=== PATIENT | male | born 1975 | race Caucasian/White ===

== ENCOUNTER 2017-03-18 06:07 | Observation (INO) | payer MEDICARE, SELFPAY ==
[2017-03-18 06:08] VITALS: BP 155/80; PULSE 94; RESP 18; TEMP 36.6; O2SAT 96; BMI 51.3
--- NOTE | 2017-03-18 06:18 | CT_ITS ---
CT abdomen pelvis wo con CLINICAL INDICATION: Generalized abdominal pain worse since last night ITS.REASON: ABD PAIN ORDERING PHYSICIAN: Sidney Judge MD PATIENT AGE: 41 years COMPARISON: None TECHNIQUE: Axial images obtained with sagittal and coronal reformats. PROCEDURE: Oral Contrast: None IV Contrast: None . FINDINGS: Lung base images are unremarkable aside from multiple healing rib fractures posteriorly. The liver, spleen, adrenal glands, pancreas, gallbladder, and kidneys have an unremarkable unenhanced CT appearance. No obvious intestinal obstruction or free air. There is thickening of the anterior abdominal wall at the level of the umbilicus. There is focal thickening of the small bowel at this region. There may be a small knuckle of a hernia at this area containing a loop of the small bowel.. Repeat exam with IV and oral contrast recommended for further evaluation. There is colonic diverticulosis. No evidence of diverticulitis. IMPRESSION: Single loop of thickened small bowel closely associated with the anterior abdominal wall with postoperative changes of the intra-abdominal wall. Small possible knuckle of the hernia at this area. Recommend repeat exam with IV and oral contrast.
[2017-03-18 06:31] LABS: Microscopic, Urine URINE MICROSCOPIC (MICROSCOPIC)
[2017-03-18 06:54] LABS: Basophils % 0.3 % (0.1-2.0); Eosinophils # 0.2 K/mm3 (0.0-0.4); Eosinophils % 1.3 % (0.1-12.0); Hematocrit 44.6 % (42.0-52.0); Hemoglobin 14.2 g/dL (14.1-18.0); Lymphocytes # 1.7 K/mm3 (0.7-4.5); Lymphocytes % 12.2 K/mm3 (10-50); Mean Corpuscular HGB Conc 31.8 g/dL (31.8-35.4); Mean Corpuscular Hemoglobin 27.9 pg (27.0-31.2); Mean Corpuscular Volume 87.7 fl (80-94); Mean Platelet Volume 7.8 fl (7.4-10.4); Monocytes # 0.6 K/mm3 (0.1-1.0); Neutrophils # 11.5 K/mm3 (1.8-7.8); Neutrophils % 82.2 % (37.0-80.0); Platelet Count 212 K/mm3 (142-424); Red Blood Count 5.09 M/mm3 (4.60-6.20); Red Cell Distribution Width 14.4 % (11.5-17.5); White Blood Count 13.9 K/mm3 (4.8-10.8)
[2017-03-18 06:56] LABS: Appearance,Urine CLEAR (Clear); Bilirubin,Urine Negative (Negative); Blood, Urine TRACE-I (Negative); Color,Urine YELLOW (Yellow); Glucose,Urine (UA) Negative (Negative); Ketones,Urine Negative (Negative); Leukocyte Esterase,Urine Negative (Negative); Nitrate,Urine Negative (Negative); Protein,Urine TRACE (Negative); Specific Gravity, Urine >= 1.030 (1.005-1.030); Urobilinogen,Urine 0.2 EU/dl (0.2)
[2017-03-18 07:00] LABS: Amorphous Sediment,Urine Trace /lpf; Mucus,Urine 3+ /lpf
[2017-03-18 07:07] LABS: Alanine Aminotransferase 23 U/L (12-78); Albumin Level 3.1 gm/dL (3.4-5.0); Albumin/Globulin Ratio 0.7 (1.1-1.8); Alkaline Phosphatase 84 U/L (46-116); Amylase 27 U/L (25-125); Anion Gap 9.6 mEq/L (5-15); Aspartate Amino Transferase 11 U/L (15-37); Bilirubin,Total 0.3 mg/dL (0.2-1.0); Blood Urea Nitrogen 14 mg/dL (7-18); Carbon Dioxide 33 mmol/L (21.0-32.0); Chloride 104 mmol/L (98-107); Creatinine Clearance Estimated 113 mL/min (0-300); Creatinine,Serum 0.98 mg/dL (0.70-1.30); Estimated Glomerular Filt Rate 83 ml/min (>60); GFR (African American) 101 ML/MIN (>60); Globulin 4.2 gm/dl (1.3-3.2); Glucose 122 mg/dL (74-106); Lipase 59 u/L (73-393); Potassium 4.6 mmoL/L (3.5-5.1); Sodium 142 mmol/L (136-145); Total Protein,Serum 7.3 gm/dL (6.4-8.2)
--- NOTE | 2017-03-18 07:29 | HMH.EDNVD ---
ED Disposition Condition on Discharge: Good - Critical Care Critical Care Time: No <AlfieSidney Jaime - Last Filed: 03/18/17 08:06> Condition on Discharge: Fair - Critical Care Critical Care Time: No <CassiemilyJosé Miguel - Last Filed: 03/18/17 13:12> Clinical Impression: Small bowel obstruction, Enteritis, Abdominal pain Disposition: Still a Patient Instructions: DI for Acute Abdomen Referrals: Edyta Begum PA [Primary Care Provider] - Attestation: On 03/18/17, the high probability of a clinically significant, sudden or life threatening deterioration of the following system(s) required my full and direct attention, intervention and personal management. The time I documented below is in addition to time spent performing reported procedures but includes the following listed in this critical care notation. Medical Decision Making - Medical Records Medical records reviewed: Yes: I reviewed the patient's medical records. - Lab Data Lab results reviewed: Yes: I reviewed the patient's lab results. Result diagrams: 03/18/17 06:45 03/18/17 06:45 - CT Data CT Scan: Abdomen, Pelvis Time Received: 08:[address] Reviewed: Yes: I have viewed the radiologist's interpretation Preliminary Findings: Abnormal - Physician Consults Physician Consulted: daniel Reason -: Pt condition - Jese Inquiry Pt receiving controlled substance: No <AlfieSidney Jaime - Last Filed: 03/18/17 08:06> - Lab Data Result diagrams: 03/18/17 06:45 03/18/17 06:45 - Jese Inquiry Pt receiving controlled substance: No Jese was queried for this patient: No <TamannaJosé Miguel - Last Filed: 03/18/17 13:12> Vital Signs: 03/18/17 06:08 Temperature 97.9 F Temperature Source Oral Pulse Rate [Right Brachial] 94 H Respiratory Rate 18 Blood Pressure [Right Arm] 155/80 Blood Pressure Mean [Right Arm] 105 02 Sat by Pulse Oximetry 96 Oxygen Delivery Method Room Air - Lab Data Lab Results 03/18/17 06:25: Urine Color Yellow, Urine Appearance Clear, Urine pH 6.0, Ur Specific [place] >= 1.030, Urine Protein Trace, Urine Glucose (UA) Negative, Urine Ketones Negative, Urine Blood Trace-i, Urine Nitrate Negative, Urine Bilirubin Negative, Urine Urobilinogen 0.2, Ur Leukocyte Esterase Negative, Urine RBC 3-5, Amorphous Sediment Trace, Urine Mucus 3+ 03/18/17 06:45: WBC 13.9 H, RBC 5.09, Hgb 14.2, Hct 44.6, MCV 87.7, MCH 27.9, MCHC 31.8, RDW 14.4, Plt Count 212, MPV 7.8, Neut % (Auto) 82.2 H, Lymph % (Auto) 12.2, [place] % (Auto) 4.0, Eos % (Auto) 1.3, Baso % (Auto) 0.3, Neut # (Auto) 11.5 H, Lymph # (Auto) 1.7, [place] # (Auto) 0.6, Eos # (Auto) 0.2, Baso # (Auto) 0.0 03/18/17 06:45: Sodium 142, Potassium 4.6, Chloride 104, Carbon Dioxide 33 H, Anion Gap 9.6, BUN 14, Creatinine 0.98, Estimated Creat Clear 113, Estimated GFR 83, Est GFR ( Amer) 101, Glucose 122 H, Calcium 9.0, Total Bilirubin 0.3, AST 11 L, ALT 23, Alkaline Phosphatase 84, Total Protein 7.3, Albumin 3.1 L, Globulin 4.2 H, Albumin/Globulin Ratio 0.7 L, Amylase 27, Lipase 59 L 03/18/17 08:12: Lactic Acid 1.0 Orders (Tests/Meds): ED MEDICATIONS Discontinued Medications Generic Name Dose Route Start Last Admin Trade Name Freq PRN Reason Stop Dose Admin Butorphanol Tartrate 1 mg 03/18/17 08:03 03/18/17 08:17 Stadol 1mg/1ml Vial IV 03/18/17 08:04 1 mg ONCE ONE Administration Ertapenem 1 gm/ Sodium 50 mls @ 100 mls/hr 03/18/17 08:49 03/18/17 11:15 Chloride IV 03/18/17 08:50 100 mls/hr ONCE ONE Administration Protocol Ketorolac Tromethamine 30 mg 03/18/17 06:24 03/18/17 06:25 Toradol 30mg/Ml Vial IV 03/18/17 06:25 30 mg ONCE ONE Administration Promethazine HCl 12.5 mg 03/18/17 08:03 03/18/17 08:17 Phenergan 25mg/Ml 1ml Vial IV 03/18/17 08:04 12.5 mg ONCE ONE Administration Sodium Chloride 25 ml 03/18/17 08:03 03/18/17 08:17 Sod Chlor 0.9% 25ml Bag IV 03/18/17 08:04 25 ml ONCE ONE Administration O
--- NOTE | 2017-03-18 07:32 | ED_ITS ---
ED Disposition Condition on Discharge: Good - Critical Care Critical Care Time: No <AlfieSidney Jaime - Last Filed: 03/18/17 08:06> Condition on Discharge: Fair - Critical Care Critical Care Time: No <CassiemilyJosé Miguel - Last Filed: 03/18/17 13:12> Clinical Impression: Small bowel obstruction, Enteritis, Abdominal pain Disposition: Still a Patient Instructions: DI for Acute Abdomen Referrals: Edyta Begum PA [Primary Care Provider] - Attestation: On 03/18/17, the high probability of a clinically significant, sudden or life threatening deterioration of the following system(s) required my full and direct attention, intervention and personal management. The time I documented below is in addition to time spent performing reported procedures but includes the following listed in this critical care notation. Medical Decision Making - Medical Records Medical records reviewed: Yes: I reviewed the patient's medical records. - Lab Data Lab results reviewed: Yes: I reviewed the patient's lab results. Result diagrams: 03/18/17 06:45 03/18/17 06:45 - CT Data CT Scan: Abdomen, Pelvis Time Received: 08:[address] Reviewed: Yes: I have viewed the radiologist's interpretation Preliminary Findings: Abnormal - Physician Consults Physician Consulted: daniel Reason -: Pt condition - Jese Inquiry Pt receiving controlled substance: No <AlfieSidney Jaime - Last Filed: 03/18/17 08:06> - Lab Data Result diagrams: 03/18/17 06:45 03/18/17 06:45 - Jese Inquiry Pt receiving controlled substance: No Jese was queried for this patient: No <TamannaJosé Miguel - Last Filed: 03/18/17 13:12> Vital Signs: 03/18/17 06:08 Temperature 97.9 F Temperature Source Oral Pulse Rate [Right Brachial] 94 H Respiratory Rate 18 Blood Pressure [Right Arm] 155/80 Blood Pressure Mean [Right Arm] 105 02 Sat by Pulse Oximetry 96 Oxygen Delivery Method Room Air - Lab Data Lab Results 03/18/17 06:25: Urine Color Yellow, Urine Appearance Clear, Urine pH 6.0, Ur Specific [place] >= 1.030, Urine Protein Trace, Urine Glucose (UA) Negative, Urine Ketones Negative, Urine Blood Trace-i, Urine Nitrate Negative, Urine Bilirubin Negative, Urine Urobilinogen 0.2, Ur Leukocyte Esterase Negative, Urine RBC 3-5, Amorphous Sediment Trace, Urine Mucus 3+ 03/18/17 06:45: WBC 13.9 H, RBC 5.09, Hgb 14.2, Hct 44.6, MCV 87.7, MCH 27.9, MCHC 31.8, RDW 14.4, Plt Count 212, MPV 7.8, Neut % (Auto) 82.2 H, Lymph % (Auto ) 12.2, [place] % (Auto) 4.0, Eos % (Auto) 1.3, Baso % (Auto) 0.3, Neut # (Auto) 11.5 H, Lymph # (Auto) 1.7, [place] # (Auto) 0.6, Eos # (Auto) 0.2, Baso # (Auto) 0.0 03/18/17 06:45: Sodium 142, Potassium 4.6, Chloride 104, Carbon Dioxide 33 H, Anion Gap 9.6, BUN 14, Creatinine 0.98, Estimated Creat Clear 113, Estimated GFR 83, Est GFR ( Amer) 101, Glucose 122 H, Calcium 9.0, Total Bilirubin 0.3, AST 11 L, ALT 23, Alkaline Phosphatase 84, Total Protein 7.3, Albumin 3.1 L , Globulin 4.2 H, Albumin/Globulin Ratio 0.7 L, Amylase 27, Lipase 59 L 03/18/17 08:12: Lactic Acid 1.0 Orders (Tests/Meds): ED MEDICATIONS Discontinued Medications Generic Name Dose Route Start Last Admin Trade Name Freq PRN Reason Stop Dose Admin Butorphanol Tartrate 1 mg 03/18/17 08:03 03/18/17 08:17 Stadol 1mg/1ml Vial IV 03/18/17 08:04 1 mg ONCE ONE Administration
--- NOTE | 2017-03-18 08:05 | CT_ITS ---
CT abdomen pelvis w con CLINICAL INDICATION: Abdominal pain with nausea and vomiting ITS.REASON: abd pain ORDERING PHYSICIAN: Sidney Judge MD PATIENT AGE: 41 years COMPARISON: Previous unenhanced exam from the same day TECHNIQUE: Axial images obtained with sagittal and coronal reformats. PROCEDURE: Oral Contrast: Gastrografin IV Contrast: 75 mL's of [id number]. FINDINGS: Study is repeated with IV and oral contrast for better opacification of the small bowel. Study is limited secondary to patient body habitus. There is persistent thickened loop of small bowel involving the distal jejunum/proximal ileum there are postsurgical changes of the anterior abdominal wall at this area with possible small knuckle of a hernia. The bowel loops that are thickened are however within the peritoneum. No pneumatosis of the thickened bowel in this region. There is no evidence of small bowel obstruction. Contrast does move distal to this region. No free air. No abscess. No evidence of appendicitis or diverticulitis. There are diverticula involving the sigmoid colon. The liver, spleen, pancreas, and adrenal glands and kidneys are unremarkable. No obstructive uropathy. IMPRESSION: Persistent thickened loop of small bowel in the distal jejunum/proximal ileum adjacent to postsurgical changes of the abdominal wall. These findings could be related to inflammatory bowel disease/enteritis. Small bowel ischemia is not entirely excluded. No evidence of small bowel obstruction.
--- NOTE | 2017-03-18 09:44 | PC.NURSE ---
pt to CT scan via wheelchair.
--- NOTE | 2017-03-18 12:29 | PC.NURSE ---
pt unable to keep fluids down during po challenge
[2017-03-18 14:51] VITALS: BP 124/80; PULSE 86; RESP 18; TEMP 36.7; O2SAT 94
[2017-03-18 14:53] VITALS: BMI 59.3
--- NOTE | 2017-03-18 14:55 | PC.NURSE ---
REPORT CALLED TO JA ABRAHAM PER RIYA PORTILLO RN
[2017-03-18 15:02] VITALS: BP 152/90; PULSE 64; RESP 22; TEMP 36.9; O2SAT 98
[2017-03-18 20:00] VITALS: BP 131/63; PULSE 75; RESP 20; TEMP 36.4; O2SAT 96
[2017-03-19 04:00] VITALS: BP 153/68; PULSE 68; RESP 20; TEMP 36.6; O2SAT 96
--- NOTE | 2017-03-19 04:39 | PC.NURSE ---
PT HAS SLEPT INTERMITTENTLY. BOWELS SOUNDS NOTED ON INITIAL ASSESSMENT. PT STATES HE HAS HAD LOOSE BM. NO COMPLAINTS OF ABD PAIN. STATES SOME ABD SORENESS. NO N/V REPORTED. NPO FOR CONSULT THIS AM.
[2017-03-19 07:05] LABS: Basophils % 0.5 % (0.1-2.0); Eosinophils # 0.2 K/mm3 (0.0-0.4); Eosinophils % 2.4 % (0.1-12.0); Hemoglobin 13.2 g/dL (14.1-18.0); Lymphocytes # 2.4 K/mm3 (0.7-4.5); Lymphocytes % 30.4 K/mm3 (10-50); Mean Corpuscular HGB Conc 32.2 g/dL (31.8-35.4); Mean Platelet Volume 7.6 fl (7.4-10.4); Monocytes # 0.4 K/mm3 (0.1-1.0); Monocytes % 5.5 % (1.7-9.3); Neutrophils # 4.9 K/mm3 (1.8-7.8); Neutrophils % 61.3 % (37.0-80.0); Platelet Count 177 K/mm3 (142-424); Red Blood Count 4.71 M/mm3 (4.60-6.20); Red Cell Distribution Width 14.7 % (11.5-17.5); White Blood Count 7.9 K/mm3 (4.8-10.8)
[2017-03-19 07:10] LABS: Blood Urea Nitrogen 14 mg/dL (7-18); Carbon Dioxide 31 mmol/L (21.0-32.0); Chloride 108 mmol/L (98-107); Creatinine Clearance Estimated 123 mL/min (0-300); Estimated Glomerular Filt Rate 92 ml/min (>60); GFR (African American) 111 ML/MIN (>60); Glucose 87 mg/dL (74-106); Magnesium 1.7 mg/dL (1.4-2.2); Sodium 145 mmol/L (136-145)
--- NOTE | 2017-03-19 07:35 | P.CONPHA_ITS ---
[facility] Pharmacy VTE Monitoring - Patient Demographics Admission date: 03/18/17 Report Date: 03/19/17 Time: 07:35 Allergies/Adverse Reactions: Patient Allergies morphine [MORPHINE] Allergy (Intermediate, Verified 03/18/17 06:14) HALLUCINATION Height: 1.88 m Weight: 209.815 kg Patient Problems: Current Active Problems Small bowel obstruction (Acute) Enteritis (Acute) Abdominal pain (Acute) - VTE Risk Labs: VTE Related Lab Results Hgb 13.2 g/dL (14.1-18.0) L 03/19/17 06:30 Hct 41.0 % (42.0-52.0) L 03/19/17 06:30 Plt Count 177 K/mm3 (142-424) 03/19/17 06:30 BUN 14 mg/dL (7-18) 03/19/17 06:30 Creatinine 0.90 mg/dL (0.70-1.30) 03/19/17 06:30 Estimated Creat Clear 123 mL/min (0-300) 03/19/17 06:30 VTE Score: 3 VTE Risk Level: Low Risk - Prophylaxis VTE Prophylaxis Ordered?: Yes Types of VTE Prophylaxis: TEDS Knee High Location of Applied Device: Bilateral Lower Extremeties - VTE Diagnosis Confirmed Treatment or plan recommended: Continue Current Treatment
[2017-03-19 07:46] VITALS: BP 155/59; PULSE 84; RESP 20; TEMP 36.7; O2SAT 93
[2017-03-19 08:00] VITALS: PULSE 84; RESP 20; O2SAT 93
--- NOTE | 2017-03-19 08:33 | FL_ITS ---
FL small bowel follow through CLINICAL INDICATION: Abdominal pain, follow-up abnormal CT abdomen. ITS.REASON: abd pain ORDERING PHYSICIAN: Sidney Judge MD PATIENT AGE: 41 years COMPARISON: CT abdomen 03/18/2017 FINDINGS: Patient was scheduled for a regular upper GI with small bowel follow-through. However, the patient could not be examined on the fluoroscopy table due to exceeding the weight of the table. Therefore, the upper GI was not performed. Small bowel follow-through was performed with images only. Fluoroscopy could not be performed. FINDINGS: There is no evidence of cyst bowel obstruction. Contrast reaches the large bowel by the 45 minute exam. On the final images crosstable lateral and oblique views were performed. The crosstable lateral view did demonstrate focal protrusion of a small bowel loop into the abdominal wall consistent with a small hernia as suspected on the CT scan at the region of the umbilical area. There is some minimal dilatation of the small bowel deep to this region and inferior likely corresponding to the area of thickened minimally distended small bowel as seen on the CT scan. IMPRESSION: 1. Somewhat limited study as fluoroscopy could not be performed. 2. No evidence of small bowel obstruction. 3. There is a small umbilical hernia containing a knuckle of the the small bowel with very minimal dilatation of the small bowel just deep and inferior to this region which could be due to partial obstruction or at atony from prior surgery. No obstruction is evident proximal to this region.
--- NOTE | 2017-03-19 08:35 | HMH.GSCON ---
*Admission Date: 03/18/17 *Chief complaint: abdominal pain *History of present illness: This is a 41-year-old gentleman who presented emergency department yesterday with a 2-3 day history of abdominal pain that he describes as sharp and crampy . He has continued to have bowel function. This morning he feels fine . Evaluation emergency department included a CT scan that revealed no sign of obstruction, but focal thickening of the bowel just behind the umbilicus. He has a complex past surgical history consisting of multiple umbilical hernia repairs. The following is from his ED evaluation: 41 year old white male with history of multiple surgeries for periumbilical hernia ([facility]). Usually he has periumbilical pain associated with certain types of foods like steak. He knows how to handle this pain. 3 days ago after eating an apple he developed periumbilical cramps that were intermittent until Sunday night when it became worse and rated it as 5/10. He continued to have sandra-umbilical abdominal cramps until 4:00 in the morning when the pain became so intense rated 10/10 and he vomited twice. He had sense of chills but no fever. He denies having hematemesis coffee-ground emesis diarrhea shortness of breath chest pain or palpitation. Denies having back pain. Review of Systems - Constitutional Denies anorexia, Denies chills - Eyes Denies change in vision - ENT Denies change in voice - *Cardiovascular Denies chest pain - *Respiratory Denies cough - *Gastrointestinal Reports abdominal pain Comments: now improved - *Genitourinary Denies blood in urine - *Neurologic Denies seizure-like activity - Psychiatric Denies anxiety - Hematologic/Lymphatic Denies easy bleeding [facility] History Medical History: Reports:: MRSA Denies:: Cancer, Diabetes Mellitus Type 1, Diabetes Mellitus Type 2 Other Medical History: Reports: Arthritis Laterality Cases: Left: Partial Knee Replacement Amputation: No Fractures: No - *Social History Educational Level: Completed High School Smoking Status: Current every day smoker Tobacco Type: cigarettes # Packs/Day (cigarettes): 1 Alcohol Intake: never Occupational Status: disabled Housing: apartment Household Members: none - Psychiatric History Expresses thoughts of harming self/others: None Suicide Plan Description: No Plan *Family Hx:: Asthma Meds Home Medications Medication Instructions Recorded Confirmed Type Cartilage/Collagen/Bor/Hyalur 1 each PO DAILY 03/18/17 03/18/17 History [Joint Health Tablet] Escitalopram Oxalate [Lexapro] 20 mg PO DAILY 03/18/17 03/18/17 History Lisinopril [Lisinopril 40mg Tablet] 40 mg PO DAILY 03/18/17 03/18/17 History Meloxicam 15 mg PO DAILY 03/18/17 03/18/17 History Metoprolol Tartrate 50 mg PO BID 03/18/17 03/18/17 History Allergies Allergy/AdvReac Type Severity Reaction Status Date / Time morphine [MORPHINE] Allergy Intermediate HALLUCINATI Verified 03/18/17 06:14 ON Exam Vital signs and Labs for Last 24 Hours: Temp Pulse Resp BP Pulse Ox 98.1 F 84 20 155/59 93 L 03/19/17 07:46 03/19/17 07:46 03/19/17 07:46 03/19/17 07:46 03/19/17 07:46 Laboratory Results - last 24 hr 03/19/17 06:30: WBC 7.9 D, RBC 4.71, Hgb 13.2 L, Hct 41.0 L, MCV 87.0, MCH 28.0, MCHC 32.2, RDW 14.7, Plt Count 177, MPV 7.6, Neut % (Auto) 61.3, Lymph % (Auto) 30.4, [place] % (Auto) 5.5, Eos % (Auto) 2.4, Baso % (Auto) 0.5, Neut # (Auto) 4.9, Lymph # (Auto) 2.4, [place] # (Auto) 0.4, Eos # (Auto) 0.2, Baso # (Auto) 0.0 03/19/17 06:30: Sodium 145, Potassium 4.0, Chloride 108 H, Carbon Dioxide 31, Anion Gap 10.0, BUN 14, Creatinine 0.90, Estimated Creat Clear 123, Estimated GFR 92, Est GFR ( Amer) 111, Glucose 87 D, Magnesium 1.7 I & O for Last 24 hours: Intake & Output 03/16/17 03/17/17 03/18/17 03/19/17 11:59 11:59 11:59 11:59 Intake Total 1220 / 1220 Balance 1220 / 1220 Weight
--- NOTE | 2017-03-19 08:38 | HMH.HPDC ---
General - General Admission date: 03/18/17 Discharge date: 03/19/17 *Admission Date: 03/18/17 *History of present illness: This is a 41-year-old gentleman who presented emergency department yesterday with a 2-3 day history of abdominal pain that he describes as sharp and crampy . He has continued to have bowel function. This morning he feels fine . Evaluation emergency department included a CT scan that revealed no sign of obstruction, but focal thickening of the bowel just behind the umbilicus. He has a complex past surgical history consisting of multiple umbilical hernia repairs. years old white male with history of multiple surgeries for periumbilical hernia and [facility]. Usually he has periumbilical pain associated with certain types of foods like steak. He he knows how to handle this pain. 3 days ago after eating an apple he developed periumbilical cramps that was intermittent until Sunday night when it became worse and rated it as 5/10. He continued to have sandra-umbilical abdominal cramps until 4:00 in the morning when the pain became so intense rated 10/10 and he vomited twice. He had sense of chills but no fever. He denies having hematemesis coffee-ground emesis diarrhea shortness of breath chest pain or palpitation. Denies having back pain. He was brought to the ED and evaluated by Dr. Judge underwent labs with a white count of 13k and a noncontrast CT scan that was inconclusive for obstruction. Dr. Judge discussed these findings with the on-call surgeon Dr. Aponte who requested CT scan with p.o. and IV contrast that is currently pending. I interviewed the patient who provided the above narrative. [facility] History I have reviewed the patient's past medical history: Yes Medical History: Reports:: MRSA Denies:: Cancer, Diabetes Mellitus Type 1, Diabetes Mellitus Type 2 Other Medical History: Reports: Arthritis Laterality Cases: Left: Partial Knee Replacement Amputation: No Fractures: No - *Social History Educational Level: Completed High School Smoking Status: Current every day smoker Tobacco Type: cigarettes # Packs/Day (cigarettes): 1 Alcohol Intake: never Occupational Status: disabled Housing: apartment Household Members: none - Psychiatric History Expresses thoughts of harming self/others: None Suicide Plan Description: No Plan *Family Hx:: Asthma Review of Systems - Review of Systems Review of systems:: pertinent systems reviewed and negative unless documented below - Constitutional Denies fever(s) - Eyes Denies change in vision - ENT Denies sore throat - *Cardiovascular Denies chest pain at rest - *Respiratory Denies cough - *Gastrointestinal Reports abdominal pain, Reports nausea, Reports vomiting - *Musculoskeletal Denies joint pain - *Neurologic Denies seizure-like activity - Psychiatric Denies anxiety Exam Vital signs and Labs for Last 24 Hours: Temp Pulse Resp BP Pulse Ox 98.1 F 84 20 155/59 93 L 03/19/17 07:46 03/19/17 07:46 03/19/17 07:46 03/19/17 07:46 03/19/17 07:46 Laboratory Results - last 24 hr 03/19/17 06:30: WBC 7.9 D, RBC 4.71, Hgb 13.2 L, Hct 41.0 L, MCV 87.0, MCH 28.0, MCHC 32.2, RDW 14.7, Plt Count 177, MPV 7.6, Neut % (Auto) 61.3, Lymph % (Auto) 30.4, [place] % (Auto) 5.5, Eos % (Auto) 2.4, Baso % (Auto) 0.5, Neut # (Auto) 4.9, Lymph # (Auto) 2.4, [place] # (Auto) 0.4, Eos # (Auto) 0.2, Baso # (Auto) 0.0 03/19/17 06:30: Sodium 145, Potassium 4.0, Chloride 108 H, Carbon Dioxide 31, Anion Gap 10.0, BUN 14, Creatinine 0.90, Estimated Creat Clear 123, Estimated GFR 92, Est GFR ( Amer) 111, Glucose 87 D, Magnesium 1.7 I & O for Last 24 hours: Intake & Output 03/16/17 03/17/17 03/18/17 03/19/17 11:59 11:59 11:59 11:59 Intake Total 1220 / 1220 Balance 1220 / 1220 Weight 462 lb 9 oz - Constitutional no acute distress - *Routine HEENT Exam Head: Present: normocephalic Eye: Present: EOMI, PER
== END 2017-03-19 16:00 | disposition home or self-care (01) ==
LOC: ER 08:23 → 2ND 15:20
PROVIDERS: Emergency Medicine; Admitting Provider Emergency Medicine; Emergency Provider Emergency Medicine; Family Provider Physician Assistant; PCP Physician Assistant; Visit Provider Emergency Medicine
DX: K56.609 Unspecified intestinal obstruction, unspecified as to partial versus complete obstruction (principal); K52.9 Noninfective gastroenteritis and colitis, unspecified; Z86.14 Personal history of Methicillin resistant Staphylococcus aureus infection; F17.210 Nicotine dependence, cigarettes, uncomplicated; Z96.652 Presence of left artificial knee joint; Z79.899 Other long term (current) drug therapy; Z88.5 Allergy status to narcotic agent
CPT/HCPCS: 36415; 74176; 74177; 74250; 80048; 80053; 81001; 82150; 83605; 83690; 83735; 85025; 87040; 87077; 96365; 96374; 96375; 99283; G0378; J0595; J1335; Q9967

== ENCOUNTER → 2017-06-04 15:13 | Outpatient (REF) | payer MEDICARE, SELFPAY ==
[2017-06-04 17:59] LABS: Free T4 (Free Thyroxine) 0.96 ng/dl (0.76-1.46); Thyroid Stimulating Hormone 1.38 uIU/ml (0.358-3.740)
== END ==
LOC: LAB 15:13
PROVIDERS: Visit Provider Emergency Medicine
DX: R53.83 Other fatigue (principal)
CPT/HCPCS: 84439; 84443

== ENCOUNTER → 2018-02-20 11:36 | Outpatient (CLI) | payer MEDICARE, SELFPAY ==
--- NOTE | 2018-02-20 11:38 | XR_ITS ---
EXAM: XR lumbar spine min 4V HISTORY: ITS.REASON: Back Pain ORDERING PHYSICIAN: Sidney Judge MD PATIENT AGE: 42 years COMPARISON: None FINDINGS: Normal alignment. No fracture or dislocation. No lytic or blastic change. There are small anterior osteophytes involving the vertebra of the lumbar spine. There are slight decrease in the disc space at L4-5 and L5-S1 suggesting mild degenerative disc disease. The tip of the coccyx is tilted posteriorly with which may relate to an old injury. The SI joints have an unremarkable appearance. IMPRESSION: Mild degenerative changes of lumbar spine Dorsal angulation of the tip of the coccyx suggesting an old injury
== END ==
PROVIDERS: PCP Emergency Medicine; Visit Provider Emergency Medicine
DX: M54.9 Dorsalgia, unspecified (principal)
CPT/HCPCS: 72110

== ENCOUNTER → 2018-02-28 07:55 | Outpatient (CLI) | payer MEDICARE, SELFPAY ==
--- NOTE | 2018-02-28 07:57 | MR_ITS ---
MR lumbar spine wo con HISTORY: Low back pain ITS.REASON: back pain ORDERING PHYSICIAN: Sidney Judge MD PATIENT AGE: 42 years Comparison: 02/20/2018 TECHNIQUE: Standard multiplanar multiecho sequences are performed without contrast. 3-D MIP and myelographic images are also rendered and reviewed FINDINGS: There is normal alignment. The spinal cord is the L1 level. T12-L1 and L1-2 are unremarkable. L2-L3: Minimal bulging disc. L3-L4: Mild degenerative disc disease with mild bulging disc along with facet and ligamentum flavum hypertrophy with mild bilateral foraminal and lateral recess narrowing. L4-5: Bulging disc along with facet and ligamentum flavum hypertrophy with bilateral lateral recess narrowing right greater than left and mild right foraminal narrowing. The bulging disc is slightly eccentric toward the right. L5-S1: There is a large left paracentral and foraminal disc herniation causing left lateral recess and foraminal narrowing. This is compressing upon the left S1 nerve root and exiting L5 nerve root. There is mild facet and ligamentum flavum hypertrophy at this level. IMPRESSION: 1. L3-L4: Mild degenerative disc disease with mild bulging disc along with facet and ligamentum flavum hypertrophy with mild bilateral foraminal and lateral recess narrowing. 2. L4-5: Bulging disc along with facet and ligamentum flavum hypertrophy with bilateral lateral recess narrowing right greater than left and mild right foraminal narrowing. The bulging disc is slightly eccentric toward the right. 3. L5-S1: There is a large left paracentral and foraminal disc herniation causing left lateral recess and foraminal narrowing. This is compressing upon the left S1 nerve root and exiting L5 nerve root. There is mild facet and ligamentum flavum hypertrophy at this level.
== END ==
PROVIDERS: PCP Emergency Medicine; Visit Provider Emergency Medicine
DX: M54.5 Low back pain (principal)
CPT/HCPCS: 72148; 76376

== ENCOUNTER 2018-03-07 13:00 | Outpatient (RCR) | payer MEDICARE, SELFPAY ==
--- NOTE | 2018-02-26 13:46 | HMH.PTOPEV ---
PT Outpatient Evaluation Rehab PT Outpatient Evaluation Start: 02/26/18 13:29 Freq: Status: Active Protocol: Document 02/26/18 13:35 LEVICHRISTINE (Rec: 02/26/18 13:46 VERONICA [id number]) Electronically Signed By Carlos Manuel Shoemaker, JOAO 02/26/18 13:35 Outpatient Therapy Subjective History Subjective History This is the intial Physical Therapy evaluation for Mp Cruz. Pt is a 42 y/o male referred to PT for c/o LBP. Pt reports he has no recollection of what injured his back, does note he was helping friend move tv's ~ 3-4 weeks ago and this is approximately when his back began hurting, although he does not remember a traumatic incident. Chief Complaint Pain Spasms Stiff Symptom Type Ache Throb Sharp Dull Stabbing Symptoms Relieved By Rest/Positioning Symptoms Aggravated By Bending/Stooping Lifting Prior Functional Limitations None Current Functional Limitations Lifting Recreation Activity Bending/Stooping Symptom Description Intermittent Level of pain today (0-10) 3 Pain scale - at its best (0-10) 0 Pain scale - at its worst (0-10) 8 Lumbopelvic Eval Posture Lumbar Spine Posture Standing Position Flattened Assistive device Assistive Devices None / NA Palapation tenderness bilateral thoracic spinal tenderness No lumbar spinal tenderness Yes paraspinal tenderness Yes buttock tenderness No tenderness over symphysis pubis No Lumbar/Sacral Palpation Findings Tenderness Muscle Guarding Accessory Movement L4 bilateral L5 bilateral S1 bilateral Range of Motion Lumbar Spine Active Flexion Range of 30 Motion (degrees) Lumbar Spine Active Extension Range of 20 Motion (degrees) Left Lumbar Spine Lateral Flexion Active 30 Range of Motion (degrees) Right Lumbar Spine Lateral Flexion 30 Active Range of Motion (degrees) Lumbar Spine ROM Limitations Soft Tissue Tightness Pain DTR Rt Patellar
== END 2018-03-07 13:05 | disposition home or self-care (01) ==
LOC: PT 13:00
PROVIDERS: Visit Provider Emergency Medicine
DX: M54.9 Dorsalgia, unspecified (principal)
CPT/HCPCS: 97010; 97014; 97035; 97110; 97163; G0283

== ENCOUNTER → 2018-04-02 09:07 | Outpatient (POV) | payer MEDICARE, SELFPAY ==
[2018-04-02 09:22] VITALS: BP 166/90; PULSE 75; RESP 18; O2SAT 98
--- NOTE | 2018-04-02 09:33 | HMH.PMCON ---
Assessment and Plan (1) Lumbar disc disease with radiculopathy Current visit: No Status: Chronic Category: Medical Code(s): M51.16 - Intervertebral disc disorders with radiculopathy, lumbar region (2) Degenerative joint disease (DJD) of lumbar spine Current visit: No Status: Chronic Qualifiers: Spinal osteoarthritis complication: with radiculopathy Qualified Code(s): M47.26 - Other spondylosis with radiculopathy, lumbar region Category: Medical Code(s): M47.816 - Spondylosis without myelopathy or radiculopathy, lumbar region - Assessment and plan all Dx Assessment and Plan for all problems:: We will see the patient back on an as-needed basis. Patient is welcome to return if his pain returns. Dr. Raza has reviewed this note and agrees with this plan of care. This note was dictated using voice recognition software and may contain errors or omissions HPI - Data of Consult Consult date: 04/02/18 Requesting Physician: Jayla Parker APRN Primary Care Provider: Sidney Judge MD - Consult Narrative Reason for consult: Back pain History of present illness: Mr. Cruz is a 42 year old male who presents today for consultation in regards to his low back pain. Patient was lifting a TV several months ago and had exacerbation of pain. Patient states his pain is a 0 out of 10 today. He is done physical therapy and complete that. He does get some occasional left leg name numbness. Patient does have an abnormal MRI he has an appointment with a neurosurgeon to go this. Patient's not interested in injective therapy and at this time I do not believe it would be beneficial for him. CC: Jayla Parker APRN [facility] History I have reviewed the patient's past medical history: Yes Medical History: Reports:: Depression, Hypertension, MRSA Denies:: Cancer, Diabetes Mellitus Type 1, Diabetes Mellitus Type 2 *Have you ever received a pneumonia vaccine?: No Other Medical History: Reports: Arthritis, Other Laterality Cases: Left: Arthroscopy Knee Other Surgeries: Yes: Hernia Repair Amputation: No Fractures: No - *Social History Smoking Status: Current every day smoker Tobacco Type: cigarettes # Packs/Day (cigarettes): 1 Alcohol Intake: never Substance Use Type: marijuana Last Used Substance: unknown *Occupational Status:: employed Housing: apartment Household Members: none *Travel in the last 8 weeks: None - Psychiatric History Expresses thoughts of harming self/others: None Suicide Plan Description: No Plan Pschychiatric History:: Reports:: Depression Family Hx:: Unable to obtain, Cancer Review of Systems - Review of Systems ROS General: no recent weight change, no fever, no sleep disturbances Respiratory: no cough, no shortness of air, no recurring pulmonary infections Cardiovascular/Peripheral Vascular: No chest pain, No palpitations, no edema, no shortness of breath. Gastrointestinal: no incontinence, normal bowel movements reported Genitourinary: no incontinence Musculoskeletal: Back pain at times Psychiatric: normal mood/ affect Neurological: [denies weakness in extremities], [denies balance issues] Meds Home Medications Medication Instructions Recorded Confirmed Type escitalopram 20 mg tablet 20 mg PO DAILY #30 tab 01/31/18 03/01/18 Rx cyclobenzaprine 10 mg tablet 10 mg PO HS #10 tab 02/20/18 03/01/18 Rx lisinopril 20 mg tablet 20 mg PO DAILY #30 tab 03/15/18 Rx Allergies Allergy/AdvReac Type Severity Reaction Status Date / Time morphine [MORPHINE] Allergy Intermediate HALLUCINATI Verified 03/01/18 09:25 ON Objective Vital signs: Pulse Resp BP Pulse Ox 75 18 166/90 H 98 04/02/18 09:22 04/02/18 09:22 04/02/18 09:22 04/02/18 09:22 Narrative: Physical Exam General: Alert and oriented x3, no acute distress, pleasant and cooperative, [on room air] Lungs: Resps E/U, Symmetrical chest expansion, Eyes: PERRL Musculosk
--- NOTE | 2018-04-02 09:36 | P.CONS_ITS ---
Assessment and Plan (1) Lumbar disc disease with radiculopathy Current visit: No Status: Chronic Category: Medical Code(s): M51.16 - Intervertebral disc disorders with radiculopathy, lumbar region (2) Degenerative joint disease (DJD) of lumbar spine Current visit: No Status: Chronic Qualifiers: Spinal osteoarthritis complication: with radiculopathy Qualified Code(s): M47.26 - Other spondylosis with radiculopathy, lumbar region Category: Medical Code(s): M47.816 - Spondylosis without myelopathy or radiculopathy, lumbar region - Assessment and plan all Dx Assessment and Plan for all problems:: We will see the patient back on an as-needed basis. Patient is welcome to return if his pain returns. Dr. Raza has reviewed this note and agrees with this plan of care. This note was dictated using voice recognition software and may contain errors or omissions HPI - Data of Consult Consult date: 04/02/18 Requesting Physician: Jayla Parker APRN Primary Care Provider: Sidney Judge MD - Consult Narrative Reason for consult: Back pain History of present illness: Mr. Cruz is a 42 year old male who presents today for consultation in regards to his low back pain. Patient was lifting a TV several months ago and had exacerbation of pain. Patient states his pain is a 0 out of 10 today. He is done physical therapy and complete that. He does get some occasional left leg name numbness. Patient does have an abnormal MRI he has an appointment with a neurosurgeon to go this. Patient's not interested in injective therapy and at this time I do not believe it would be beneficial for him. CC: Jayla Parker APRN [facility] History I have reviewed the patient's past medical history: Yes Medical History: Reports:: Depression, Hypertension, MRSA Denies:: Cancer, Diabetes Mellitus Type 1, Diabetes Mellitus Type 2 *Have you ever received a pneumonia vaccine?: No Other Medical History: Reports: Arthritis, Other Laterality Cases: Left: Arthroscopy Knee Other Surgeries: Yes: Hernia Repair Amputation: No Fractures: No - *Social History Smoking Status: Current every day smoker Tobacco Type: cigarettes # Packs/Day (cigarettes): 1 Alcohol Intake: never Substance Use Type: marijuana Last Used Substance: unknown *Occupational Status:: employed Housing: apartment Household Members: none *Travel in the last 8 weeks: None - Psychiatric History Expresses thoughts of harming self/others: None Suicide Plan Description: No Plan Pschychiatric History:: Reports:: Depression Family Hx:: Unable to obtain, Cancer Review of Systems - Review of Systems ROS General: no recent weight change, no fever, no sleep disturbances Respiratory: no cough, no shortness of air, no recurring pulmonary infections Cardiovascular/Peripheral Vascular: No chest pain, No palpitations, no edema, no shortness of breath. Gastrointestinal: no incontinence, normal bowel movements reported Genitourinary: no incontinence Musculoskeletal: Back pain at times Psychiatric: normal mood/ affect Neurological: [denies weakness in extremities], [denies balance issues] Meds Home Medications Medication Instructions Recorded Confirmed Type escitalopram 20 mg tablet 20 mg PO DAILY #30 tab 01/31/18 03/01/18 Rx cyclobenzaprine 10 mg tablet 10 mg PO HS #10 tab 02/20/18 03/01/18 Rx lisinopril 20 mg tablet 20 mg PO DAILY #30 tab 03/15/18 Rx
== END ==
PROVIDERS: PCP Emergency Medicine; Visit Provider Clinical Nurse Specialist Family Health
DX: M51.16 Intervertebral disc disorders with radiculopathy, lumbar region (principal); M47.26 Other spondylosis with radiculopathy, lumbar region
CPT/HCPCS: 99202

== ENCOUNTER 2019-02-13 13:27 | Inpatient (IN) | payer MEDICARE, SELFPAY ==
[2019-02-13 13:38] VITALS: BP 182/103; PULSE 96; RESP 16; TEMP 36.9; O2SAT 98; BMI 49.2
--- NOTE | 2019-02-13 13:45 | PC.NURSE ---
BLOOD SENT TO LAB
--- NOTE | 2019-02-13 13:47 | CT_ITS ---
PROCEDURE: CT ABDOMEN PELVIS W CON CLINICAL INDICATION: abd pain Generalized abdominal pain COMPARISON: ABDPELW CT abdomen pelvis w con from 03/18/2017 TECHNIQUE: IV Contrast: 75ML OPTIRAY 350 Oral Contrast 20 mL Gastroview Axial images obtained with sagittal and coronal reformats. All CT scans at the facility use one or more dose reduction, viz: automated exposure control, ma/kV adjustment per patient size (including targeted exams where dose is matched to indication, i.e. head), or iterative reconstruction technique. FINDINGS: LOWER THORAX: There are atelectatic changes in the lung bases. Coronary artery calcifications are noted. ABDOMEN & PELVIS: The liver, spleen, adrenal glands, pancreas, and kidneys have an unremarkable appearance. No renal or ureteral calculi. No hydronephrosis. There is moderate dilatation of the small bowel in the mid and lower abdominal region. The bowel is dilated up to the point where there is a small umbilical hernia. There is moderate stranding of the fat in the anterior abdominal wall adjacent to this hernia. The stranding of the abdominal wall fat was present on the previous exam. Fecal appearing material is present in the some dilated small bowel just proximal to the area of the hernia. The small bowel is decompressed distal to the abdominal wall hernia. No free air is evident. No evidence of appendicitis. There is colonic diverticulosis of the descending and sigmoid colon but no evidence of diverticulitis. No free fluid apparent. There are degenerative changes of the lumbar spine and hips. In addition, there is a complex left paracentral abdominal wall hernia containing fat with herniation of the fat between the peritoneum and the abdominal wall. This is not significantly changed. No herniation of bowel evident within this region. IMPRESSION: Moderate small-bowel obstruction involving the proximal to mid ileal region secondary to an umbilical hernia. There may be adhesions at the hernia site as well. The hernia is small but there is moderate stranding of the fat in the anterior abdominal wall which is chronic consistent with scarring. Dr. Burns was notified of these findings in the ER 02/13/2019 at 5:20 p.m. Dictated by: Toy Marie MD 02/13/2019 17:25 Electronically signed by Toy Marie MD in [place] 02/13/2019 17:25
[2019-02-13 13:52] LABS: Basophils # 0.1 K/mm3 (0-0.2); Basophils % 0.4 % (0.1-2.0); Eosinophils # 0.2 K/mm3 (0.0-0.4); Eosinophils % 1.1 % (0.1-12.0); Hematocrit 49.4 % (42.0-52.0); Hemoglobin 15.2 g/dL (14.1-18.0); Lymphocytes # 1.5 K/mm3 (0.7-4.5); Lymphocytes % 10.3 % (10-50); Mean Corpuscular HGB Conc 30.7 g/dL (31.8-35.4); Mean Corpuscular Hemoglobin 27.5 pg (27.0-31.2); Mean Corpuscular Volume 89.7 fl (80-94); Mean Platelet Volume 7.2 fl (7.4-10.4); Monocytes # 0.9 K/mm3 (0.1-1.0); Monocytes % 6.2 % (1.7-9.3); Neutrophils # 12.1 K/mm3 (1.8-7.8); Platelet Count 281 K/mm3 (142-424); Red Blood Count 5.51 M/mm3 (4.60-6.20); Red Cell Distribution Width 15.1 % (11.5-17.5); White Blood Count 14.7 K/mm3 (4.8-10.8)
[2019-02-13 14:03] LABS: Alanine Aminotransferase 17 U/L (12-78); Albumin Level 3.4 gm/dL (3.4-5.0); Albumin/Globulin Ratio 0.9 (1.1-1.8); Alkaline Phosphatase 74 U/L (46-116); Amylase 24 U/L (25-115); Anion Gap 9.5 mEq/L (5-15); Aspartate Amino Transferase 12 U/L (15-37); Bilirubin,Total 0.4 mg/dL (0.2-1.0); Blood Urea Nitrogen 17 mg/dL (7-18); Calcium 8.8 mg/dL (8.5-10.1); Carbon Dioxide 31 mmol/L (21.0-32.0); Chloride 104 mmol/L (98-107); Creatinine Clearance Estimated 110 mL/min (50-200); Creatinine,Serum 1.01 mg/dL (0.70-1.30); Estimated Glomerular Filt Rate 80 ml/min (>60); GFR (African American) 97 ML/MIN (>60); Globulin 3.9 gm/dl (1.3-3.2); Glucose 134 mg/dL (74-106); Lipase 58 u/L (73-393); Potassium 4.5 mmoL/L (3.5-5.1); Sodium 140 mmol/L (136-145); Total Protein,Serum 7.3 gm/dL (6.4-8.2)
--- NOTE | 2019-02-13 14:21 | HMH.EDABDPAI ---
ED Disposition Clinical Impression: Abdominal pain, Small bowel obstruction Disposition: Admitted As Inpatient Condition on Discharge: Serious Instructions: DI for Acute Abdomen Referrals: Sidney Judge MD [Primary Care Provider] - Time of Disposition: 17:59 - Critical Care Critical Care Time: No Attestation: On 02/13/19, the high probability of a clinically significant, sudden or life threatening deterioration of the following system(s) required my full and direct attention, intervention and personal management. The time I documented below is in addition to time spent performing reported procedures but includes the following listed in this critical care notation. Medical Decision Making - Medical Records Medical records reviewed: Yes: I reviewed the patient's medical records. - Jese Inquiry Pt receiving controlled substance: No Vital Signs: 02/13/19 13:38 02/13/19 15:28 Temperature 98.5 F Temperature Source Oral Pulse Rate [Left Radial] 96 H 72 Respiratory Rate 16 Blood Pressure [Right Arm] 182/103 H 188/98 H Blood Pressure Mean [Right Arm] 129 128 Blood Pressure Position [Right Arm] Sitting Sitting 02 Sat by Pulse Oximetry 98 96 Oxygen Delivery Method Room Air Room Air - Lab Data Lab results reviewed: Yes: I reviewed the patient's lab results. Lab Results 02/13/19 13:40: WBC 14.7 H, RBC 5.51, Hgb 15.2, Hct 49.4, MCV 89.7, MCH 27.5, MCHC 30.7 L, RDW 15.1, Plt Count 281, MPV 7.2 L, Neut % (Auto) 82.0 H, Lymph % (Auto) 10.3, [place] % (Auto) 6.2, Eos % (Auto) 1.1, Baso % (Auto) 0.4, Neut # (Auto) 12.1 H, Lymph # (Auto) 1.5, [place] # (Auto) 0.9, Eos # (Auto) 0.2, Baso # (Auto) 0.1 02/13/19 13:40: Sodium 140, Potassium 4.5, Chloride 104, Carbon Dioxide 31, Anion Gap 9.5, BUN 17, Creatinine 1.01, Estimated Creat Clear 110, Estimated GFR 80, Est GFR ( Amer) 97, Glucose 134 H, Calcium 8.8, Total Bilirubin 0.4, AST 12 L, ALT 17, Alkaline Phosphatase 74, Total Protein 7.3, Albumin 3.4, Globulin 3.9 H, Albumin/Globulin Ratio 0.9 L, Amylase 24 L, Lipase 58 L Result diagrams: 02/13/19 13:40 02/13/19 13:40 Orders (Tests/Meds): ED MEDICATIONS Discontinued Medications Generic Name Dose Route Start Last Admin Trade Name Abi PRN Reason Stop Dose Admin Diatrizoate Meglum/Diatrizoate Sod 30 ml 02/13/19 14:21 02/13/19 14:32 Gastrografin 66%-10% 30ml PO 02/13/19 14:22 30 ml ONCE ONE Administration Hydromorphone HCl 1 mg 02/13/19 17:52 02/13/19 17:30 Dilaudid 2mg/Ml Syringe IV 02/13/19 17:53 1 mg ONCE ONE Administration Ioversol 75 ml 02/13/19 17:10 02/13/19 17:11 Rad-Optiray 350 100ml Vial IV 02/13/19 17:11 75 ml ONCE ONE Administration Protocol Ketorolac Tromethamine 30 mg 02/13/19 14:05 02/13/19 14:05 Toradol 30mg/Ml Vial IV 02/13/19 14:06 30 mg ONCE ONE Administration Ondansetron HCl 4 mg 02/13/19 14:04 02/13/19 13:50 Zofran 4mg/2ml Vial IV 02/13/19 14:05 4 mg ONCE ONE Administration Ondansetron HCl 4 mg 02/13/19 14:05 02/13/19 14:05 Zofran 4mg/2ml Vial IV 02/13/19 14:06 4 mg ONCE ONE Administration Promethazine HCl 12.5 mg 02/13/19 14:31 02/13/19 14:32 Phenergan 25mg/Ml 1ml Vial IV 02/13/19 14:32 12.5 mg ONCE ONE Administration Promethazine HCl 12.5 mg 02/13/19 17:49 02/13/19 17:30 Phenergan 25mg/Ml 1ml Vial IV 02/13/19 17:50 12.5 mg ONCE ONE Administration Sodium Chloride 25 ml 02/13/19 14:31 02/13/19 14:32 Sod Chlor 0.9% 25ml Bag IV 02/13/19 14:32 25 ml ONCE ONE Administration Sodium Chloride 10 ml 02/13/19 17:10 02/13/19 17:11 Rad-Saline Flush 10ml Syringe IV 02/13/19 17:11 10 ml ONCE ONE Administration Sodium Chloride 25 ml 02/13/19 17:49 02/13/19 17:51 Sod Chlor 0.9% 25ml Bag IV 02/13/19 17:50 25 ml ONCE ONE Administration ORDERS Category Date Time Status Lactic Acid Stat Lab 02/13/19 17:40 Ordered Urinalysis and Microscopic Stat Lab
--- NOTE | 2019-02-13 14:45 | PC.NURSE ---
finished po contrast
[2019-02-13 15:28] VITALS: BP 188/98; PULSE 72; O2SAT 96
--- NOTE | 2019-02-13 15:37 | PC.NURSE ---
pt's o2 sats dropped to 86% on ra pt placed on 4L nC
--- NOTE | 2019-02-13 17:22 | PC.NURSE ---
Dr Burns speaking with radiologist at this time.
[2019-02-13 18:00] VITALS: BP 178/88; PULSE 78; RESP 20; O2SAT 94
[2019-02-13 18:20] LABS: Lactic Acid 0.6 mmol/L (0.4-2.0)
--- NOTE | 2019-02-13 18:20 | PC.NURSE ---
report called to cesar lujan
[2019-02-13 18:28] LABS: Microscopic, Urine URINE MICROSCOPIC (MICROSCOPIC)
[2019-02-13 18:30] LABS: Appearance,Urine CLEAR (Clear); Bilirubin,Urine Negative (Negative); Blood, Urine 2+ (Negative); Color,Urine YELLOW (Yellow); Glucose,Urine (UA) Negative (Negative); Ketones,Urine Negative (Negative); Leukocyte Esterase,Urine Negative (Negative); Nitrate,Urine Negative (Negative); Protein,Urine Negative (Negative); Specific Gravity, Urine 1.015 (1.005-1.030); Urobilinogen,Urine 0.2 EU/dl (0.2)
--- NOTE | 2019-02-13 18:30 | PC.NURSE ---
NG placement checked with aspiration and ascultation
--- NOTE | 2019-02-13 18:34 | XR_ITS ---
PROCEDURE: XR CHEST PORTABLE CLINICAL HISTORY: check NG placement COMPARISON: CT ABDOMEN PELVIS W CON from 02/13/2019 FINDINGS: The cardiomediastinal silhouette and pulmonary vascularity are within normal limits. There are mild atelectatic changes in the lung bases Nasogastric tube has been placed. The tip is in the region the upper portion of the body of the stomach IMPRESSION: Mild bibasilar atelectasis. NG tube tip in the region of the upper portion of the body of the stomach Dictated by: Toy Marei MD 02/13/2019 19:05 Electronically signed by Toy Marie MD in [place] 02/13/2019 19:05
--- NOTE | 2019-02-13 18:35 | ECG_ITS ---
APPROVED REPORT Exam: Resting ECG HR:67 bpm ECG Measurements Heart Rate 67 AXES NJ 122 P -4 QRSd 94 QRS -9 QT 382 T 36 QTc 403 <Conclusion> Normal sinus rhythm Normal ECG Electronically signed by : Ricky Ignacio, 02/15/2019 14:21:08
[2019-02-13 18:36] LABS: Squamous Epithelial Cell,Urine Occasional #/hpf (0-5); WBC,Urine Occasional #/hpf (0-3)
[2019-02-13 18:52] LABS: Troponin I < 0.02 ng/ml (0.00-0.06)
[2019-02-13 19:27] VITALS: BP 165/78; PULSE 72; RESP 18; TEMP 36.9; O2SAT 96
[2019-02-13 19:42] VITALS: BP 170/106; PULSE 80; RESP 18; TEMP 37.4; O2SAT 96; BMI 44.2
--- NOTE | 2019-02-14 | PC.NURSE ---
GASTRIC CONTENTS FROM NG SUCTION NOTED BROWN WITH RED TINT IN COLOR WITH FIBROUS DENSITY. 675 ML OUT WHEN CONNECTED TO LOW WALL INTERMITTENT SUCTION AT THIS TIME. PT STATES HE FEELS RELIEF OF NAUSEA AFTER SUCTIONING CONTENTS.
--- NOTE | 2019-02-14 03:34 | PC.NURSE ---
LATE ENTRY PATIENT ARRIVED TO FLOOR VIA WHEELCHAIR FROM ED DEPARTMENT ON 02/13/19 @ [id number]
[2019-02-14 04:00] VITALS: BP 170/108; PULSE 100; RESP 18; TEMP 36.9; O2SAT 92
--- NOTE | 2019-02-14 04:22 | PC.NURSE ---
Addendum entered by Chelsea Clark RN 02/14/19 05:13: CONT LOW WALL SUCTION, NOT INT. WITH PT'S AGGITATION, ATIVAN OFFERED TO PT PER APR. PT'S FAMILY REFUSED PT HAD FALLEN ASLEEP. INFORMED PT'S FAMILY THAT THIS RN WOULD CONTINUE TO MONITOR PT'S AGITATION THIS SHIFT AND REASSESS NEED FOR ATIVAN PER APR. Original Note: A&O X4. BILATERAL DELI COOK AND STRENGTHS EQUAL AND STRONG. PT NOTED TO BE VERY ANXIOUS AND AGITATED THIS SHIFT. C/O NG TUBE HURTING HIS NOSE AND THROAT, REQUEST PAIN MED. ADMINISTERED TORDOL PER APR. PT NOTED RESTING WITH EYES CLOSED UPON REASSESSMENT. UPON INITIAL ASSESSMENT, PT WAS NOTED BENT OVER TRASH CAN VOMITING WITH C/O NAUSEA AND ABD PAIN. PT REQUESTED PHENEGRAN, SPOKE WITH MD, ADMINISTERED NEW ORDER OF PHENEGRAN PER APR. PT ABLE TO REST WITH EYES CLOSED AFTER ADMINISTRATION. HE HAS REQUESTED PHENEGRAN Q3H SINCE ARRIVING ON THE UNIT. THIS RN CONTINUES TO REMIND THE PT THAT PHENEGRAN CAN ONLY BE ADMINISTERED Q6H PRN. GAVE THE OPTION OF ZOFRAN PRN IN BETWEEN PHENEGRAN DOSES, PT REFUSED AND STATES ZOFRAN DOES NOT DO ANYTHING FOR HIM . ADEQUATE GASTRIC CONTENT DRAINAGE NOTED THIS SHIFT THUS FAR, 675 ML OUTPUT NOTED UPON INITIATING INT LOW WALL SUCTION. PT STATED HE FELT SOME RELIEF. GASTRIC CONTENTS NOTED BROWN WITH RED TINGE IN COLOR WITH FIBROUS DENSITY. WILL CONTINUE TO MONITOR DRAINAGE CONTENTS CLOSELY. REMAINS NPO. GENERAL SX CONSULT FOR AM. NO EDEMA NOTED THIS SHIFT THUS FAR. HYPOACTIVE BOWEL SOUNDS NOTED UPON AUSCULTATION IN ALL 4 QUADS. CLEAR BREATH SOUNDS NOTED BILATERALLY UPON AUSCULTATION. PT AMB WITH STAFF X1 STANDBY ASSIST TO AND FROM BATHROOM. REFUSED URINAL. VSS, WITH HTN NOTED. B/P RANGE OF 170/106. PT'S FAMILY AT BEDSIDE REPORTED THAT HE DOES HAVE A HX OF HTN AND IS NOT CURRENTLY ON HTN MEDS THAT THEY ARE AWARE OF. WILL READDRESS WITH PT IN AM. REMAINS SAFE. CALL LIGHT WITHIN REACH. WILL CONTINUE TO MONITOR.
[2019-02-14 05:39] VITALS: BMI 44.2
--- NOTE | 2019-02-14 07:44 | P.CONPHA_ITS ---
[facility] Pharmacy VTE Monitoring - Patient Demographics Admission date: 02/14/19 Report Date: 02/14/19 Time: 07:44 Allergies/Adverse Reactions: Patient Allergies morphine [MORPHINE] Allergy (Severe, Verified 02/13/19 21:14) HALLUCINATION Height: 1.91 m Weight: 160.685 kg Patient Problems: Current Active Problems Abdominal pain (Acute) Small bowel obstruction (Acute) - VTE Risk Labs: VTE Related Lab Results Hgb 15.2 g/dL (14.1-18.0) 02/13/19 13:40 Hct 49.4 % (42.0-52.0) 02/13/19 13:40 Plt Count 281 K/mm3 (142-424) 02/13/19 13:40 BUN 17 mg/dL (7-18) 02/13/19 13:40 Creatinine 1.01 mg/dL (0.70-1.30) 02/13/19 13:40 Estimated Creat Clear 110 mL/min (50-200) 02/13/19 13:40 Was VTE Risk Assessment Performed: Yes VTE Score: 9 VTE Risk Level: Moderate Risk Clinical Trial Participant: No - Prophylaxis VTE Prophylaxis Ordered?: Yes Types of VTE Prophylaxis: TEDS Knee High Location of Applied Device: Not Applicable
--- NOTE | 2019-02-14 07:49 | HMH.PHAINT ---
home medication reconciliation completed using list from Dr Jeet forbes
[2019-02-14 07:51] LABS: Basophils % 0.2 % (0.1-2.0); Eosinophils % 0.3 % (0.1-12.0); Hematocrit 44.5 % (42.0-52.0); Hemoglobin 14.3 g/dL (14.1-18.0); Lymphocytes # 1.1 K/mm3 (0.7-4.5); Lymphocytes % 8.7 % (10-50); Mean Corpuscular Hemoglobin 28.2 pg (27.0-31.2); Mean Corpuscular Volume 88.2 fl (80-94); Mean Platelet Volume 7.6 fl (7.4-10.4); Monocytes # 0.7 K/mm3 (0.1-1.0); Monocytes % 5.3 % (1.7-9.3); Neutrophils # 10.5 K/mm3 (1.8-7.8); Neutrophils % 85.6 % (37.0-80.0); Platelet Count 239 K/mm3 (142-424); Red Blood Count 5.05 M/mm3 (4.60-6.20); Red Cell Distribution Width 14.1 % (11.5-17.5); White Blood Count 12.3 K/mm3 (4.8-10.8)
[2019-02-14 08:00] VITALS: BP 155/89; PULSE 99; RESP 22; TEMP 36.9; O2SAT 96
[2019-02-14 08:04] LABS: Alanine Aminotransferase 10 U/L (12-78); Albumin Level 2.9 gm/dL (3.4-5.0); Albumin/Globulin Ratio 0.9 (1.1-1.8); Alkaline Phosphatase 62 U/L (46-116); Anion Gap 9.4 mEq/L (5-15); Aspartate Amino Transferase 8 U/L (15-37); Bilirubin,Total 0.5 mg/dL (0.2-1.0); Blood Urea Nitrogen 22 mg/dL (7-18); Calcium 8.3 mg/dL (8.5-10.1); Carbon Dioxide 30 mmol/L (21.0-32.0); Chloride 106 mmol/L (98-107); Chol/HDL Ratio 3.5 (1-3.5); Cholesterol 110 mg/dL (140-200); Creatinine Clearance Estimated 100 mL/min (50-200); Creatinine,Serum 1.11 mg/dL (0.70-1.30); Estimated Glomerular Filt Rate 72 ml/min (>60); GFR (African American) 87 ML/MIN (>60); Globulin 3.4 gm/dl (1.3-3.2); Glucose 119 mg/dL (74-106); HDL Cholesterol 31 mg/dL (27-67); LDL Cholesterol 72 mg/dL (0-130); MANUAL DIFFERENTIAL MANUAL DIFFERENTIAL (MANUAL DIFF); Magnesium 1.6 mg/dL (1.4-2.2); Phosphorous 3.2 mg/dL (2.4-4.9); Potassium 4.4 mmoL/L (3.5-5.1); Sodium 141 mmol/L (136-145); Total Protein,Serum 6.3 gm/dL (6.4-8.2); Triglycerides 35 mg/dL (30-200); VLDL Cholesterol 7 mg/dL (0-40)
--- NOTE | 2019-02-14 08:27 | HMH.GSCON ---
*Admission Date: 02/14/19 *Reason for consult:: Small bowel obstruction secondary to recurrent hernia *History of present illness: This is a 43-year-old gentleman seen in consultation from Dr. Judge for evaluation regarding small bowel obstruction secondary to periumbilical hernia. He presented overnight with increasing abdominal pain and had radiographic evidence of small bowel obstruction at a site of an umbilical hernia. The patient states that he has had 3 or 4 hernia repairs and has mesh everywhere in there . The patient states that he has been told by a surgeon in [facility] that he should only undergo surgery for hernia repair if it is life-threatening . He has also been told by a surgeon in [place] that he should only have hernia surgery by hernia specialist . Review of Systems - Constitutional Denies chills - Eyes Denies change in vision - ENT Denies change in voice - *Cardiovascular Denies chest pain - *Respiratory Denies cough - *Gastrointestinal Reports abdominal pain, Reports nausea, Reports vomiting - *Neurologic Denies abnormal movements - Psychiatric Denies anxiety [facility] History Medical History: Reports:: Anxiety, Depression, Hypertension, MRSA, Peripheral Vascular Disease Denies:: Cancer, Diabetes Mellitus Type 1, Diabetes Mellitus Type 2 *Have you ever received a pneumonia vaccine?: No (pt unable to answer at this time, family states probably not ) *Have you received a flu vaccine this season?: No (pt unable to answer at this time, family states i don't so ) Other Medical History: Reports: Arthritis, Other Laterality Cases: Left: Arthroscopy Knee Other Surgeries: Yes: Hernia Repair Amputation: No Fractures: No - *Social History Educational Level: Completed High School Smoking Status: Current every day smoker Tobacco Type: cigarettes # Packs/Day (cigarettes): 1 Alcohol Intake: never Substance Use Type: marijuana *Occupational Status:: employed Housing: apartment Household Members: none *Travel in the last 8 weeks: None - Psychiatric History Pschychiatric History:: Reports:: Anxiety, Depression Family Hx:: Cancer Meds Home Medications Medication Instructions Recorded Confirmed Type Fluticasone Propionate 1 spray INTRANASAL DAILY 02/13/19 02/14/19 History Gabapentin [Gabapentin 100mg Cap] 100 mg PO TID 02/13/19 02/13/19 History Meloxicam 15 mg PO DAILY 02/13/19 02/13/19 History Naproxen 500 mg PO BID 02/13/19 02/13/19 History lisinopriL [Lisinopril 20mg Tab] 20 mg PO DAILY 02/13/19 02/13/19 History Allergies Allergy/AdvReac Type Severity Reaction Status Date / Time morphine [MORPHINE] Allergy Severe HALLUCINATI Verified 02/13/19 21:14 ON Exam Vital signs and Labs for Last 24 Hours: Temp Pulse Resp BP Pulse Ox 98.4 F 100 H 18 170/108 H 92 L 02/14/19 04:00 02/14/19 04:00 02/14/19 04:00 02/14/19 04:00 02/14/19 04:00 Laboratory Results - last 24 hr 02/13/19 07:50: Lactate 0.6 02/13/19 13:40: WBC 14.7 H, RBC 5.51, Hgb 15.2, Hct 49.4, MCV 89.7, MCH 27.5, MCHC 30.7 L, RDW 15.1, Plt Count 281, MPV 7.2 L, Neut % (Auto) 82.0 H, Lymph % (Auto) 10.3, [place] % (Auto) 6.2, Eos % (Auto) 1.1, Baso % (Auto) 0.4, Neut # (Auto) 12.1 H, Lymph # (Auto) 1.5, [place] # (Auto) 0.9, Eos # (Auto) 0.2, Baso # (Auto) 0.1 02/13/19 13:40: Sodium 140, Potassium 4.5, Chloride 104, Carbon Dioxide 31, Anion Gap 9.5, BUN 17, Creatinine 1.01, Estimated Creat Clear 110, Estimated GFR 80, Est GFR ( Amer) 97, Glucose 134 H, Calcium 8.8, Total Bilirubin 0.4, AST 12 L, ALT 17, Alkaline Phosphatase 74, Total Protein 7.3, Albumin 3.4, Globulin 3.9 H, Albumin/Globulin Ratio 0.9 L, Amylase 24 L, Lipase 58 L 02/13/19 13:40: Troponin I < 0.02 02/13/19 18:25: Urine Color Yellow, Urine Appearance Clear, Urine pH 5.0, Ur Specific [place] 1.015, Urine Protein Negative, Urine Glucose (UA) Negative, Urine Ketones Negative, Urine Blood 2+, Urine Nitrate Negative, Urine Bilirubin Negative, Urin
--- NOTE | 2019-02-14 08:42 | [facility]H.HPDC ---
General - General Admission date:: 02/13/19 Discharge date: 02/14/19 *Admission Date: 02/14/19 *Chief complaint: sbo *History of present illness: 43-year-old morbidly obese male with a history of bowel obstruction presents with complaints of abdomen similar to previous bowel obstructions. Specifically the patient complains of diffuse lower abdominal pain with nausea and vomiting.regarding small bowel obstruction secondary to periumbilical hernia. Radiographic evidence of small bowel obstruction at a site of an umbilical hernia. per surgery note: The patient states that he has had 3 or 4 hernia repairs and has mesh everywhere in there . The patient states that he has been told by a surgeon in [facility] that he should only undergo surgery for hernia repair if it is life-threatening . He has also been told by a surgeon in [place] that he should only have hernia surgery by hernia specialist . [facility] History I have reviewed the patient's past medical history: Yes Medical History: Reports:: Anxiety, Depression, Hypertension, MRSA, Peripheral Vascular Disease Denies:: Cancer, Diabetes Mellitus Type 1, Diabetes Mellitus Type 2 *Have you ever received a pneumonia vaccine?: No (pt unable to answer at this time, family states probably not ) *Have you received a flu vaccine this season?: No (pt unable to answer at this time, family states i don't so ) Other Medical History: Reports: Arthritis, Other Laterality Cases: Left: Arthroscopy Knee Other Surgeries: Yes: Hernia Repair Amputation: No Fractures: No - *Social History Educational Level: Completed High School Smoking Status: Current every day smoker Tobacco Type: cigarettes # Packs/Day (cigarettes): 1 Alcohol Intake: never Substance Use Type: marijuana *Occupational Status:: employed Housing: apartment Household Members: none *Travel in the last 8 weeks: None - Psychiatric History Pschychiatric History:: Reports:: Anxiety, Depression Family Hx:: Cancer Review of Systems - Review of Systems Review of systems:: pertinent systems reviewed and negative unless documented below - Constitutional Denies body ache(s), Denies fatigue - Eyes Denies change in vision - ENT Denies dizziness, Denies nasal obstruction - *Cardiovascular Denies chest pain at rest, Denies fast heart rate - *Respiratory Denies chest congestion, Denies shortness of breath - *Gastrointestinal Reports abdominal pain, Reports bloating, Reports change in bowel habits, Reports nausea - *Genitourinary Denies urinary urgency - *Musculoskeletal Denies decreased muscle mass - Integumentary/Breasts Denies rash - *Neurologic Denies abnormal movements, Denies other visual disturbances - Psychiatric Denies anxiety - Endocrine Denies flushing - Hematologic/Lymphatic Denies enlarged lymph nodes - Allergic/Immunologic Denies itchy eyes Exam Vital signs and Labs for Last 24 Hours: Temp Pulse Resp BP Pulse Ox 98.4 F 100 H 18 170/108 H 92 L 02/14/19 04:00 02/14/19 04:00 02/14/19 04:00 02/14/19 04:00 02/14/19 04:00 Laboratory Results - last 24 hr 02/13/19 07:50: Lactate 0.6 02/13/19 13:40: WBC 14.7 H, RBC 5.51, Hgb 15.2, Hct 49.4, MCV 89.7, MCH 27.5, MCHC 30.7 L, RDW 15.1, Plt Count 281, MPV 7.2 L, Neut % (Auto) 82.0 H, Lymph % (Auto) 10.3, [place] % (Auto) 6.2, Eos % (Auto) 1.1, Baso % (Auto) 0.4, Neut # (Auto) 12.1 H, Lymph # (Auto) 1.5, [place] # (Auto) 0.9, Eos # (Auto) 0.2, Baso # (Auto) 0.1 02/13/19 13:40: Sodium 140, Potassium 4.5, Chloride 104, Carbon Dioxide 31, Anion Gap 9.5, BUN 17, Creatinine 1.01, Estimated Creat Clear 110, Estimated GFR 80, Est GFR ( Amer) 97, Glucose 134 H, Calcium 8.8, Total Bilirubin 0.4, AST 12 L, ALT 17, Alkaline Phosphatase 74, Total Protein 7.3, Albumin 3.4, Globulin 3.9 H, Albumin/Globulin Ratio 0.9 L, Amylase 24 L, Lipase 58 L 02/13/19 13:40: Troponin I < 0.02 02/13/19 18:25: Urine Color Yellow, Urine Appearance Clear, Urine
[2019-02-14 08:50] LABS: Eosinophils % 1 % (0-3); Lymphocytes % 5 % (10-50); Monocytes % 7 % (2-9); Neutrophils % 87 % (42-76); Total Cells Counted 100
[2019-02-14 08:51] LABS: Platelet Estimate Normal; RBC Morphology Normal
== END 2019-02-14 09:50 | disposition short-term general hospital (02) | DRG 394 ==
LOC: ER 18:00 → 2ND 18:26
PROVIDERS: Admitting Provider Family Medicine; Emergency Provider Emergency Medicine; PCP Emergency Medicine; Visit Provider Emergency Medicine
DX: K43.0 Incisional hernia with obstruction, without gangrene (principal); Z68.41 Body mass index [BMI] 40.0-44.9, adult; K42.9 Umbilical hernia without obstruction or gangrene; Z72.0 Tobacco use; E66.01 Morbid (severe) obesity due to excess calories; I10 Essential (primary) hypertension; F41.8 Other specified anxiety disorders
CPT/HCPCS: 36415; 43762; 71045; 74177; 80053; 80061; 81001; 82150; 83605; 83690; 83735; 84100; 84484; 85007; 85025; 87040; 93005; 96365; 96375; 96376; 99284; 99285; J2405; J2543; Q9967

== ENCOUNTER 2019-02-18 01:50 | Observation (INO) ==
[2019-02-18 02:10] LABS: Basophils # 0.1 K/mm3 (0-0.2); Basophils % 0.4 % (0.1-2.0); Eosinophils # 0.3 K/mm3 (0.0-0.4); Eosinophils % 1.7 % (0.1-12.0); Hematocrit 48.4 % (42.0-52.0); Hemoglobin 15.6 g/dL (14.1-18.0); Lymphocytes # 1.6 K/mm3 (0.7-4.5); Lymphocytes % 10.1 % (10-50); Mean Corpuscular HGB Conc 32.2 g/dL (31.8-35.4); Mean Corpuscular Volume 87.1 fl (80-94); Mean Platelet Volume 7.5 fl (7.4-10.4); Monocytes # 0.9 K/mm3 (0.1-1.0); Monocytes % 6.1 % (1.7-9.3); Neutrophils # 12.6 K/mm3 (1.8-7.8); Neutrophils % 81.7 % (37.0-80.0); Platelet Count 259 K/mm3 (142-424); Red Blood Count 5.55 M/mm3 (4.60-6.20); White Blood Count 15.5 K/mm3 (4.8-10.8)
[2019-02-18 02:19] LABS: Albumin Level 3.5 gm/dL (3.4-5.0); Albumin/Globulin Ratio 0.9 (1.1-1.8); Anion Gap 12.9 mEq/L (5-15); Bilirubin,Total 0.5 mg/dL (0.2-1.0); Calcium 9.6 mg/dL (8.5-10.1); Globulin 3.9 gm/dl (1.3-3.2); Total Protein,Serum 7.4 gm/dL (6.4-8.2)
--- NOTE | 2019-02-18 02:19 | Emergency Department Note ---
ED Disposition Clinical Impression: Small bowel obstruction Obesity Qualifiers: Obesity type: due to excess calories Obesity classification: adult class 3 (BMI >= 40) Serious obesity comorbidity presence: with serious comorbidity Body mass index: BMI 45.0-49.9 Qualified Code(s): E66.01 - Morbid (severe) obesity due to excess calories Disposition: Admitted as Observation Condition on Discharge: Fair Instructions: DI for Acute Abdomen Referrals: Provider,Referral, [Referring] - - Critical Care Critical Care Time: No Attestation: On 02/18/19, the high probability of a clinically significant, sudden or life threatening deterioration of the following system(s) required my full and direct attention, intervention and personal management. The time I documented below is in addition to time spent performing reported procedures but includes the following listed in this critical care notation. Medical Decision Making - Medical Records Medical records reviewed: Yes: I reviewed the patient's medical records. - Jese Inquiry Pt receiving controlled substance: No Vital Signs: 02/18/19 01:47 02/18/19 05:45 Temperature 97.9 F Temperature Source Oral Pulse Rate [Left] 93 H 78 Respiratory Rate 20 20 Blood Pressure [Left Arm] 147/88 H 158/77 H Blood Pressure Mean [Left Arm] 107 104 Blood Pressure Source [Left Arm] Automatic Cuff Blood Pressure Position [Left Arm] Sitting 02 Sat by Pulse Oximetry 97 93 L Oxygen Delivery Method Room Air Room Air - Lab Data Lab results reviewed: Yes: I reviewed the patient's lab results. Lab Results 02/18/19 01:57: WBC 15.5 H, RBC 5.55, Hgb 15.6, Hct 48.4, MCV 87.1, MCH 28.1, MCHC 32.2, RDW 14.0, Plt Count 259, MPV 7.5, Neut % (Auto) 81.7 H, Lymph % (Auto) 10.1, [place] % (Auto) 6.1, Eos % (Auto) 1.7, Baso % (Auto) 0.4, Neut # (Auto) 12.6 H, Lymph # (Auto) 1.6, [place] # (Auto) 0.9, Eos # (Auto) 0.3, Baso # (Auto) 0.1, Total Counted 100, Neutrophils % (Manual) 86 H, Lymphocytes % (Manual) 10, Monocytes % (Manual) 2, Eosinophils % (Manual) 2, Platelet Estimate Normal, Stomatocytes 1+ 02/18/19 01:57: Sodium 137, Potassium 3.9, Chloride 99, Carbon Dioxide 29, Anion Gap 12.9, BUN 14, Creatinine 1.09, Estimated Creat Clear 102, Estimated GFR 73, Est GFR ( Amer) 89, Glucose 131 H, Calcium 9.6, Total Bilirubin 0.5, AST 10 L, ALT 16, Alkaline Phosphatase 75, Total Protein 7.4, Albumin 3.5, Globulin 3.9 H, Albumin/Globulin Ratio 0.9 L, Amylase 24 L, Lipase 54 L 02/18/19 01:57: ESR 46 H 02/18/19 01:57: C-Reactive Protein 3.4 H 02/18/19 04:51: Lactate 0.9 Result diagrams: 02/18/19 01:57 02/18/19 01:57 Orders (Tests/Meds): ED MEDICATIONS Generic Name Dose Route Start Last Admin Trade Name Freq PRN Reason Stop Dose Admin Sodium Chloride 1,000 mls @ 999 mls/hr 02/18/19 02:00 02/18/19 02:10 Sod Chlor 0.9% 1000ml Bag IV 02/18/19 03:00 999 mls/hr .[id number] MEAGHAN Administration Discontinued Medications Generic Name Dose Route Start Last Admin Trade Name Freq PRN Reason Stop Dose Admin Hydromorphone HCl 1 mg 02/18/19 03:43 02/18/19 03:48 Dilaudid 2mg/Ml Syringe IV 02/18/19 03:44 1 mg ONCE ONE Administration Hydromorphone HCl 1 mg 02/18/19 05:39 02/18/19 05:41 Dilaudid 2mg/Ml Syringe IV 02/18/19 05:40 1 mg ONCE ONE Administration Ketorolac Tromethamine 30 mg 02/18/19 03:09 02/18/19 03:15 Toradol 30mg/Ml Vial IV 02/18/19 03:10 30 mg ONCE ONE Administration Ondansetron HCl 4 mg 02/18/19 02:00 02/18/19 02:10 Zofran 4mg/2ml Vial IV 02/18/19 02:01 4 mg ONCE ONE Administration Promethazine HCl 12.5 mg 02/18/19 05:46 02/18/19 05:51 Phenergan 25mg/Ml 1ml Vial IV 02/18/19 05:47 12.5 mg ONCE ONE Administration Sodium Chloride 25 ml 02/18/19 05:46 02/18/19 05:52 Sod Chlor 0.9% 25ml Bag IV 02/18/19 05:47 25 ml ONCE ONE Administration - CT Data CT Scan: Abdomen, Pelvis Time Received: 03:[address] Reviewed: Yes: I have viewed the radiologist's interpretation Preliminary Findings: Abnormal (sbo) - Physician Consults Physician Consulted: danish Reason -: Transfer to another facilty Nausea/Vomiting/Diarrhea HPI - General Chief complaint: Abdominal Pain Stated complaint: abd. pain Time Seen by Provider: 02/18/19 02:19 Mode of Arrival: EMS Source of Information: Patient, EMS, Medical Record Limitations: No Limitations Description of Symptoms (Recalled from ER Triage Doc. by RN): PATIENT PRESENTS TO TRAUMA 4 VIA EMS FROM HOME C/O ABDOMINAL PAIN THAT STARTED AROUND 1999 YESTERDAY EVENING. REPORTS BEING RELEASED FROM YESTERDAY WHERE HE WAS DIAGNOSED AND TREATED FOR 3 HERNIAS AND 3 BOWEL BLOCKAGES. REPORTS [facility] REFUSING TO DO SURGERY FOR REASONS UNKNOWN AT THIS TIME. - History of Present Illness HPI Narrative: recent admit at [facility] and transfer to - was released about noon sunday and after eating had upper abd pain with nausea and vomiting - MD complaint: nausea, abdominal pain Onset (ago): hour(s) Associated Abdominal Pain: Yes Location of pain: periumbilical Severity: moderate Consistency: colicky Associated symptoms: denies other symptoms - Related Data Home Medications Medication Instructions Recorded Confirmed Gabapentin [Gabapentin 100mg Cap] 100 mg PO TID PRN 02/13/19 02/18/19 Naproxen 500 mg PO BID 02/13/19 02/18/19 Multivitamin [Multivitamins] 1 each PO DAILY 02/18/19 02/18/19 Allergies Allergy/AdvReac Type Severity Reaction Status Date / Time morphine [MORPHINE] Allergy Severe HALLUCINATI Verified 02/13/19 21:14 ON [facility] History - Hepatitis A Screen Drug use history?: No High risk sexual behaviors?: No History of sexually transmitted infection?: No Currently employed?: No Childcare worker?: No Do you have indoor plumbing?: Yes Do you have electricity?: Yes Attestation statement:: This patient has been screened for Hepatitis A risk factors. I have reviewed the patient's past medical history: Yes Medical History: Reports:: Anxiety, Depression, Hypertension, MRSA, Peripheral Vascular Disease Denies:: Cancer, Diabetes Mellitus Type 1, Diabetes Mellitus Type 2 Other Medical History: Reports: Arthritis, Other Laterality Cases: Left: Arthroscopy Knee Other Surgeries: Yes: Hernia Repair Amputation: No Fractures: No Comment: Knee surgery, hernia - Social History Smoking Status: Current every day smoker Tobacco Type: cigarettes # Packs/Day (cigarettes): 1 Alcohol Intake: never Substance Use Type: marijuana Last Used Substance: days (ago) Occupational Status: employed Housing: apartment Household Members: none - Psychiatric History Pschychiatric History:: Reports:: Anxiety, Depression Family Hx:: Cancer ROS Obtained: Yes All systems reviewed & no additional complaints - Constitutional Constitutional: Denies fever(s) - Eyes Eyes: Denies change in vision - ENT Ears, Nose, Mouth, and Throat: Denies sore throat - Cardiovascular Cardiovascular: Denies chest pain at rest - Respiratory Respiratory: No cough - Gastrointestinal Gastrointestingal: Reports: as per HPI, abdominal pain, nausea. Denies: vomiting - Genitourinary Male Genitourinary: Denies hematuria - Musculoskeletal Musculoskeletal: Denies joint pain, Denies joint swelling - Integumentary/Breasts Skin/Breast: Denies rash - Neurologic Neurologic: Denies focal weakness, Denies seizure-like activity Physical Exam - General General appearance: alert, obese - Head Head exam: normocephalic - Eye Eye exam: Present: PERRL, EOMI. Absent: scleral icterus - ENT ENT exam: Present: mucous membranes dry - Neck Neck exam: Present: trachea midline - Respiratory Respiratory exam: Present: normal lung sounds bilaterally. Absent: respiratory distress - Cardiovascular Cardiovascular exam: Present: regular rate, systolic murmur - Abdominal Exam Abdominal exam: Present: soft - Extremities Exam Extremities exam: Absent: calf tenderness - Neurological Exam Neurological exam: Present: alert, CN II-XII intact - Psychiatric Psychiatric exam: Present: normal affect - Skin Skin exam: Absent: rash
[2019-02-18 02:45] LABS: Eosinophils % 2 % (0-3); Lymphocytes % 10 % (10-50); Monocytes % 2 % (2-9); Neutrophils % 86 % (42-76); Stomatocytes 1+; Total Cells Counted 100
--- NOTE | 2019-02-18 07:04 | Pharmacy Consult Notes ---
[facility] Pharmacy VTE Monitoring - Patient Demographics Admission date: 02/18/19 Report Date: 02/18/19 Time: 07:03 Allergies/Adverse Reactions: Patient Allergies morphine [MORPHINE] Allergy (Severe, Verified 02/13/19 21:14) HALLUCINATION Height: 1.91 m Weight: 178.715 kg Patient Problems: Current Active Problems Obesity (Acute) Small bowel obstruction (Acute) - VTE Risk Labs: VTE Related Lab Results Hgb 15.6 g/dL (14.1-18.0) 02/18/19 01:57 Hct 48.4 % (42.0-52.0) 02/18/19 01:57 Plt Count 259 K/mm3 (142-424) 02/18/19 01:57 BUN 14 mg/dL (7-18) 02/18/19 01:57 Creatinine 1.09 mg/dL (0.70-1.30) 02/18/19 01:57 Estimated Creat Clear 102 mL/min (50-200) 02/18/19 01:57 - Prophylaxis Types of VTE Prophylaxis: TEDS Knee High Location of Applied Device: Bilateral Lower Extremeties
--- NOTE | 2019-02-18 09:28 | History & Physical Report ---
*Admission Date: 02/18/19 *Chief complaint: Abdominal Pain *History of present illness: Pt currently sleeping, awakens easily. He denies ABD pain or nausea. He is sleeping when not interupted and Daughter reports he just received pain meds. 43-year-old male patient admitted with abdominal pain following discharge from yesterday 02/17/2019. He reports he went home and ate a cup of vege soup and vomiting it. The daughter reports he awoke her during night 4 hours later, telling her he was having extreme ABD pain and emesis and that the EMS was coming. He now denies ABD pain w/ palpation and denies nausea. He reports a history of bowel obstructions and multiple hernias. 02/[address]: IMPRESSION: 1. Overall no change in the findings consistent with small-bowel obstruction with possible incarcerated small umbilical hernia. There remains thickened small bowel loop in the lower abdomen anteriorly which appears to be a transition point. There remains thickening of the anterior abdominal wall as before. 2. Left lateral abdominal wall hernia noted containing fat and loop of large bowel. 3. Colonic diverticulosis. No evidence of diverticulitis Dictated by: Dr. Marie, 02/18 CXR: IMPRESSION: NG tube tip in the region of the body of the stomach Dictated by: Dr. Marie NGT was placed in ED and he reports decreased ABD pain. WBC 14.7 Gen Surg consulted [facility] History Medical History: Reports:: Anxiety, Depression, Hypertension, MRSA, Peripheral Vascular Disease Denies:: Cancer, Diabetes Mellitus Type 1, Diabetes Mellitus Type 2 *Have you ever received a pneumonia vaccine?: No *Have you received a flu vaccine this season?: No Other Medical History: Reports: Arthritis, Other Laterality Cases: Left: Arthroscopy Knee Other Surgeries: Yes: Hernia Repair Amputation: No Fractures: No - *Social History Smoking Status: Current every day smoker Tobacco Type: cigarettes # Packs/Day (cigarettes): 1 Alcohol Intake: never Substance Use Type: marijuana Last Used Substance: days (ago) *Occupational Status:: employed Housing: apartment Household Members: none *Travel in the last 8 weeks: None - Psychiatric History Pschychiatric History:: Reports:: Anxiety, Depression Family Hx:: Cancer Review of Systems - Constitutional Reports weakness, Denies anorexia - Eyes Denies blurry vision, Denies change in vision - ENT Denies dental pain, Denies dizziness - *Cardiovascular Denies chest pain, Denies shortness of breath - *Respiratory Denies chest congestion, Denies shortness of breath - *Gastrointestinal Reports abdominal pain, Reports nausea, Reports vomiting - *Genitourinary Denies difficulty urinating, Denies painful urination - *Musculoskeletal Denies joint pain, Denies body aches - Integumentary/Breasts Denies hair loss, Denies bleeding lesions - *Neurologic Denies localized weakness, Denies seizure-like activity - Psychiatric Denies thoughts of hurting/killing others, Denies thoughts of hurting/killing yourself - Endocrine Denies cold intolerance, Denies heat intolerance - Hematologic/Lymphatic Denies easy bleeding, Denies easy bruising - Allergic/Immunologic Denies throat swelling, Denies tongue swelling Meds Home Medications Medication Instructions Recorded Confirmed Type Gabapentin [Gabapentin 100mg Cap] 100 mg PO TID PRN 02/13/19 02/18/19 History Naproxen 500 mg PO BID 02/13/19 02/18/19 History Multivitamin [Multivitamins] 1 each PO DAILY 02/18/19 02/18/19 History lisinopriL [Lisinopril 20mg Tab] 20 mg PO DAILY 02/18/19 02/18/19 History Allergies Allergy/AdvReac Type Severity Reaction Status Date / Time morphine [MORPHINE] Allergy Severe HALLUCINATI Verified 02/13/19 21:14 ON Exam Vital signs and Labs for Last 24 Hours: Temp Pulse Resp BP Pulse Ox 97.9 F 78 18 133/67 93 L 02/18/19 08:46 02/18/19 08:46 02/18/19 08:46 02/18/19 08:46 02/18/19 08:41 Laboratory Results - last 24 hr 02/18/19 01:57: WBC 15.5 H, RBC 5.55, Hgb 15.6, Hct 48.4, MCV 87.1, MCH 28.1, MCHC 32.2, RDW 14.0, Plt Count 259, MPV 7.5, Neut % (Auto) 81.7 H, Lymph % (Auto) 10.1, [place] % (Auto) 6.1, Eos % (Auto) 1.7, Baso % (Auto) 0.4, Neut # (Auto) 12.6 H, Lymph # (Auto) 1.6, [place] # (Auto) 0.9, Eos # (Auto) 0.3, Baso # (Auto) 0.1, Total Counted 100, Neutrophils % (Manual) 86 H, Lymphocytes % (Manual) 10, Monocytes % (Manual) 2, Eosinophils % (Manual) 2, Platelet Estimate Normal, Stomatocytes 1+ 02/18/19 01:57: Sodium 137, Potassium 3.9, Chloride 99, Carbon Dioxide 29, Anion Gap 12.9, BUN 14, Creatinine 1.09, Estimated Creat Clear 102, Estimated GFR 73, Est GFR ( Amer) 89, Glucose 131 H, Calcium 9.6, Total Bilirubin 0.5, AST 10 L, ALT 16, Alkaline Phosphatase 75, Total Protein 7.4, Albumin 3.5, Globulin 3.9 H, Albumin/Globulin Ratio 0.9 L, Amylase 24 L, Lipase 54 L 02/18/19 01:57: ESR 46 H 02/18/19 01:57: C-Reactive Protein 3.4 H 02/18/19 04:51: Lactate 0.9 I & O for Last 24 hours: Intake & Output 02/15/19 02/16/19 02/17/19 02/18/19 23:59 23:59 23:59 23:59 Weight 378 lb 4 oz - Constitutional no acute distress - *Routine HEENT Exam Head: Present: normocephalic, atraumatic. Absent: tenderness of temporal artery Eye: Present: EOMI, PERRL. Absent: periorbital swelling, periorbital tenderness ENT: Present: mucous membranes moist - *Routine Neck Exam Present: full ROM, trachea midline. Absent: JVD, tracheal deviation - *Routine Respiratory Exam Present: CTA bilaterally. Absent: accessory muscle use - *Routine Cardiovascular Exam Present: RRR - *Routine Abdominal Exam Present: soft, normoactive bowel sounds, obese. Absent: tenderness, firm - *Routine Extremities Exam Present: full ROM. Absent: calf tenderness - Routine Back/Spine/Pelvis Exam Back/Spine: Present: full ROM. Absent: CVA tenderness - *Routine Skin Exam Present: intact, scars Comments: Scars on ABD Assessment and Plan - Assessment and plan all Dx Assessment and Plan for all problems:: Rounded w/ Dr. Judge, all orders per Dr. Judge 1. NGT to Int LWS 2. Gen Surg consult
--- NOTE | 2019-02-18 12:40 | Consult Report ---
*Admission Date: 02/18/19 *Reason for consult:: Small bowel obstruction *History of present illness: Patient is a 44-year-old white male with diagnosis of "extreme obesity" with weight of 378 pounds who has had numerous abdominal hernia surgery at outside facility with mesh placement. Exact details of prior surgical interventions are unknown. He has had history of recurrent bowel obstructions. He has reportedly been told previously that he should only undergo hernia surgery if it is "life- threatening" and by a "hernia specialist". He had been admitted to this institution on 02/14/2019 with findings of bowel obstruction secondary to possible recurrent hernia. Given the nature of the underlying etiology and prior surgical interventions it was felt that transfer to a tertiary facility would be the most appropriate plan of action for the patient's well-being. Patient was accepted at [facility] and transferred on 02/14/2019. He remained hospitalized there managed with bowel obstruction nonoperatively until yesterday on 02/17/2019 when he was discharged home reportedly taking a full liquid diet. He had recurrent symptoms after returning home and trying to eat some vegetable soup at which time he had significant abdominal pain and nausea. He presented to [facility] emergency room by EMS. Work-up included CT scan without any contrast whatsoever. This revealed findings as noted before consistent with ongoing partial obstruction with possible hernia versus dense adhesions at the umbilical area and some thickened distended small bowel. There is also hernia in the left lower abdomen containing loop of large bowel which was not previously noted. Reportedly [facility] was contacted and declined accepting the patient at that time until attempt was made at nonoperative management of bowel obstruction. Patient had nasogastric tube placed and was admitted for inpatient management. Surgical consultation was obtained today after admission. Review of Systems - Review of Systems Review of systems:: unable to obtain Unable to obtain fully reliable review of systems secondary to the patient's administration of narcotics and anti-medics. - *Neurologic Reports weakness, Denies dizziness, Denies localized weakness, Denies seizure- like activity [facility] History Medical History: Reports:: Anxiety, Depression, Hypertension, MRSA, Peripheral Vascular Disease Denies:: Cancer, Diabetes Mellitus Type 1, Diabetes Mellitus Type 2 *Have you ever received a pneumonia vaccine?: No *Have you received a flu vaccine this season?: No Other Medical History: Reports: Arthritis, Other Laterality Cases: Left: Arthroscopy Knee Other Surgeries: Yes: Hernia Repair Amputation: No Fractures: No - *Social History Educational Level: Completed High School Smoking Status: Current every day smoker Tobacco Type: cigarettes # Packs/Day (cigarettes): 1 Alcohol Intake: never Substance Use Type: marijuana Last Used Substance: days (ago) *Occupational Status:: employed Housing: apartment Household Members: children *Travel in the last 8 weeks: None - Psychiatric History Pschychiatric History:: Reports:: Anxiety, Depression Family Hx:: Cancer Meds Home Medications Medication Instructions Recorded Confirmed Type Gabapentin [Gabapentin 100mg Cap] 100 mg PO TID PRN 02/13/19 02/18/19 History Naproxen 500 mg PO BID 02/13/19 02/18/19 History Multivitamin [Multivitamins] 1 each PO DAILY 02/18/19 02/18/19 History lisinopriL [Lisinopril 20mg Tab] 20 mg PO DAILY 02/18/19 02/18/19 History Allergies Allergy/AdvReac Type Severity Reaction Status Date / Time morphine [MORPHINE] Allergy Severe HALLUCINATI Verified 02/13/19 21:14 ON Exam Vital signs and Labs for Last 24 Hours: Temp Pulse Resp BP Pulse Ox 97.9 F 78 18 133/67 93 L 02/18/19 08:46 02/18/19 08:46 02/18/19 08:46 02/18/19 08:46 02/18/19 08:41 Laboratory Results - last 24 hr 02/18/19 01:57: WBC 15.5 H, RBC 5.55, Hgb 15.6, Hct 48.4, MCV 87.1, MCH 28.1, MCHC 32.2, RDW 14.0, Plt Count 259, MPV 7.5, Neut % (Auto) 81.7 H, Lymph % (Auto) 10.1, Burt % (Auto) 6.1, Eos % (Auto) 1.7, Baso % (Auto) 0.4, Neut # (Auto) 12.6 H, Lymph # (Auto) 1.6, Burt # (Auto) 0.9, Eos # (Auto) 0.3, Baso # (Auto) 0.1, Total Counted 100, Neutrophils % (Manual) 86 H, Lymphocytes % (Manual) 10, Monocytes % (Manual) 2, Eosinophils % (Manual) 2, Platelet Estimate Normal, Stomatocytes 1+ 02/18/19 01:57: Sodium 137, Potassium 3.9, Chloride 99, Carbon Dioxide 29, Anion Gap 12.9, BUN 14, Creatinine 1.09, Estimated Creat Clear 102, Estimated GFR 73, Est GFR ( Amer) 89, Glucose 131 H, Calcium 9.6, Total Bilirubin 0.5, AST 10 L, ALT 16, Alkaline Phosphatase 75, Total Protein 7.4, Albumin 3.5, Globulin 3.9 H, Albumin/Globulin Ratio 0.9 L, Amylase 24 L, Lipase 54 L 02/18/19 01:57: ESR 46 H 02/18/19 01:57: C-Reactive Protein 3.4 H 02/18/19 04:51: Lactate 0.9 I & O for Last 24 hours: Intake & Output 02/16/19 02/17/19 02/18/19 02/19/19 11:59 11:59 11:59 11:59 Weight 378 lb 4 oz Narrative: Patient is somewhat somnolent due to his antiemetics but arouses and wakes up to answer questions appropriately. In general he appears in no acute distress. His abdomen is morbidly obese. There is extensive surgical scarring. There is some bruising from subcutaneous anticoagulation injections. He has some diffuse tenderness without guarding or rebound. Overall abdominal examination is rather difficult due to the patient's body habitus. Results - Labs 02/18/19 01:57 02/18/19 01:57 Laboratory Results - last 24 hr 02/18/19 01:57: WBC 15.5 H, RBC 5.55, Hgb 15.6, Hct 48.4, MCV 87.1, MCH 28.1, MCHC 32.2, RDW 14.0, Plt Count 259, MPV 7.5, Neut % (Auto) 81.7 H, Lymph % (Auto) 10.1, Burt % (Auto) 6.1, Eos % (Auto) 1.7, Baso % (Auto) 0.4, Neut # (Auto) 12.6 H, Lymph # (Auto) 1.6, Burt # (Auto) 0.9, Eos # (Auto) 0.3, Baso # (Auto) 0.1, Total Counted 100, Neutrophils % (Manual) 86 H, Lymphocytes % (Manual) 10, Monocytes % (Manual) 2, Eosinophils % (Manual) 2, Platelet Estimate Normal, Stomatocytes 1+ 02/18/19 01:57: Sodium 137, Potassium 3.9, Chloride 99, Carbon Dioxide 29, Anion Gap 12.9, BUN 14, Creatinine 1.09, Estimated Creat Clear 102, Estimated GFR 73, Est GFR ( Amer) 89, Glucose 131 H, Calcium 9.6, Total Bilirubin 0.5, AST 10 L, ALT 16, Alkaline Phosphatase 75, Total Protein 7.4, Albumin 3.5, Globulin 3.9 H, Albumin/Globulin Ratio 0.9 L, Amylase 24 L, Lipase 54 L 02/18/19 01:57: ESR 46 H 02/18/19 01:57: C-Reactive Protein 3.4 H 02/18/19 04:51: Lactate 0.9 Assessment and Plan - Assessment and plan all Dx Assessment and Plan for all problems:: At this time attempt will be made at nonoperative management of potential bowel obstruction. I will plan to obtain a contrast small bowel follow-through via nasogastric tube. Obviously if the patient requires surgical intervention he will need to be transferred. If he fails nonoperative management or if the small bowel follow-through reveals obstruction he will need to be transferred.
--- NOTE | 2019-02-19 07:11 | Progress Note ---
Subjective Patient reports: feels better, bowel movement Narrative: Patient states that he feels better and is currently asymptomatic. He has had several bowel movements. His small bowel follow-through revealed some dilated bowel with a hernia but no evidence of any obstruction. Exam Vital signs and Labs for Last 24 Hours: Temp Pulse Resp BP Pulse Ox 98.7 F 76 17 149/90 H 97 02/19/19 04:10 02/19/19 04:10 02/19/19 04:10 02/19/19 04:10 02/19/19 04:10 I & O for Last 24 hours: Intake & Output 02/16/19 02/17/19 02/18/19 02/19/19 11:59 11:59 11:59 11:59 Intake Total 0 / 0 Output Total 1999 Balance -1999 Weight 378 lb 4 oz 376 lb - *Routine Abdominal Exam Present: soft. Absent: tenderness Progress Note: A&P Assessment and Plan for All Diagnoses:: We will give full liquid diet this morning. If patient tolerates may be able to be discharged today on a low residue fiber restricted diet with follow-up at [facility] which has been arranged prior to his discharge there a couple of days ago.
--- NOTE | 2019-02-19 09:05 | Discharge Summary ---
General - General Admission date:: 02/18/19 Discharge date: 02/19/19 HPI HPI: 43-year-old male patient currently sitting up in chair resting quietly. He denies any further abdominal pain. NG tube has been discontinued, he does report having several bowel movements throughout the night. He has tolerated a soft diet and will be discharged home on a low residue diet. Information provided patient verbalizes understanding 43-year-old male patient admitted with abdominal pain following discharge from yesterday 02/17/2019. He reports he went home and ate a cup of vege soup and vomiting it. The daughter reports he awoke her during night 4 hours later, telling her he was having extreme ABD pain and emesis and that the EMS was coming. He now denies ABD pain w/ palpation and denies nausea. He reports a history of bowel obstructions and multiple hernias. 02/[address]: IMPRESSION: 1. Overall no change in the findings consistent with small-bowel obstruction with possible incarcerated small umbilical hernia. There remains thickened small bowel loop in the lower abdomen anteriorly which appears to be a transition point. There remains thickening of the anterior abdominal wall as before. 2. Left lateral abdominal wall hernia noted containing fat and loop of large bowel. 3. Colonic diverticulosis. No evidence of diverticulitis Dictated by: Dr. Marie, 02/18 CXR: IMPRESSION: NG tube tip in the region of the body of the stomach Dictated by: Dr. Marie NGT was placed in ED and he reports decreased ABD pain. WBC 14.7 Gen Surg consulted Hospital Course Hospital Course: 43-year-old male patient admitted with abdominal pain following discharge from yesterday 02/17/2019. He reports he went home and ate a cup of vege soup and vomiting it. The daughter reports he awoke her during night 4 hours later, telling her he was having extreme ABD pain and emesis and that the EMS was coming. He now denies ABD pain w/ palpation and denies nausea. He reports a history of bowel obstructions and multiple hernias. 02/[address]: IMPRESSION: 1. Overall no change in the findings consistent with small-bowel obstruction with possible incarcerated small umbilical hernia. There remains thickened small bowel loop in the lower abdomen anteriorly which appears to be a transition point. There remains thickening of the anterior abdominal wall as before. 2. Left lateral abdominal wall hernia noted containing fat and loop of large bowel. 3. Colonic diverticulosis. No evidence of diverticulitis Dictated by: Dr. Marie, 02/18 CXR: IMPRESSION: NG tube tip in the region of the body of the stomach Dictated by: Dr. Marie NGT was placed in ED and he reports decreased ABD pain. WBC 14.7 02/18 Small Bowel Follow Through: IMPRESSION: 1. No transition point evident that would indicate a small bowel obstruction with contrast reaching the large bowel by 1 hour. 2. There are mildly distended small bowel loops in the mid abdominal region without effacement of the folds suggesting enteritis. 3. There is a small umbilical hernia containing a knuckle of small bowel but does not appear to be causing obstruction Dictated by: Dr. Marie, Gen Surg consulted: We will give full liquid diet this morning. If patient tolerates may be able to be discharged today on a low residue fiber restricted diet with follow-up at [facility] which has been arranged prior to his discharge there a couple of days ago. Patient will be discharged home today on a low residue diet, importance of losing weight and smoking cessation stressed with patient. He reports he will be following up with general surgeon has appointment scheduled Objective Vital signs: Temp Pulse Resp BP Pulse Ox 98.6 F 69 16 169/81 H 95 02/19/19 08:00 02/19/19 08:00 02/19/19 08:00 02/19/19 08:00 02/19/19 08:00 no acute distress - *Routine HEENT Exam Head: Present: normocephalic, atraumatic Eye: Present: EOMI, PERRL, normal accommodation ENT: Present: mucous membranes moist - *Routine Neck Exam Present: supple, full ROM, trachea midline. Absent: JVD, tracheal deviation - *Routine Respiratory Exam Present: rhonchi. Absent: accessory muscle use - *Routine Cardiovascular Exam Present: RRR, murmur - *Routine Abdominal Exam Present: soft, normoactive bowel sounds, obese. Absent: tenderness, firm - *Routine Extremities Exam Present: full ROM, pulses intact. Absent: calf tenderness - Routine Back/Spine/Pelvis Exam Back/Spine: Present: full ROM. Absent: CVA tenderness - *Routine Skin Exam Present: intact, scars Comments: MX scars on Abd - *Routine Neurological Exam Present: alert, oriented X3, CN II-XII intact. Absent: pronator drift, altered mental status - Routine Psychiatric Exam Present: normal affect. Absent: suicidal ideation, homicidal ideation Results - Additional Comments Rounded with Dr. Judge all orders per Dr. Judge 1. We will discharge home today 2. Low residue diet 3. Follow-up with [facility] for scheduled appointment DS: Diagnosis - Discharge Diagnosis (1) Obesity Status: Acute (2) Small bowel obstruction Status: Acute (3) Abdominal pain Status: Acute (4) Enteritis Status: Acute (5) Morbid obesity Status: Acute (6) Periumbilical hernia Status: Acute Problem details: Recurrent hernia with no sign of obstruction, but with partial layer of small bowel noted within hernia per SBFT. (7) Recurrent hernia of anterior abdominal wall with obstruction Status: Acute (8) Tobacco use Status: Acute (9) Abdominal pain Status: Resolved Discharge Plan - Patient Discharge Instructions ACTIVITY: Continue current activity DIET: continue same diet Patient Instructions: Small Bowel Obstruction, DI for Small Bowel Obstruction, DI for Obesity -- Adult - Follow up Plan Follow up with: Lobito Love APRN [Advanced Practice Nurse] - 2 weeks Unknown provider or service follow up:: 02/19/19 09:08 [facility] Gen Surg Disposition: Home, Self-Long Term Medications: Home Medications Medication Instructions Recorded Confirmed Type Gabapentin [Gabapentin 100mg Cap] 100 mg PO TID PRN 02/13/19 02/18/19 History Naproxen 500 mg PO BID 02/13/19 02/18/19 History Multivitamin [Multivitamins] 1 each PO DAILY 02/18/19 02/18/19 History lisinopriL [Lisinopril 20mg Tab] 20 mg PO DAILY 02/18/19 02/18/19 History Prescriptions/Medication Reconciliation: Continued Gabapentin [Gabapentin 100mg Cap] 100 mg PO TID PRN PRN Reason: PAIN Multivitamin [Multivitamins] 1 each PO DAILY Naproxen 500 mg PO BID lisinopriL [Lisinopril 20mg Tab] 20 mg PO DAILY - Problem Reconciliation Problems Reviewed?: Yes
== END 2019-02-19 12:06 | disposition home or self-care (01) ==
LOC: ER 01:50 → 2ND 01:50
PROVIDERS: ADMIT Emergency Medicine; ATTEND Emergency Medicine
CPT/HCPCS: 43760; 43762; 71010; 71045; 74176; 74250; 80053; 82150; 83605; 83690; 85007; 85025; 85651; 86140; 96365; 96375; 96376; 99284; G0378; J2405

== ENCOUNTER → 2019-06-03 09:47 | Outpatient (CLI) | payer MEDICARE, SELFPAY ==
--- NOTE | 2019-06-03 09:53 | XR_ITS ---
PROCEDURE: XR KNEE RT 4V CLINICAL INDICATION: right knee pain COMPARISON: [id number] KNEE-4 OR 5 VIEWS-LT from 07/12/2015 [id number] KNEE-4 OR 5 VIEWS-RT from 07/12/2015 FINDINGS: No fracture or dislocation. No lytic or blastic change. There is normal mineralization. There are mild tricompartmental osteoarthritic changes once again noted with decrease in the joint spaces and osteophyte formation involving all 3 compartments. The changes are slightly worse compared to 07/12/2015. Other findings:None. IMPRESSION: Mild tricompartmental osteoarthritic changes slightly progressed compared to the previous exam Dictated by: Toy Marie MD 06/03/2019 10:36 Electronically signed by Toy Marei MD in [place] 06/03/2019 10:36
--- NOTE | 2019-06-03 09:53 | XR_ITS ---
PROCEDURE: XR KNEE LT 4V CLINICAL INDICATION: left knee pain COMPARISON: [id number] KNEE-4 OR 5 VIEWS-LT from 07/12/2015 [id number] KNEE-4 OR 5 VIEWS-RT from 07/12/2015 FINDINGS: No fracture or dislocation. No lytic or blastic change. There is normal mineralization. There are mild osteoarthritic changes with slight decrease in the joint space involving all 3 compartments and osteophyte formation involving all 3 compartments. Lateral compartment appears somewhat more narrowed on today's exam compared to the previous study and the spurring at the patellofemoral joint has somewhat increased.. Other findings:None. IMPRESSION: Mild osteoarthritic changes of the left knee slightly advanced compared to 07/12/2015 Dictated by: Toy Marie MD 06/03/2019 10:34 Electronically signed by Toy Marie MD in [place] 06/03/2019 10:34
== END ==
PROVIDERS: PCP Emergency Medicine; Visit Provider Orthopaedic Surgery
DX: M25.562 Pain in left knee (principal); M25.561 Pain in right knee
CPT/HCPCS: 73564

== ENCOUNTER → 2019-06-13 15:55 | Outpatient (CLI) | payer MEDICARE, SELFPAY ==
[2019-06-13 17:39] LABS: Chloride 104 mmol/L (98-107); Sodium 139 mmol/L (136-145)
[2019-06-13 17:40] LABS: Potassium 5.2 mmoL/L (3.5-5.1)
[2019-06-13 17:42] LABS: Blood Urea Nitrogen 16 mg/dl (9-20); Estimated Glomerular Filt Rate 91 ml/min (>60); GFR (African American) 110 ML/MIN (>60)
[2019-06-13 17:43] LABS: Anion Gap 9.2 mEq/L (5-15); Calcium 9.3 mg/dl (8.4-10.2); Carbon Dioxide 31 mmol/L (22.0-30.0); Glucose 79 mg/dl (74-100)
== END ==
PROVIDERS: Visit Provider Emergency Medicine
DX: M25.562 Pain in left knee (principal); M25.561 Pain in right knee
CPT/HCPCS: 36415; 80048

== ENCOUNTER 2019-10-26 20:56 | Emergency (ER) | payer MEDICARE, SELFPAY ==
[2019-10-26 20:58] VITALS: BP 162/84; PULSE 85; RESP 16; TEMP 36.8; O2SAT 95; BMI 43.7
--- NOTE | 2019-10-26 21:29 | XR_ITS ---
PROCEDURE: XR SHOULDER RT MIN 2V CLINICAL INDICATION: felt pop in arm Pain COMPARISON: [id number] VIEWS from 12/03/2015 FINDINGS: No fracture or dislocation. No lytic or blastic change. There is normal mineralization. There are mild osteoarthritic changes of the acromioclavicular joint and glenohumeral joint. Other findings:None. IMPRESSION: Mild osteoarthritis Dictated by: Toy Marie MD 10/27/2019 06:07 Toy Marie MD in [place] 10/27/2019 06:07
[2019-10-26 21:30] VITALS: BP 151/82; PULSE 85; RESP 17; O2SAT 95
[2019-10-26 22:00] VITALS: BP 154/80; PULSE 86; RESP 17; O2SAT 95
--- NOTE | 2019-10-26 22:39 | HMH.EDUPEXT ---
ED Disposition Clinical Impression: Shoulder injury Qualifiers: Encounter type: initial encounter Laterality: right Qualified Code(s): S49.91XA - Unspecified injury of right shoulder and upper arm, initial encounter Disposition: Home, Self-Care Condition on Discharge: Good Instructions: DI for Shoulder Sprain Additional Instructions: ice and call pcp for follow up hold nsaif while on prednisone Prescriptions: predniSONE [Prednisone 20mg Tab] 20 mg PO BID #10 tab Transmission Status: Pending to [facility] Referrals: Sidney Judge MD [Primary Care Provider] - - Critical Care Critical Care Time: No Attestation: On 10/26/19, the high probability of a clinically significant, sudden or life threatening deterioration of the following system(s) required my full and direct attention, intervention and personal management. The time I documented below is in addition to time spent performing reported procedures but includes the following listed in this critical care notation. Medical Decision Making - Medical Records Medical records reviewed: Yes: I reviewed the patient's medical records. - Jese Inquiry Pt receiving controlled substance: No Vital Signs: 10/26/19 20:58 10/26/19 21:30 10/26/19 22:00 Temperature 98.3 F Temperature Source Oral Pulse Rate [Left Radial] 85 85 86 Respiratory Rate 16 17 17 Blood Pressure [Right Arm] 162/84 H 151/82 H 154/80 H Blood Pressure Mean [Right Arm] 110 105 104 Blood Pressure Source [Right Arm] Automatic Cuff Automatic Cuff Automatic Cuff Blood Pressure Position [Right Arm] Sitting Supine Supine 02 Sat by Pulse Oximetry 95 95 95 Oxygen Delivery Method Room Air Room Air Room Air - Lab Data Lab results reviewed: Yes: I reviewed the patient's lab results. Orders (Tests/Meds): ORDERS Category Date Time Status XR shoulder RT min 2V Stat Exams 10/26/19 21:29 Taken - Radiology Data #1 Image(s): Shoulder Image Reviewed: Yes I reviewed the patient's radiology image Preliminary Findings: No Fracture Seen Upper Extremity HPI - General Chief Complaint: Extremity Injury, Upper Stated Complaint: right shoulder pain Time Seen by Provider: 10/26/19 21:45 Mode of Arrival: Ambulatory Source of Information: Patient, Spouse, Medical Record Limitations: No Limitations Description of Symptoms (Recalled from ER Triage Doc. by RN): pt stated he was moving a grocery cart at [facility] [employer] [employer] today when he felt a pop in his right shoulder. pt c/o pain when moving said shoulder. pt denied taking any medication for pain. - History of Present Illness HPI narrative: rt shoulder injury - popping and pain with rom - occurred at noon complaint: injury to: right, shoulder Onset (ago): hour(s) Other Extremity Injury: Right: shoulder Other injuries: none Handedness: right Place: other Exacerbating factors: movement of extremity Associated symptoms: denies other symptoms - Related Data Home Medications Medication Instructions Recorded Confirmed gabapentin 100 mg capsule 100 mg PO TID PRN 05/23/19 06/03/19 Previous Rx's Medication Instructions Recorded lisinopril 20 mg tablet 20 mg PO DAILY #90 tab 05/20/19 naproxen 500 mg tablet 500 mg PO BID #60 tab 05/20/19 meloxicam 15 mg tablet 15 mg PO DAILY #30 tab 08/28/19 predniSONE [Prednisone 20mg 20 mg PO BID #10 tab 10/26/19 Tab] Allergies Allergy/AdvReac Type Severity Reaction Status Date / Time morphine [MORPHINE] Allergy Severe HALLUCINATI Verified 06/03/19 10:27 ON [facility] History - Hepatitis A Screen Drug use history?: No High risk sexual behaviors?: No History of sexually transmitted infection?: No Currently employed?: No Childcare worker?: No Do you have indoor plumbing?: Yes Do you have electricity?: Yes Attestation statement:: This patient has been screened for Hepatitis A risk factors. I have reviewed the patient's past medical history: Yes Medical His
[2019-10-26 22:53] VITALS: BP 147/84; PULSE 81; RESP 16; TEMP 36.7; O2SAT 96
== END 2019-10-26 22:57 | disposition home or self-care (01) ==
PROVIDERS: Emergency Provider Emergency Medicine; PCP Emergency Medicine
DX: S49.91XA Unspecified injury of right shoulder and upper arm, initial encounter (principal); X50.0XXA Overexertion from strenuous movement or load, initial encounter; Y92.89 Other specified places as the place of occurrence of the external cause; F41.8 Other specified anxiety disorders; I10 Essential (primary) hypertension; F17.210 Nicotine dependence, cigarettes, uncomplicated
CPT/HCPCS: 73030; 99284

== ENCOUNTER 2020-02-04 13:57 | Outpatient (RCR) | payer MEDICARE, SELFPAY ==
--- NOTE | 2020-02-04 15:19 | HMH.PTOPEV ---
PT Outpatient Evaluation Rehab PT Outpatient Evaluation Start: 02/04/20 14:53 Freq: Status: Active Protocol: Document 02/04/20 14:53 PDESEROUX (Rec: 02/04/20 15:18 PDESEROUX [id number]) Electronically Signed By Khadar Rothman, PT 02/04/20 14:53 Outpatient Therapy Subjective History Subjective History Pt. is a 44 year old male who presents to Outpatient PT clinic w/ complaints of chronic and intermittent R shldr. P! of traumatic onset 4 months ago. Pt. reports he twisted his arm (RUE) behind him trying to put away a shopping cart at [employer] when he heard a pop. Pt. reports going to the ER after that where he was given steroids, stated not taking them. Pt. reports some symptom relief w/ injections. Recent diagnostic imaging(X-ray) negative for a fx., but positive for OA per pt. report . Pt. also reports an ache will shoot down his arm when it gets bad. Pt. denies any numbness/tingling into RUE. Current medications include Meloxicam and Lisinopril. PMH includes Hypertension, abdominal surgeries x 3, and LLE knee ATS sx. Chief Complaint Pain,Weakness Symptom Type Ache,Sharp,Dull,Shooting Symptoms Relieved By Ice,Prescription Meds Symptoms Aggravated By Prone Prior Functional Limitations None Current Functional Limitations Reaching,Lifting,Housework, Dressing,Sleeping,Recreation Activity Symptom Description Intermittent Level of pain today (0-10) 0 Pain scale - at its best (0-10) 0 Pain scale - at its worst (0-10) 6 Shoulder/Elbow Eval Shoulder Objective Measurements Palpation Tenderness tenderness shoulder exam standard right tenderness over the bicipital tendon right shoulder exam standard tenderness over the SA bursa shoulder right exam standard Shoulder Palpation Findings Tenderness Shoulder Palpation Overall Comment grade 3 +TTP to assessment above and supra/infraspinatus mm. Posture Shoulde
== END 2020-02-04 13:59 | disposition home or self-care (01) ==
LOC: PT 13:57
PROVIDERS: PCP Emergency Medicine; Visit Provider Nurse Practitioner Family
DX: S49.91XA Unspecified injury of right shoulder and upper arm, initial encounter (principal)
CPT/HCPCS: 97010; 97014; 97110; 97163; G0283

== ENCOUNTER 2020-03-25 15:01 | Emergency (ER) | payer MEDICARE, SELFPAY ==
[2020-03-25 15:03] VITALS: BP 160/81; PULSE 93; RESP 16; TEMP 36.8; O2SAT 100; BMI 47.5
--- NOTE | 2020-03-25 15:21 | HMH.EDUTC ---
[facility] [place] Disposition Clinical Impression: Sinusitis Qualifiers: Sinusitis location: unspecified location Chronicity: acute Recurrence: non-recurrent Qualified Code(s): J01.90 - Acute sinusitis, unspecified Acute bronchitis Qualifiers: Bronchitis organism: unspecified organism Qualified Code(s): J20.9 - Acute bronchitis, unspecified Disposition: Home, Self-Care Condition on Discharge: Good Instructions: DI for Sinusitis Additional Instructions: Drink plenty of fluids. Take tylenol or ibuprofen for pain or fever. Take the medications as directed. Follow up with your regular doctor. GO TO THE ER FOR ANY WORSENING SYMPTOMS Prescriptions: Amoxicillin/Potassium Clav [Augmentin 875-125 Tablet] 1 tab PO Q12H 10 Days #20 tab Transmission Status: Received by [facility] predniSONE [Prednisone 20mg Tab] 20 mg PO BID 4 Days #8 tab Transmission Status: Received by [facility] Referrals: Sidney Judge MD [Primary Care Provider] - Forms: Work/School Release Time of Disposition: 15:25 Medical Decision Making - Medical Records Medical records reviewed: No: I reviewed the patient's medical records. - Jese Inquiry Pt receiving controlled substance: No Vital Signs: 03/25/20 15:03 03/25/20 15:29 Temperature 98.3 F 98 F Temperature Source Oral Oral Pulse Rate 90 Pulse Rate [Right] 93 H Respiratory Rate 16 16 Blood Pressure 160/80 H Blood Pressure [Right Arm] 160/81 H Blood Pressure Mean [Right Arm] 107 Blood Pressure Source Automatic Cuff Blood Pressure Source [Right Arm] Automatic Cuff Blood Pressure Position Sitting Blood Pressure Position [Right Arm] Sitting 02 Sat by Pulse Oximetry 100 Oxygen Delivery Method Room Air Room Air [facility] [place] HPI - General Stated complaint: congestion Time Seen by Provider: 03/25/20 15:05 Mode of Arrival: Ambulatory Source of Information: Patient Limitations: No Limitations Description of Symptoms (Recalled from Triage Doc. by RN): pt c/o congestion and sinus headache for the past couple of days HEENT Symptoms (Recalled from RN notes): Yes Resp Symptoms (Recalled from RN notes): No Skin Symptoms (Recalled from RN notes): No MS Symptoms (Recalled from RN notes): No Functional Status (Recalled from RN notes): na - History of Present Illness Provider Complaint: He states that for the past 2 days he has had sinus congestion, chest congestion, and bilateral ear pain. He denies any fever/chills/body aches. He denies any known exposure to covid-19. He refuses a covid test today. - Related Data Previous Rx's Medication Instructions Recorded lisinopril 20 mg tablet 20 mg PO DAILY #90 tab 05/20/19 prednisone 20 mg tablet 20 mg PO BID 5 Days #10 tab 01/08/20 meloxicam 15 mg tablet 15 mg PO DAILY #30 tab 02/04/20 Amoxicillin/Potassium Clav 1 tab PO Q12H 10 Days #20 tab 03/25/20 [Augmentin 875-125 Tablet] predniSONE [Prednisone 20mg 20 mg PO BID 4 Days #8 tab 03/25/20 Tab] Allergies Allergy/AdvReac Type Severity Reaction Status Date / Time morphine [MORPHINE] Allergy Severe HALLUCINATI Verified 01/08/20 09:51 ON - Worker's Comp Is this a Worker's Comp case?: No [facility] History - Hepatitis A Screen Drug use history?: No High risk sexual behaviors?: No History of sexually transmitted infection?: No Currently employed?: No Childcare worker?: No Do you have indoor plumbing?: Yes Do you have electricity?: Yes Attestation statement:: This patient has been screened for Hepatitis A risk factors. I have reviewed the patient's past medical history: Yes Medical History: Reports:: Anxiety, Depression, Hypertension, MRSA, Peripheral Vascular Disease Denies:: Cancer, Diabetes Mellitus Type 1, Diabetes Mellitus Type 2 Other Medical History: Reports: Arthritis, Other Laterality Cases: Left: Arthroscopy Knee Other Surgeries: Yes: Hernia Repair Amputation: No Fractures: No - Social History Smoking S
[2020-03-25 15:29] VITALS: BP 160/80; PULSE 90; RESP 16; TEMP 36.6; O2SAT 98
== END 2020-03-25 15:30 | disposition home or self-care (01) ==
PROVIDERS: Emergency Provider Nurse Practitioner Family; PCP Emergency Medicine
DX: J01.90 Acute sinusitis, unspecified (principal); J20.9 Acute bronchitis, unspecified; I10 Essential (primary) hypertension; F41.8 Other specified anxiety disorders; F17.210 Nicotine dependence, cigarettes, uncomplicated; Z88.5 Allergy status to narcotic agent
CPT/HCPCS: G0463; 99202

== ENCOUNTER → 2020-11-01 12:13 | Outpatient (CLI) | payer MEDICARE, SELFPAY | PROVIDERS: PCP Emergency Medicine; Visit Provider Nurse Practitioner | DX: Z20.822 Contact with and (suspected) exposure to COVID-19 (principal) | CPT/HCPCS: C9803; U0003; U0005 ==

== ENCOUNTER → 2020-11-08 15:04 | Outpatient (CLI) | payer MEDICARE, SELFPAY | PROVIDERS: PCP Emergency Medicine; Visit Provider Nurse Practitioner | DX: Z20.822 Contact with and (suspected) exposure to COVID-19 (principal) | CPT/HCPCS: C9803; U0003; U0005 ==

== ENCOUNTER 2021-02-17 15:52 | Emergency (ER) | payer MEDICARE, SELFPAY ==
[2021-02-17 16:00] VITALS: BP 171/102; PULSE 91; RESP 21; TEMP 36.9; O2SAT 96; BMI 50.7
--- NOTE | 2021-02-17 16:25 | HMH.EDUTC ---
[facility] [place] Clinical Impression: Strep throat Disposition: Home, Self-Care Condition on Discharge: Good Instructions: Strep Throat, DI for Strep Throat, DI for COVID-19 (Suspected or Confirmed ) Additional Instructions: *Monitor Temp, Over the counter Motrin or Tylenol as directed/as needed Tylenol every 4 hours and Motrin every 6 hours (as long as your family doctor has told you that you can take it) for fever or pain. and straight to ER if unable to lower temp less than 101.0 after medication given *Warm salt water gargles may help to soothe the throat *Throat Lozenges *Warm fluids like tea with honey may help to soothe the throat *Sleep elevated *Humidifier/Vaporizer Follow up IMMEDIATELY for new or worsening symptoms or no Noticeable improvement over the next 48-72 hours. 911 for difficulty breathing or swallowing Your blood pressure was elevated make sure to follow up with your Family Doctor if it remains elevated You were tested for today for COVID19 your test result should be back in the next 24-48 hours, you may check your results on the [facility] My Health Portal if you have trouble logging on you can call support or you will get a call if your results are Positive You was given a handout with instructions for Self Quarantine and Self isolation for while you wait on test results and what to do if they are positive If you are positive the Health Dept will be contacting you also Make sure to take your Vitamins Vit. C Vit D and Zinc if you can take them Prescriptions: Benzonatate [Benzonatate 100mg cap] 100 mg PO Q8HP PRN #15 cap PRN Reason: Cough Transmission Status: Pending to [facility] predniSONE [Deltasone 10mg tablet] 10 mg PO BID 5 Days #10 tab Transmission Status: Pending to [facility] Azithromycin [Z-Edy 250mg Tab] 250 mg PO DIRECTED #6 tab Transmission Status: Pending to [facility] Referrals: Nat Carlton APRN [Primary Care Provider] - As needed Forms: Work/School Release Time of Disposition: 16:33 Medical Decision Making - Jese Inquiry Pt receiving controlled substance: No Jese was queried for this patient: No Vital Signs: 02/17/21 16:00 Temperature 98.4 F Temperature Source Oral Pulse Rate [Right Brachial] 91 H Respiratory Rate 21 Blood Pressure [Right Arm] 171/102 H Blood Pressure Mean [Right Arm] 125 Blood Pressure Source [Right Arm] Automatic Cuff Blood Pressure Position [Right Arm] Sitting 02 Sat by Pulse Oximetry 96 Oxygen Delivery Method Room Air - Lab Data Lab results reviewed: Yes: I reviewed the patient's lab results. Lab Results 02/17/21 16:12: Strep Scn Rapid Clinic Positive A Orders (Tests/Meds): ORDERS Category Date Time Status Covid-19 Nasal PCR ([facility]) Routine Lab 02/17/21 16:12 Received [facility] [place] HPI - General Stated complaint: sore throat,cough.SOB.LAIRD Time Seen by Provider: 02/17/21 16:25 Mode of Arrival: Ambulatory Source of Information: Patient Limitations: No Limitations Description of Symptoms (Recalled from Triage Doc. by RN): PATIENT C/O SORE THROAT, COUGH, AND DIFFICULTY BREATHING SINCE YESTERDAY HEENT Symptoms (Recalled from RN notes): Yes Resp Symptoms (Recalled from RN notes): Yes Skin Symptoms (Recalled from RN notes): No MS Symptoms (Recalled from RN notes): No Functional Status (Recalled from RN notes): WNL - History of Present Illness Provider Complaint: Patient state that he has not been feeling well for several days States that he has history of asthma State that he has been having sore throat, cough, burning in his throat when he is breathing and at times states that feels like his asthma is acting up State that he was worried that he may have strep throat, bronchitis or COVID so he wanted to get tested State that his cough is non-productive - Related Data Home Medications Medication Instructions Recorded Confirmed Meloxicam 15 mg PO DAILY 02/17/21 02/17/21
[2021-02-17 16:32] LABS: UTC Strep Screen (Rapid) Positive (Negative)
[2021-02-17 16:40] VITALS: BP 171/102; PULSE 91; RESP 21; TEMP 36.9; O2SAT 96
== END 2021-02-17 16:45 | disposition home or self-care (01) ==
PROVIDERS: Emergency Provider Nurse Practitioner; PCP Nurse Practitioner
DX: J02.0 Streptococcal pharyngitis (principal); Z20.822 Contact with and (suspected) exposure to COVID-19; I10 Essential (primary) hypertension; F41.8 Other specified anxiety disorders; F17.210 Nicotine dependence, cigarettes, uncomplicated
CPT/HCPCS: G0463; 87880; 99203; C9803; U0003; U0005

== ENCOUNTER → 2021-03-16 17:09 | Outpatient (CLI) | payer MEDICARE, SELFPAY | PROVIDERS: PCP Nurse Practitioner; Visit Provider Nurse Practitioner | DX: Z20.822 Contact with and (suspected) exposure to COVID-19 (principal) | CPT/HCPCS: C9803; U0003; U0005 ==

== ENCOUNTER 2021-03-25 20:19 | Emergency (ER) | payer MEDICARE, SELFPAY ==
[2021-03-25 20:20] VITALS: BP 131/92; PULSE 91; RESP 19; TEMP 37.2; O2SAT 97; BMI 50.0
--- NOTE | 2021-03-25 20:36 | HMH.EDUTC ---
[facility] [place] Disposition Clinical Impression: Bronchitis Sinusitis Qualifiers: Sinusitis location: unspecified location Chronicity: unspecified Qualified Code(s): J32.9 - Chronic sinusitis, unspecified Disposition: Home, Self-Care Condition on Discharge: Good Instructions: Sinusitis, DI for Sinusitis, Acute Bronchitis Additional Instructions: ? Start antibiotic today. Be sure to complete entire prescription even if feeling better ? Monitor temp. Tylenol every 4 hours as needed and / or ibuprofen every 6 hours as needed ( As long as your primary care physician has told you that it ok to take both. For fever/aches/pains ER if no less than 101 despite Tylenol or Motrin ? Humidifier/vaporizer or hot steamy shower ? Inhaler every 4-6 hours as needed like we discussed. If unsure how to use it, ask pharmacist to demonstrate how. Should help open airways and improve cough, wheezing, and shortness of breath ? Mucinex for your cough and chest congestion. Be sure to drink lots of water. *Start steroid today. Helps with inflammation therefore, cough and wheezing. Follow directions on the package. Reviewed side effects. Patient reports taking them before. Follow up IMMEDIATELY for new or worsening of symptoms OR no noticeable improvement over the next 48-72 hours. 911 immediately for any life threatening symptoms such as chest pain or difficulty breathing Prescriptions: Albuterol Sulfate [Proventil-HFA 90mcg/puff Inh] 1 - 2 puffs IH Q4HP PRN #1 each PRN Reason: Shortness Of Breath Transmission Status: Pending to [facility] guaiFENesin [Mucinex 600mg tablet] 600 mg PO Q12HP PRN #20 tab PRN Reason: Congestion Transmission Status: Pending to [facility] Doxycycline Monohydrate [Doxycycline [place] 100mg Tab] 100 mg PO BID 7 Days #14 tab Transmission Status: Pending to [facility] Referrals: Nat Carlton APRN [Primary Care Provider] - As needed Forms: Work/School Release Medical Decision Making - Jese Inquiry Pt receiving controlled substance: No Jese was queried for this patient: No Vital Signs: 03/25/21 20:20 Temperature 98.9 F Temperature Source Oral Pulse Rate [Right Brachial] 91 H Respiratory Rate 19 Blood Pressure [Right Arm] 131/92 H Blood Pressure Mean [Right Arm] 105 Blood Pressure Source [Right Arm] Automatic Cuff Blood Pressure Position [Right Arm] Sitting 02 Sat by Pulse Oximetry 97 Oxygen Delivery Method Room Air Orders (Tests/Meds): ORDERS Category Date Time Status Covid-19 Nasal PCR ([facility]) Routine Lab 03/25/21 20:34 Ordered [facility] UTC HPI - General Stated complaint: cough,back pain Time Seen by Provider: 03/25/21 20:36 Mode of Arrival: Ambulatory Source of Information: Patient Limitations: No Limitations Description of Symptoms (Recalled from Triage Doc. by RN): PATIENT C/O COUGH AND BODY ACHES SINCE YESTERDAY. REQUESTING COVID TEST HEENT Symptoms (Recalled from RN notes): No Resp Symptoms (Recalled from RN notes): Yes Skin Symptoms (Recalled from RN notes): No MS Symptoms (Recalled from RN notes): No Functional Status (Recalled from RN notes): WNL - History of Present Illness Provider Complaint: Patient states that he has been having cough, chest congestion and body aches States that it has continued to get worse since yesterday States that his daughter and had COVID last week State that he is also needing a refill on his inhaler he is out of it and something for the cough - Related Data Home Medications Medication Instructions Recorded Confirmed Meloxicam 15 mg PO DAILY 02/17/21 03/25/21 lisinopriL [Lisinopril] 20 mg PO DAILY 02/17/21 03/25/21 Previous Rx's Medication Instructions Recorded Albuterol Sulfate [Proventil-HFA 1 - 2 puffs IH Q4HP PRN #1 each 03/25/21 90mcg/puff Inh] Doxycycline Monohydrate 100 mg PO BID 7 Days #14 tab 03/25/21 [Doxycycline [place] 100mg Tab] guaiFENesin [Mucinex 600mg tablet
[2021-03-25 20:40] VITALS: BP 131/92; PULSE 91; RESP 19; TEMP 37.2; O2SAT 97
== END 2021-03-25 20:49 | disposition home or self-care (01) ==
PROVIDERS: Emergency Provider Physician Assistant; PCP Nurse Practitioner
DX: J20.9 Acute bronchitis, unspecified (principal); J32.9 Chronic sinusitis, unspecified; U07.1 COVID-19
CPT/HCPCS: G0463; 99202; 99212; 99213; C9803; U0003; U0005

== ENCOUNTER 2021-04-03 14:23 | Emergency (ER) | payer MEDICARE, SELFPAY ==
[2021-04-03 14:34] VITALS: BP 137/94; PULSE 84; RESP 18; TEMP 36.6; O2SAT 98; BMI 50.0
--- NOTE | 2021-04-03 14:40 | XR_ITS ---
PROCEDURE INFORMATION: Exam: XR Left Foot Exam date and time: 04/03/2021 2:40 PM Age: 45 years old Clinical indication: Patient HX: Very large patient fell, left foot pain. ; Additional info: Fall TECHNIQUE: Imaging protocol: XR Left foot. Views: 3 or more views. COMPARISON: CR XR ANKLE LT MIN 3V 04/03/2021 2:49 PM FINDINGS: Bones/joints: Normal. Soft tissues: Normal. Other findings: There is no evidence of acute fracture.There is no evidence of malalignment or dislocation. IMPRESSION: There is no evidence of acute fracture.There is no evidence of malalignment or dislocation.
--- NOTE | 2021-04-03 14:40 | XR_ITS ---
PROCEDURE INFORMATION: Exam: XR Left Femur Exam date and time: 04/03/2021 2:40 PM Age: 45 years old Clinical indication: Thigh; Patient HX: Very large patient fell, left femur pain. ; Additional info: Fall TECHNIQUE: Imaging protocol: XR Left femur. Views: 2 views. COMPARISON: CR XR KNEE LT 4V 06/03/2019 9:57 AM FINDINGS: Bones/joints: Degenerative changes in the knee Soft tissues: Unremarkable. Other findings: There is no evidence of acute fracture.There is no evidence of malalignment or dislocation. IMPRESSION: There is no evidence of acute fracture.There is no evidence of malalignment or dislocation.
--- NOTE | 2021-04-03 14:40 | XR_ITS ---
PROCEDURE INFORMATION: Exam: XR Left Knee Exam date and time: 04/03/2021 2:40 PM Age: 45 years old Clinical indication: Patient HX: Very large patient fell, left knee pain. ; Additional info: Fall TECHNIQUE: Imaging protocol: XR Left knee. Views: 3 views. COMPARISON: CR XR KNEE LT 4V 06/03/2019 9:57 AM FINDINGS: Bones/joints: Mild Tricompartmental joint space narrowing and osteophyte formation consistent with degenerative changes. Soft tissues: Normal. Other findings: There is no evidence of acute fracture.There is no evidence of malalignment or dislocation. IMPRESSION: 1. Mild Tricompartmental joint space narrowing and osteophyte formation consistent with degenerative changes. 2. There is no evidence of acute fracture.There is no evidence of malalignment or dislocation.
--- NOTE | 2021-04-03 14:40 | XR_ITS ---
PROCEDURE INFORMATION: Exam: XR Left Tibia and Fibula Exam date and time: 04/03/2021 2:40 PM Age: 45 years old Clinical indication: Patient HX: Very large patient who fell and is having left lower leg pain. ; Additional info: Fall TECHNIQUE: Imaging protocol: XR Left tibia and fibula. Views: 2 views. COMPARISON: CR ANKL3 ANKLE-LT-3 VIEWS 11/02/2014 10:19 PM FINDINGS: Bones/joints: Degenerative changes in the knee Soft tissues: Normal. Other findings: There is no evidence of acute fracture.There is no evidence of malalignment or dislocation. IMPRESSION: There is no evidence of acute fracture.There is no evidence of malalignment or dislocation.
--- NOTE | 2021-04-03 14:40 | XR_ITS ---
PROCEDURE INFORMATION: Exam: XR Left Ankle Exam date and time: 04/03/2021 2:40 PM Age: 45 years old Clinical indication: Patient HX: Very large patient fell, left ankle pain. ; Additional info: Fall TECHNIQUE: Imaging protocol: XR Left ankle. Views: 3 or more views. COMPARISON: CR ANKL3 ANKLE-LT-3 VIEWS 11/02/2014 10:19 PM FINDINGS: Bones/joints: No acute fracture Soft tissues: Bimalleolar soft tissue swelling. Other findings: There is no evidence of acute fracture.There is no evidence of malalignment or dislocation. IMPRESSION: 1. Bimalleolar soft tissue swelling. 2. There is no evidence of acute fracture.There is no evidence of malalignment or dislocation.
[2021-04-03 16:00] VITALS: PULSE 84; RESP 18; O2SAT 98; BMI 49.6
--- NOTE | 2021-04-03 16:25 | HMH.EDUTC ---
[facility] [place] Clinical Impression: Fall Qualifiers: Encounter type: initial encounter Qualified Code(s): W19.XXXA - Unspecified fall, initial encounter Left knee sprain Qualifiers: Encounter type: initial encounter Involved ligament of knee: unspecified ligament Qualified Code(s): S83.92XA - Sprain of unspecified site of left knee, initial encounter Left knee pain Qualifiers: Chronicity: acute Qualified Code(s): M25.562 - Pain in left knee Disposition: Home, Self-Care Condition on Discharge: Good Instructions: How to Use Crutches, DI for Knee Sprain, How to Use a Knee Immobilizer Additional Instructions: Rest the extremity, apply ice for 15 minutes as tolerated three or four times per day,, Elevate the extremity as tolerated while you are resting. Take ibuprofen for pain. I sent in a prescription to your pharmacy. Follow up with Dr. Cabrera (orthopedics). I put in a referral but you need to call his office and schedule an appointment. Follow up with your regular doctor. GO TO THE ER FOR ANY WORSENING SYMPTOMS Prescriptions: Ibuprofen [Ibuprofen 800mg Tablet] 800 mg PO Q8HP PRN #30 tab PRN Reason: Moderate Pain Transmission Status: Received by [id number] Referrals: Nat Carlton APRN [Primary Care Provider] - Antwan Cabrera MD [Staff Physician] - Time of Disposition: 17:29 Medical Decision Making - Medical Records Medical records reviewed: No: I reviewed the patient's medical records. - Jese Inquiry Pt receiving controlled substance: No Vital Signs: 04/03/21 14:34 04/03/21 16:00 04/03/21 17:37 Temperature 98 F 98 F Temperature Source Oral Pulse Rate 84 Pulse Rate [Radial] 84 84 Respiratory Rate 18 18 18 Blood Pressure 137/94 H Blood Pressure [Right Arm] 137/94 H Blood Pressure Mean [Right Arm] 108 02 Sat by Pulse Oximetry 98 98 Oxygen Delivery Method Room Air [facility] [place] - General Stated complaint: lt knee/foot AO fall 04/02 Time Seen by Provider: 04/03/21 16:26 Mode of Arrival: Wheelchair Source of Information: Patient Limitations: No Limitations Description of Symptoms (Recalled from Triage Doc. by RN): pt states he fell last night and is now having pain from his L femur down to his toes. primarily affecting his knee. HEENT Symptoms (Recalled from RN notes): No Resp Symptoms (Recalled from RN notes): No Skin Symptoms (Recalled from RN notes): No MS Symptoms (Recalled from RN notes): Yes Functional Status (Recalled from RN notes): wnl - History of Present Illness Provider Complaint: He fell last night and came down on his right knee. Since then he has had right knee pain. He has also had swelling and tenderness of his left ankle. - Related Data Home Medications Medication Instructions Recorded Confirmed Meloxicam 15 mg PO DAILY 02/17/21 03/25/21 lisinopriL [Lisinopril] 20 mg PO DAILY 02/17/21 03/25/21 Previous Rx's Medication Instructions Recorded Albuterol Sulfate [Proventil-HFA 1 - 2 puffs IH Q4HP PRN #1 each 03/25/21 90mcg/puff Inh] Doxycycline Monohydrate 100 mg PO BID 7 Days #14 tab 03/25/21 [Doxycycline [place] 100mg Tab] guaiFENesin [Mucinex 600mg tablet] 600 mg PO Q12HP PRN #20 tab 03/25/21 Ibuprofen [Ibuprofen 800mg 800 mg PO Q8HP PRN #30 tab 04/03/21 Tablet] Allergies Allergy/AdvReac Type Severity Reaction Status Date / Time morphine [MORPHINE] Allergy Severe HALLUCINATI Verified 01/08/20 09:51 ON - Worker's Comp Is this a Worker's Comp case?: No [facility] History - Hepatitis A Screen Drug use history?: No High risk sexual behaviors?: No History of sexually transmitted infection?: No Currently employed?: No Childcare worker?: No Do you have indoor plumbing?: Yes Do you have electricity?: Yes Attestation statement:: This patient has been screened for Hepatitis A risk factors. I have reviewed the patient's past medical history: Yes Medical History: Reports:: Anxiety, Depre
[2021-04-03 17:37] VITALS: BP 137/94; PULSE 84; RESP 18; TEMP 36.6
== END 2021-04-03 17:43 | disposition home or self-care (01) ==
PROVIDERS: Emergency Provider Nurse Practitioner Family; PCP Nurse Practitioner
DX: S83.92XA Sprain of unspecified site of left knee, initial encounter (principal); W01.0XXA Fall on same level from slipping, tripping and stumbling without subsequent striking against object, initial encounter
CPT/HCPCS: G0463; 73552; 73562; 73590; 73610; 73630; 99202

== ENCOUNTER 2021-11-29 17:25 | Emergency (ER) | payer MEDICARE, SELFPAY ==
[2021-11-29 17:46] VITALS: BP 151/94; PULSE 91; RESP 20; TEMP 36.8; O2SAT 98; BMI 56.2
--- NOTE | 2021-11-29 17:52 | EXP.UTC ---
Discharge Plan Disposition Patient Disposition: Home, Self-Care Condition: Good Prescriptions Prescriptions: New prednisone [prednisone] 20 mg tablet 20 mg PO BID 5 Days Qty: 10 0RF amoxicillin-pot clavulanate 875-125 mg Tablet 1 tab PO Q12H Qty: 20 0RF guaifenesin [Mucinex] 600 mg tablet extended release 12hr 600 mg PO BID PRN (Reason: cough) Qty: 20 0RF No Action meloxicam 15 MG tablet 15 mg PO DAILY Rx Instructions: TAKE ONE TABLET BY MOUTH ONCE A DAY doxycycline monohydrate 100 MG tablet 100 mg PO BID 7 Days Qty: 14 0RF albuterol sulfate 200 PUFFS HFA aerosol inhaler 1 - 2 puffs IH Q4HP PRN (Reason: Shortness Of Breath) Qty: 1 0RF guaifenesin 600 MG tablet extended release 12hr 600 mg PO Q12HP PRN (Reason: Congestion) Qty: 20 0RF ibuprofen 800 MG tablet 800 mg PO Q8HP PRN (Reason: Moderate Pain) Qty: 30 0RF duloxetine 60 mg capsule,delayed release(DR/EC) 60 mg PO DAILY lisinopril 20 mg tablet See Rx Instructions .ROUTE .COMPLEX Rx Instructions: TAKE ONE TABLET BY MOUTH ONCE A DAY patient needs an appt before anymore refills Referrals Follow up/Referrals: Nat Carlton APRN [Primary Care Provider] - See instructions Activity Restrictions/Add. Instructions Additional Instructions/Restrictions: Start antibiotic today. Be sure to complete entire prescription even if feeling better Monitor temp. Tylenol every 4 hours as needed and / or ibuprofen every 6 hours as needed ( As long as your primary care physician has told you that it ok to take both. For fever/aches/pains ER if no less than 101 despite Tylenol or Motrin Humidifier/vaporizer or hot steamy shower Inhaler every 4-6 hours as needed like we discussed. If unsure how to use it, ask pharmacist to demonstrate how. Should help open airways and improve cough, wheezing, and shortness of breath Mucinex during for your cough and congestion. Be sure to drink lots of water. *Start steroid today. Helps with inflammation therefore, cough and wheezing. Follow directions on the package. Reviewed side effects. Patient reports taking them before. Follow up IMMEDIATELY for new or worsening of symptoms OR no noticeable improvement over the next 48-72 hours. 911 immediately for any life threatening symptoms such as chest pain or difficulty breathing Clinical Impressions Clinical Impression: Sinusitis, Bronchitis Instructions Patient Instructions: DI for Sinusitis, Sinusitis, Acute Bronchitis Discharge ED Provider: Grecia Moore [facility] [place] General Stated complaint: Head congestion, SOB Cough Mode of Arrival: Ambulatory Source of Information: Patient Limitations: No Limitations Time Seen by Provider: 11/29/21 17:53 Description of Symptoms (Recalled from Triage Doc. by RN): pt comes in with c/o sinus congestion, productive cough, chest congestion since sunday. HEENT Symptoms (Recalled from RN notes): Yes Resp Symptoms (Recalled from RN notes): Yes Skin Symptoms (Recalled from RN notes): No MS Symptoms (Recalled from RN notes): No Functional Status (Recalled from RN notes): n/a History of Present Illness Provider Complaint: Patient states that he has been having cough, sinus pain and pressure and feeling like it is moving into his chest States that at times he is coughing up mucous on and off State that feels like he does when he gets bronchitis Related Data Home Medications Medication Instructions Recorded Confirmed meloxicam 15 mg tablet 15 mg PO DAILY ANTI-INFLAMMATORY 02/17/21 11/29/21 duloxetine 60 mg capsule,delayed 60 mg PO DAILY Anxiety 11/29/21 11/29/21 release lisinopril 20 mg tablet See Rx Instructions .Route 11/29/21 11/29/21 .COMPLEX High blood pressure Previous Rx's Medication Instructions Recorded albuterol sulfate 90 mcg/actuation 1 - 2 puffs IH Q4HP PRN Shortness 03/25/21 aerosol inhaler Of Breath #1 ea do
[2021-11-29 18:17] VITALS: BP 141/91; PULSE 91; RESP 19; TEMP 36.6; O2SAT 98
== END 2021-11-29 18:17 | disposition home or self-care (01) ==
PROVIDERS: Emergency Provider Nurse Practitioner; PCP Nurse Practitioner
DX: J40 Bronchitis, not specified as acute or chronic (principal); J32.9 Chronic sinusitis, unspecified
CPT/HCPCS: 99212; G0463

== ENCOUNTER 2021-12-19 11:10 | Emergency (ER) | payer MEDICARE, SELFPAY ==
--- NOTE | 2021-12-19 14:13 | EXP.UTC ---
Discharge Plan Disposition Patient Disposition: Home, Self-Care Condition: Good Prescriptions Prescriptions: New doxycycline hyclate 100 mg capsule 100 mg PO BID Qty: 14 0RF methylprednisolone [Medrol (Edy)] 4 mg tablets,dose pack See Rx Instructions .Route .COMPLEX 6 Days Qty: 21 0RF Rx Instructions: taper pack; No Action meloxicam 15 MG tablet 15 mg PO DAILY Rx Instructions: TAKE ONE TABLET BY MOUTH ONCE A DAY doxycycline monohydrate 100 MG tablet 100 mg PO BID 7 Days Qty: 14 0RF albuterol sulfate 200 PUFFS HFA aerosol inhaler 1 - 2 puffs IH Q4HP PRN (Reason: Shortness Of Breath) Qty: 1 0RF guaifenesin 600 MG tablet extended release 12hr 600 mg PO Q12HP PRN (Reason: Congestion) Qty: 20 0RF ibuprofen 800 MG tablet 800 mg PO Q8HP PRN (Reason: Moderate Pain) Qty: 30 0RF duloxetine 60 mg capsule,delayed release(DR/EC) 60 mg PO DAILY lisinopril 20 mg tablet See Rx Instructions .ROUTE .COMPLEX Rx Instructions: TAKE ONE TABLET BY MOUTH ONCE A DAY patient needs an appt before anymore refills prednisone [prednisone] 20 mg tablet 20 mg PO BID 5 Days Qty: 10 0RF amoxicillin-pot clavulanate 875-125 mg Tablet 1 tab PO Q12H Qty: 20 0RF guaifenesin [Mucinex] 600 mg tablet extended release 12hr 600 mg PO BID PRN (Reason: cough) Qty: 20 0RF Referrals Follow up/Referrals: Nat Carlton APRN [Primary Care Provider] - See instructions Activity Restrictions/Add. Instructions Additional Instructions/Restrictions: *Monitor Temp, Over the counter Motrin or Tylenol as directed/as needed Tylenol every 4 hours and Motrin every 6 hours (as long as your family doctor has told you that you can take it) for fever or pain. and straight to ER if unable to lower temp less than 101.0 after medication given *Warm salt water gargles may help to soothe the throat *Throat Lozenges? *Warm fluids like tea with honey may help to soothe the throat? *Sleep elevated *Humidifier/Vaporizer *Flonase 2 sprays in each nostril daily but be aware that it may take 2-3 days before you notice improvement *Bromfed may cause drowsiness. Know how it effects you (your child) before driving, caring for small child, or sending your child to school. Not other antihistamines/allergy medications while taking bromfed Your throat swab was sent for culture. Those results are typically sent to your primary care. Be sure to follow up in 2-3 days with your family doctor/primary care physician if no improvement so they can review those result and treat if necessary. If you don?t have a primary care doctor, I recommend you get one but in the mean time, you will have to return to a walk in clinic Follow up IMMEDIATELY for new or worsening symptoms or no Noticeable improvement over the next 48-72 hours. 911 for difficulty breathing or swallowing Clinical Impressions Clinical Impression: Sinusitis Discharge ED Provider: Grecia Moore [facility] [place] HPI General Stated complaint: Congestion,Cough Time Seen by Provider: 12/19/21 14:13 History of Present Illness Provider Complaint: Patient states that he has been having sinus pain and pressure, pain in both ears, and cough States that feels like it does when he has a bad sinus infection State that he wanted to come in and get it treated before it moved into his chest area Related Data Home Medications Medication Instructions Recorded Confirmed meloxicam 15 mg tablet 15 mg PO DAILY ANTI-INFLAMMATORY 02/17/21 11/29/21 duloxetine 60 mg capsule,delayed 60 mg PO DAILY Anxiety 11/29/21 11/29/21 release lisinopril 20 mg tablet See Rx Instructions .Route 11/29/21 11/29/21 .COMPLEX High blood pressure Previous Rx's Medication Instructions Recorded albuterol sulfate 90 mcg/actuation 1 - 2 puffs IH Q4HP PRN Shortness 03/25/21 aerosol inhaler Of Breath #1 ea doxycycline monohydrate 100 mg 100 mg PO BID 7 days #1
[2021-12-19 14:15] VITALS: BP 159/89; PULSE 93; RESP 16; TEMP 36.8; O2SAT 97; BMI 55.6
--- NOTE | 2021-12-19 14:46 | EXP.UTC ---
Discharge Plan Disposition Patient Disposition: Home, Self-Care Condition: Good Prescriptions Prescriptions: New doxycycline hyclate 100 mg capsule 100 mg PO BID Qty: 14 0RF methylprednisolone [Medrol (Edy)] 4 mg tablets,dose pack See Rx Instructions .Route .COMPLEX 6 Days Qty: 21 0RF Rx Instructions: taper pack; No Action meloxicam 15 MG tablet 15 mg PO DAILY Rx Instructions: TAKE ONE TABLET BY MOUTH ONCE A DAY doxycycline monohydrate 100 MG tablet 100 mg PO BID 7 Days Qty: 14 0RF albuterol sulfate 200 PUFFS HFA aerosol inhaler 1 - 2 puffs IH Q4HP PRN (Reason: Shortness Of Breath) Qty: 1 0RF guaifenesin 600 MG tablet extended release 12hr 600 mg PO Q12HP PRN (Reason: Congestion) Qty: 20 0RF ibuprofen 800 MG tablet 800 mg PO Q8HP PRN (Reason: Moderate Pain) Qty: 30 0RF duloxetine 60 mg capsule,delayed release(DR/EC) 60 mg PO DAILY lisinopril 20 mg tablet See Rx Instructions .ROUTE .COMPLEX Rx Instructions: TAKE ONE TABLET BY MOUTH ONCE A DAY patient needs an appt before anymore refills prednisone [prednisone] 20 mg tablet 20 mg PO BID 5 Days Qty: 10 0RF amoxicillin-pot clavulanate 875-125 mg Tablet 1 tab PO Q12H Qty: 20 0RF guaifenesin [Mucinex] 600 mg tablet extended release 12hr 600 mg PO BID PRN (Reason: cough) Qty: 20 0RF Referrals Follow up/Referrals: Nat Carlton APRN [Primary Care Provider] - See instructions Activity Restrictions/Add. Instructions Additional Instructions/Restrictions: *Monitor Temp, Over the counter Motrin or Tylenol as directed/as needed Tylenol every 4 hours and Motrin every 6 hours (as long as your family doctor has told you that you can take it) for fever or pain. and straight to ER if unable to lower temp less than 101.0 after medication given *Warm salt water gargles may help to soothe the throat *Throat Lozenges? *Warm fluids like tea with honey may help to soothe the throat? *Sleep elevated *Humidifier/Vaporizer *Flonase 2 sprays in each nostril daily but be aware that it may take 2-3 days before you notice improvement *Bromfed may cause drowsiness. Know how it effects you (your child) before driving, caring for small child, or sending your child to school. Not other antihistamines/allergy medications while taking bromfed Your throat swab was sent for culture. Those results are typically sent to your primary care. Be sure to follow up in 2-3 days with your family doctor/primary care physician if no improvement so they can review those result and treat if necessary. If you don?t have a primary care doctor, I recommend you get one but in the mean time, you will have to return to a walk in clinic Follow up IMMEDIATELY for new or worsening symptoms or no Noticeable improvement over the next 48-72 hours. 911 for difficulty breathing or swallowing Clinical Impressions Clinical Impression: Sinusitis Qualifiers: Sinusitis location: unspecified location Chronicity: unspecified Qualified Code(s): J32.9 - Chronic sinusitis, unspecified [place] ED [place] [facility] [place] General Stated complaint: Congestion,Cough Mode of Arrival: Ambulatory Source of Information: Patient Limitations: No Limitations Time Seen by Provider: 12/19/21 14:13 Description of Symptoms (Recalled from Triage Doc. by RN): pt comes in with c/o congestion, mucus, cough. symptoms began sunday HEENT Symptoms (Recalled from RN notes): Yes Resp Symptoms (Recalled from RN notes): Yes Skin Symptoms (Recalled from RN notes): No MS Symptoms (Recalled from RN notes): No Functional Status (Recalled from RN notes): n/a Related Data Home Medications Medication Instructions Recorded Confirmed meloxicam 15 mg tablet 15 mg PO DAILY ANTI-INFLAMMATORY 02/17/21 11/29/21 duloxetine 60 mg capsule,delayed 60 mg PO DAILY Anxiety 11/29/21 11/29/21 release lisinopril 20 mg tablet See Rx Instruc
[2021-12-19 14:51] VITALS: BP 159/89; PULSE 93; RESP 16; TEMP 36.8
== END 2021-12-19 14:52 | disposition home or self-care (01) ==
PROVIDERS: Emergency Provider Nurse Practitioner; PCP Nurse Practitioner
DX: H92.03 Otalgia, bilateral (principal); J02.9 Acute pharyngitis, unspecified; R06.02 Shortness of breath; R09.81 Nasal congestion; R05.9 Cough, unspecified; R51.9 Headache, unspecified; F17.210 Nicotine dependence, cigarettes, uncomplicated; Z79.1 Long term (current) use of non-steroidal anti-inflammatories (NSAID); Z79.51 Long term (current) use of inhaled steroids; Z79.52 Long term (current) use of systemic steroids; Z79.899 Other long term (current) drug therapy; Z88.0 Allergy status to penicillin; Z88.5 Allergy status to narcotic agent
CPT/HCPCS: 99213; G0463

== ENCOUNTER 2022-02-28 17:02 | Emergency (ER) | payer MEDICARE, SELFPAY ==
--- NOTE | 2022-02-28 17:44 | EXP.UTC ---
Discharge Plan Disposition Patient Disposition: Home, Self-Care Condition: Good Prescriptions Prescriptions: New benzonatate [benzonatate] 100 mg capsule 100 mg PO TIDP PRN (Reason: Cough) Qty: 30 0RF methylprednisolone 4 mg Tablets,Dose Pack 4 mg PO DIRECTED Qty: 21 0RF amoxicillin-pot clavulanate 875-125 mg Tablet 1 tab PO Q12H Qty: 20 0RF No Action albuterol sulfate 200 PUFFS HFA aerosol inhaler 1 - 2 puffs IH Q4HP PRN (Reason: Shortness Of Breath) Qty: 1 0RF duloxetine 60 mg capsule,delayed release(DR/EC) 60 mg PO DAILY diclofenac sodium 75 mg tablet,delayed release (DR/EC) 75 mg PO BID PRN (Reason: .) lisinopril 20 mg tablet See Rx Instructions .ROUTE .COMPLEX Rx Instructions: TAKE ONE TABLET BY MOUTH ONCE A DAY Referrals Follow up/Referrals: Nat Carlton APRN [Primary Care Provider] - See instructions Activity Restrictions/Add. Instructions Additional Instructions/Restrictions: Drink plenty of fluids. Take tylenol or ibuprofen for pain or fever. Take the medications as directed. Follow up with your regular doctor. GO TO THE ER FOR ANY WORSENING SYMPTOMS Clinical Impressions Clinical Impression: Sinusitis, Bronchitis Stand Alone Forms Stand Alone Forms: Work/School Release Instructions Patient Instructions: DI for Sinusitis, DI for Acute Bronchitis Discharge ED Provider: Andrew Souza [facility] General Stated complaint: congestion Time Seen by Provider: 02/28/22 17:44 History of Present Illness Provider Complaint: He states that for the past 1 week he has had sinus and chest congestion. He denies fever. Related Data Home Medications Medication Instructions Recorded Confirmed duloxetine 60 mg capsule,delayed 60 mg PO DAILY Anxiety 11/29/21 02/28/22 release diclofenac sodium 75 mg 75 mg PO BID PRN . 02/28/22 02/28/22 tablet,delayed release lisinopril 20 mg tablet See Rx Instructions .Route 02/28/22 02/28/22 .COMPLEX blood pressure Previous Rx's Medication Instructions Recorded albuterol sulfate 90 mcg/actuation 1 - 2 puffs IH Q4HP PRN Shortness 03/25/21 aerosol inhaler Of Breath #1 ea amoxicillin 875 mg-potassium 1 tab PO Q12H #20 tabs 02/28/22 clavulanate 125 mg tablet benzonatate 100 mg capsule 100 mg PO TIDP PRN Cough #30 caps 02/28/22 methylprednisolone 4 mg tablets in 4 mg PO DIRECTED #21 tabs 02/28/22 a dose pack Allergies Allergy/AdvReac Type Severity Reaction Status Date / Time morphine [MORPHINE] Allergy Severe HALLUCINATI Verified 02/28/22 18:09 ON [facility] Disclaimer: The information contained in this section may have been updated after the patient was seen, as this information can be updated by other users. 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 [employer] current occupational exposures/hazards: No caffeine: Yes ROS Obtained: Yes All systems reviewed & no additional complaints except as documented Constitutional Constitutional: Reports poor appetite Eyes Eyes: Reports system reviewed and no additional complaints, except as documented ENT Ears, Nose, Mouth, and Throat: Reports as per HPI Cardiovascular Cardiovascular: Reports system reviewed and no additional complaints, except as documented and Denies chest pain Respiratory Respiratory: Denies shortness of breath, Denies chest congestion, Reports cough, Denies stridor and Denies wheezing Gastrointestinal Gastrointestingal: Reports system reviewed and no additional complaints, except as documented; Denies abdominal pain, diarrhea or vomiting Musculoskeletal Mu
[2022-02-28 17:45] VITALS: RESP 20; TEMP 37.3; O2SAT 94; BMI 34.3
[2022-02-28 18:09] LABS: UTC Strep Screen (Rapid) Negative (Negative)
[2022-02-28 18:10] LABS: UTC Influenza A Antigen Negative (Negative); UTC Influenza B Antigen Negative (Negative)
[2022-02-28 18:33] VITALS: BP 154/82; PULSE 92; RESP 20; TEMP 36.5; O2SAT 96
== END 2022-02-28 18:32 | disposition home or self-care (01) ==
PROVIDERS: Emergency Provider Nurse Practitioner Family; PCP Nurse Practitioner
DX: J40 Bronchitis, not specified as acute or chronic (principal); J32.9 Chronic sinusitis, unspecified
CPT/HCPCS: 87804; 87880; 99212; 99214; G0463

== ENCOUNTER 2022-07-13 17:15 | Emergency (ER) | payer MEDICARE, SELFPAY ==
[2022-07-13 17:16] VITALS: BP 136/78; PULSE 113; RESP 18; TEMP 36.9; O2SAT 96; BMI 56.2
--- NOTE | 2022-07-13 17:41 | EXP.UTC ---
Discharge Plan Disposition Patient Disposition: Home, Self-Care Condition: Good Prescriptions Prescriptions: New benzonatate [benzonatate] 100 mg capsule 100 mg PO TIDP PRN (Reason: Cough) Qty: 30 0RF methylprednisolone 4 mg Tablets,Dose Pack 4 mg PO DIRECTED Qty: 21 0RF amoxicillin-pot clavulanate 875-125 mg Tablet 1 tab PO Q12H Qty: 20 0RF No Action lisinopril 20 mg tablet See Rx Instructions .ROUTE .COMPLEX Qty: 30 3RF Dose Instruction: TAKE ONE TABLET BY MOUTH ONCE A DAY Rx Instructions: TAKE ONE TABLET BY MOUTH ONCE A DAY albuterol sulfate 200 PUFFS HFA aerosol inhaler 1 - 2 puffs IH Q4HP PRN (Reason: Shortness Of Breath) Qty: 1 0RF duloxetine 60 mg capsule,delayed release(DR/EC) 60 mg PO DAILY diclofenac sodium 75 mg tablet,delayed release (DR/EC) 75 mg PO BID PRN (Reason: .) benzonatate [benzonatate] 100 mg capsule 100 mg PO TIDP PRN (Reason: Cough) Qty: 30 0RF methylprednisolone 4 mg Tablets,Dose Pack 4 mg PO DIRECTED Qty: 21 0RF amoxicillin-pot clavulanate 875-125 mg Tablet 1 tab PO Q12H Qty: 20 0RF Referrals Follow up/Referrals: Nat Carlton APRN [Primary Care Provider] - See instructions Activity Restrictions/Add. Instructions Additional Instructions/Restrictions: Drink plenty of fluids. Take tylenol or ibuprofen for pain or fever. Take the medications as directed. Follow up with your regular doctor. GO TO THE ER FOR ANY WORSENING SYMPTOMS Clinical Impressions Clinical Impression: Acute sinusitis Stand Alone Forms Stand Alone Forms: Work/School Release Instructions Patient Instructions: Sinusitis, DI for Sinusitis Discharge ED Provider: Andrew Souza [facility] [place] General Stated complaint: alvin, stuffy nose Mode of Arrival: Ambulatory Source of Information: Patient Limitations: No Limitations Time Seen by Provider: 07/13/22 17:41 Description of Symptoms (Recalled from Triage Doc. by RN): Patient reports cough and congestion for 2-3 days. HEENT Symptoms (Recalled from RN notes): Yes Resp Symptoms (Recalled from RN notes): No Skin Symptoms (Recalled from RN notes): No MS Symptoms (Recalled from RN notes): No Functional Status (Recalled from RN notes): wnl History of Present Illness Provider Complaint: He states that for the past 2 to 3 days he has had a worsening sinus congestion and cough. Related Data Home Medications Medication Instructions Recorded Confirmed duloxetine 60 mg capsule,delayed 60 mg PO DAILY Anxiety 11/29/21 02/28/22 release diclofenac sodium 75 mg 75 mg PO BID PRN . 02/28/22 02/28/22 tablet,delayed release Previous Rx's Medication Instructions Recorded albuterol sulfate 90 mcg/actuation 1 - 2 puffs IH Q4HP PRN Shortness 03/25/21 aerosol inhaler Of Breath #1 ea amoxicillin 875 mg-potassium 1 tab PO Q12H #20 tabs 02/28/22 clavulanate 125 mg tablet benzonatate 100 mg capsule 100 mg PO TIDP PRN Cough #30 caps 02/28/22 methylprednisolone 4 mg tablets in 4 mg PO DIRECTED #21 tabs 02/28/22 a dose pack lisinopril 20 mg tablet See Rx Instructions .Route 03/30/22 .COMPLEX #30 tabs amoxicillin 875 mg-potassium 1 tab PO Q12H #20 tabs 07/13/22 clavulanate 125 mg tablet benzonatate 100 mg capsule 100 mg PO TIDP PRN Cough #30 caps 07/13/22 methylprednisolone 4 mg tablets in 4 mg PO DIRECTED #21 tabs 07/13/22 a dose pack Allergies Allergy/AdvReac Type Severity Reaction Status Date / Time morphine [MORPHINE] Allergy Severe HALLUCINATI Verified 02/28/22 18:09 ON Worker's Comp Is this a Worker's Comp case?: No [facility] Disclaimer: The information contained in this section may have been updated after the patient was seen, as this information can be updated by other users. Social History Smoking Status: Current every day smoker tobacco type: cigarettes packs per day: 1 second hand exposure: Ye
[2022-07-13 18:12] VITALS: BP 136/78; PULSE 113; RESP 18; TEMP 36.9; O2SAT 96
== END 2022-07-13 18:13 | disposition home or self-care (01) ==
PROVIDERS: Emergency Provider Nurse Practitioner Family; PCP Nurse Practitioner
DX: J01.90 Acute sinusitis, unspecified (principal); F17.210 Nicotine dependence, cigarettes, uncomplicated; E66.01 Morbid (severe) obesity due to excess calories; Z68.43 Body mass index [BMI] 50.0-59.9, adult
CPT/HCPCS: 99212; 99214; G0463

== ENCOUNTER 2023-06-18 18:23 | Emergency (ER) | payer MEDICARE, SELFPAY ==
[2023-06-18 18:24] VITALS: BP 131/89; PULSE 115; RESP 18; TEMP 36.7; O2SAT 93; BMI 53.7
--- NOTE | 2023-06-18 18:26 | ECG_ITS ---
APPROVED REPORT Exam: Resting ECG HR:108 bpm ECG Measurements Heart Rate 108 AXES IL 120 P -15 QRSd 95 QRS -4 QT 338 T 120 QTc 401 Conclusion SINUS TACHYCARDIA INCOMPLETE RIGHT BUNDLE BRANCH BLOCK [90+ ms QRS DURATION, TERMINAL R IN V1/V2, 40+ ms S IN I/aVL/V4/V5/V6] ABNORMAL QRS-T ANGLE [QRS-T AXIS DIFFERENCE > 60] ABNORMAL ECG UNCONFIRMED REPORT Electronically signed by : KELSI KONG, 06/18/2023 23:50:11
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
--- NOTE | 2023-06-18 18:56 | CT_ITS ---
PROCEDURE INFORMATION: Exam: CT Cervical Spine Without Contrast Exam date and time: 06/18/2023 8:23 PM Age: 47 years old Clinical indication: Pain; Additional info: Trauma, critical injury suspected TECHNIQUE: Imaging protocol: Computed tomography of the cervical spine without contrast. Radiation optimization: All CT scans at this facility use at least one of these dose optimization techniques: automated exposure control; mA and/or kV adjustment per patient size (includes targeted exams where dose is matched to clinical indication); or iterative reconstruction. COMPARISON: CT HEAD/BRAIN WO CON 06/18/2023 8:21 PM FINDINGS: Bones: No cervical spine fracture or listhesis. Debx-oc-cryghsed multilevel degenerative disc disease. Mild right C5-C6 and C6-C7 and moderate left C6-C7 neural foraminal stenosis. Moderate spinal canal stenosis at C6-C7. Lungs: Lung apices are normal. Soft tissues: Unremarkable. IMPRESSION: No cervical spine fracture or listhesis.
--- NOTE | 2023-06-18 18:56 | CT_ITS ---
PROCEDURE INFORMATION: Exam: CT Lumbar Spine Without Contrast Exam date and time: 06/18/2023 8:28 PM Age: 47 years old Clinical indication: Pain; Additional info: Trauma, critical injury suspected TECHNIQUE: Imaging protocol: Computed tomography of the lumbar spine without contrast. Total images: 339 Radiation optimization: All CT scans at this facility use at least one of these dose optimization techniques: automated exposure control; mA and/or kV adjustment per patient size (includes targeted exams where dose is matched to clinical indication); or iterative reconstruction. COMPARISON: SPLUMBWO MR lumbar spine wo con 02/28/2018 8:05 AM FINDINGS: Bones/joints: There are 5 non rib-bearing lumbar vertebral segments. Lumbar vertebral body height and alignment is preserved. Facet joints are appropriately aligned. Posterior elements are intact. Moderate degenerative disc disease L4-L5 and L5-S1 with vacuum disc phenomena and posterior projecting disc osteophyte complex. Mild loss of disc space remainder of lumbar levels. Bridging endplate osteophyte formation at all lumbar levels. Moderate degenerate facet joint spondylosis greatest at L3 through S1 bilaterally. Spinal canal contents are near completely obscured by attenuation artifact. Degenerative changes bilateral SI joints. Good portions of the sacrum are unremarkable. No concerning bone lesions. Kidneys and ureters: Occluded portions of both kidneys are unremarkable. Vasculature: Abdominal aorta is normal in caliber. Soft tissues: Routine dependent subcutaneous edema posterior to the lumbar spine. No paraspinal mass or fluid collection. Other findings: Considerable attenuation artifact referral to large body habitus, limits detail. IMPRESSION: 1. No acute lumbar fracture or traumatic subluxation. 2. Moderate degenerative disc disease L4-L5 and L5-S1. 3. Spinal canal contents are completely obscured by attenuation artifact.
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
--- NOTE | 2023-06-18 18:56 | CT_ITS ---
PROCEDURE INFORMATION: Exam: CT Thoracic Spine Without Contrast Exam date and time: 06/18/2023 8:25 PM Age: 47 years old Clinical indication: Pain; Additional info: Trauma, critical injury suspected TECHNIQUE: Imaging protocol: Computed tomography of the thoracic spine without contrast. Total images: 358 Radiation optimization: All CT scans at this facility use at least one of these dose optimization techniques: automated exposure control; mA and/or kV adjustment per patient size (includes targeted exams where dose is matched to clinical indication); or iterative reconstruction. COMPARISON: CT CERVICAL SPINE WO CON 06/18/2023 8:23 PM FINDINGS: Bones/joints: Thoracic vertebral body height and alignment is maintained. Moderate degenerative disc disease throughout the thoracic spine, greatest at mid lower levels, including loss of disc space, vacuum disc phenomena, and prominent bridging endplate osteophyte formation at multiple consecutive levels. Additionally, posterior projecting disc osteophyte complex into the spinal canal at T6-7, T7-T8, and T8-T9 levels resulting in mild acquired spinal canal stenosis. Moderate multilevel degenerative set joint spondylosis. Facet joints are appropriately aligned. Posterior elements appear intact. No concerning bone lesions. Costovertebral junctions are preserved. Included bilateral posterior ribs are intact. Soft tissues: Unremarkable. Lymph nodes: Borderline enlarged mediastinal lymph nodes up to 10 mm in short axis. Lungs: Included lung parenchyma is clear with minor dependent atelectasis. Pleural spaces: Bilateral pleural lipomatosis. No pleural effusion. Thyroid: Approximate 2 cm left thyroid nodule. Other findings: Attenuation artifact from large body habitus compromises detail. IMPRESSION: 1. No acute thoracic spine fracture or traumatic subluxation. 2. Moderate multilevel degenerative disc disease. 3. Mild multilevel acquired spinal canal stenosis. 4. 2 cm left thyroid nodule. Recommend follow-up nonemergent thyroid ultrasound. 5. Borderline enlarged mediastinal lymph nodes up to 10 mm in short axis.
--- NOTE | 2023-06-18 18:56 | XR_ITS ---
PROCEDURE INFORMATION: Exam: XR Right Tibia and Fibula Exam date and time: 06/18/2023 7:01 PM Age: 47 years old Clinical indication: Injury or trauma; Other: Flipped mower; Blunt trauma; Lower leg; Right; Additional info: Tractor rollover TECHNIQUE: Imaging protocol: Radiologic exam of the right tibia and fibula. Views: 2 views. COMPARISON: CR XR ANKLE RT MIN 3V 06/18/2023 7:01 PM FINDINGS: Bones/joints: No fracture or dislocation. Mild/moderate medial and lateral compartment and severe patellofemoral compartment degenerative joint disease in the knee. Soft tissues: Normal. IMPRESSION: No acute findings.
--- NOTE | 2023-06-18 18:56 | CT_ITS ---
PROCEDURE INFORMATION: Exam: CT Head Without Contrast Exam date and time: 06/18/2023 8:21 PM Age: 47 years old Clinical indication: Pain; Additional info: Trauma, critical injury suspected TECHNIQUE: Imaging protocol: Computed tomography of the head without contrast. Radiation optimization: All CT scans at this facility use at least one of these dose optimization techniques: automated exposure control; mA and/or kV adjustment per patient size (includes targeted exams where dose is matched to clinical indication); or iterative reconstruction. COMPARISON: No relevant prior studies available. FINDINGS: Brain: Normal. No hemorrhage. Unremarkable white matter. No mass effect. Cerebral ventricles: No ventriculomegaly. Paranasal sinuses: Visualized sinuses are unremarkable. No fluid levels. Mastoid air cells: Visualized mastoid air cells are well aerated. Bones: Unremarkable. No acute fracture. Soft tissues: Unremarkable. IMPRESSION: No acute intracranial abnormality.
--- NOTE | 2023-06-18 18:56 | XR_ITS ---
PROCEDURE INFORMATION: Exam: XR Left Ankle Exam date and time: 06/18/2023 7:01 PM Age: 47 years old Clinical indication: Injury or trauma; Other: Flipped mower; Blunt trauma; Ankle; Left; Additional info: Tractor rollover TECHNIQUE: Imaging protocol: Radiologic exam of the left ankle. Views: 3 or more views. COMPARISON: CR XR ANKLE LT MIN 3V 04/03/2021 2:49 PM FINDINGS: Bones/joints: No fracture or dislocation. Minimal dorsal osteophytic spurring of the talar neck. Small posterior and plantar surface calcaneal bone spurs. Soft tissues: Medial and lateral soft tissue swelling. IMPRESSION: Medial and lateral soft tissue swelling. No evidence of a fracture.
--- NOTE | 2023-06-18 18:56 | XR_ITS ---
PROCEDURE INFORMATION: Exam: XR Left Tibia and Fibula Exam date and time: 06/18/2023 7:01 PM Age: 47 years old Clinical indication: Injury or trauma; Other: Flipped mower; Blunt trauma; Lower leg; Left; Additional info: Tractor rollover TECHNIQUE: Imaging protocol: Radiologic exam of the left tibia and fibula. Views: 2 views. COMPARISON: CR XR TIBIA FIBULA LT 2V 04/03/2021 2:47 PM FINDINGS: Bones/joints: No fracture or dislocation. Mild/moderate medial and lateral compartment and severe patellofemoral compartment degenerative joint disease in the knee. 21.0 cm ossified structures posterior to the knee joint may be intra-articular osseous loose bodies. Soft tissues: See Bones/joints finding. IMPRESSION: No acute findings.
--- NOTE | 2023-06-18 18:56 | CT_ITS ---
PROCEDURE INFORMATION: Exam: CTA Head With Contrast, Arteriography Exam date and time: 06/18/2023 8:37 PM Age: 47 years old Clinical indication: Injury or trauma; Patient HX: Jodi hernandez; Additional info: Trauma, critical injury suspected TECHNIQUE: Imaging protocol: Computed tomographic angiography of the head with contrast. Exam focused on the arteries. 3D rendering (Not supervised by radiologist): MIP and/or 3D reconstructed images were created by the technologist. Radiation optimization: All CT scans at this facility use at least one of these dose optimization techniques: automated exposure control; mA and/or kV adjustment per patient size (includes targeted exams where dose is matched to clinical indication); or iterative reconstruction. Contrast material: ISOVUE 370; Contrast volume: 100 ml; Contrast route: INTRAVENOUS (IV); COMPARISON: CT HEAD/BRAIN WO CON 06/18/2023 8:21 PM FINDINGS: ANTERIOR CIRCULATION: Right internal carotid artery: Intracranial segment is patent with no significant stenosis. No aneurysm. Right middle cerebral artery: No occlusion or significant stenosis. No aneurysm. Right anterior cerebral artery: No occlusion or significant stenosis. No aneurysm. Left internal carotid artery: Atherosclerosis and mild stenosis of the cavernous left internal carotid artery. No large vessel occlusion. No visualized aneurysm. Left middle cerebral artery: No occlusion or significant stenosis. No aneurysm. Left anterior cerebral artery: No occlusion or significant stenosis. No aneurysm. POSTERIOR CIRCULATION: Right vertebral artery: A dominant right vertebral artery is identified. No significant stenosis or occlusion of the right vertebral artery. Left vertebral artery: The left vertebral artery is asymmetrically smaller in caliber, without significant stenosis or occlusion of the V4 segment. Basilar artery: No occlusion or significant stenosis. No aneurysm. Right posterior cerebral artery: No occlusion or significant stenosis. No aneurysm. Left posterior cerebral artery: Persistence of the origin of the left [employer], without significant stenosis or occlusion. No visualized aneurysm. Brain: No definite mass, mass effect, or midline shift. Refer to the head CT report from the same day. Cerebral ventricles: No ventriculomegaly. Bones/joints: No acute fracture. Soft tissues: No significant swelling of the scalp. Other findings: Prominence of adenoids within the posterior nasopharynx. IMPRESSION: 1. No large vessel arterial occlusion on this CTA head. 2. Atherosclerosis and mild stenosis of the cavernous left internal carotid artery. 3. A dominant right vertebral artery is identified. 4. Additional findings described above.
--- NOTE | 2023-06-18 18:56 | XR_ITS ---
PROCEDURE INFORMATION: Exam: XR Right Foot Exam date and time: 06/18/2023 7:01 PM Age: 47 years old Clinical indication: Injury or trauma; Other: Flipped mower; Blunt trauma; Foot; Right; Additional info: Tractor rollover TECHNIQUE: Imaging protocol: Radiologic exam of the right foot. Views: 1 or 2 views. COMPARISON: CR XR ANKLE RT MIN 3V 06/18/2023 7:01 PM FINDINGS: Bones/joints: No fracture or dislocation. No significant arthropathy. Small posterior and plantar surface calcaneal bone spurs. Soft tissues: Normal. IMPRESSION: No acute findings.
--- NOTE | 2023-06-18 18:56 | XR_ITS ---
PROCEDURE INFORMATION: Exam: XR Left Foot Exam date and time: 06/18/2023 7:01 PM Age: 47 years old Clinical indication: Injury or trauma; Other: Flipped mower; Blunt trauma; Foot; Left; Additional info: Tractor rollover TECHNIQUE: Imaging protocol: Radiologic exam of the left foot. Views: 1 or 2 views. COMPARISON: CR XR FOOT LT MIN 3V 04/03/2021 2:50 PM FINDINGS: Bones/joints: No fracture or dislocation. Small posterior and plantar surface calcaneal bone spurs. Soft tissues: Normal. IMPRESSION: No acute findings.
--- NOTE | 2023-06-18 18:57 | CT_ITS ---
PROCEDURE INFORMATION: Exam: CT Pelvis Without Contrast; Skeletal Exam date and time: 06/18/2023 8:30 PM Age: 47 years old Clinical indication: Pain; Additional info: Trauma, critical injury suspected TECHNIQUE: Imaging protocol: Computed tomography of the pelvis without contrast. Exam focused on the skeleton. Total images: 999 Radiation optimization: All CT scans at this facility use at least one of these dose optimization techniques: automated exposure control; mA and/or kV adjustment per patient size (includes targeted exams where dose is matched to clinical indication); or iterative reconstruction. COMPARISON: CT ABDOMEN PELVIS WO CON 02/18/2019 2:28 AM FINDINGS: Intestine: Mild colonic diverticulosis. Appendix: Normal appendix. Reproductive: Nonenlarged prostate. Bones/joints: No acute pelvic fracture. No widening of the pubic symphysis or sacroiliac joints. Mild degenerative changes bilateral SI joints. Mild degenerative changes bilateral hips. Bilateral femoral head and neck contours are preserved. Proximal femurs are intact. No concerning bone lesions or pathologic calcifications. Lumbar spine findings described on separate report. Sacrococcygeal alignment is preserved. Soft tissues: No paraspinal mass or fluid collection. Routine dependent subcutaneous edema posterior to the lumbosacral spine. Incompletely included and evaluated left lower quadrant abdominal wall hernia. Hernia contains a portion of the colon. Tiny fat containing bilateral inguinal hernias. Other findings: Attenuation artifact from large body habitus compromises evaluation. IMPRESSION: 1. No acute pelvic or hip fracture. 2. Additional chronic and incidental findings.
[2023-06-18 19:00] VITALS: BP 142/79; PULSE 88; O2SAT 94
[2023-06-18] MEDS: LACTATED RINGERS 1000ML 1,000 ML 999 ML IV (19:26)
[2023-06-18] MEDS: KETOROLAC 30MG/ML VIAL 15 MG IV (19:26)
[2023-06-18] MEDS: ACETAMINOPHEN 1,000MG/100ML VIAL 1000 MG IV (19:26)
[2023-06-18 19:31] VITALS: BP 103/63; PULSE 100; O2SAT 94
[2023-06-18 19:43] LABS: Basophils # 0.1 K/mm3 (0-0.2); Basophils % 0.9 % (0.1-2.0); Eosinophils # 0.2 K/mm3 (0.0-0.4); Eosinophils % 1.5 % (0.1-12.0); Hematocrit 46.3 % (42.0-52.0); Hemoglobin 14.9 g/dL (14.1-18.0); Lymphocytes # 2.6 K/mm3 (0.7-4.5); Lymphocytes % 18.3 % (10-50); Mean Corpuscular HGB Conc 32.1 g/dL (31.8-35.4); Mean Corpuscular Hemoglobin 28.4 pg (27.0-31.2); Mean Corpuscular Volume 88.3 fl (80-94); Mean Platelet Volume 8.2 fl (7.4-10.4); Monocytes # 0.8 K/mm3 (0.1-1.0); Monocytes % 5.8 % (1.7-9.3); Neutrophils # 10.3 K/mm3 (1.8-7.8); Neutrophils % 73.5 % (37.0-80.0); Platelet Count 260 K/mm3 (142-424); Red Blood Count 5.24 M/mm3 (4.60-6.20); Red Cell Distribution Width 15.9 % (11.5-17.5)
[2023-06-18 19:57] LABS: Blood Urea Nitrogen 21 mg/dl (9-20); Calcium 9.6 mg/dl (8.4-10.2); Carbon Dioxide 31 mmol/L (22.0-30.0); Creatinine Clearance Estimated 76 mL/min (50-200); Estimated Glomerular Filt Rate 54 ml/min (>60); GFR (African American) 65 ML/MIN (>60); Glucose 93 mg/dl (74-100); Potassium 4.2 mmoL/L (3.5-5.1); Sodium 142 mmol/L (136-145)
[2023-06-18 20:00] VITALS: BP 125/75; PULSE 75; O2SAT 96
[2023-06-18 20:00] LABS: Prothrombin Time 10.8 seconds (10.1-12.5)
[2023-06-18 20:04] LABS: Anion Gap 12.2 mEq/L (5-15); Chloride 103 mmol/L (98-107)
--- NOTE | 2023-06-18 20:04 | CT_ITS ---
PROCEDURE INFORMATION: Exam: CTA Neck With Contrast Exam date and time: 06/18/2023 8:37 PM Age: 47 years old Clinical indication: Injury or trauma; Additional info: Trauma; Flipped mower TECHNIQUE: Imaging protocol: Computed tomographic angiography of the neck with contrast. Exam focused on the cervical segments of the vasculature. 3D rendering (Not supervised by radiologist): MIP and/or 3D reconstructed images were created by the technologist. Radiation optimization: All CT scans at this facility use at least one of these dose optimization techniques: automated exposure control; mA and/or kV adjustment per patient size (includes targeted exams where dose is matched to clinical indication); or iterative reconstruction. Contrast material: ISOVUE 370; Contrast volume: 100 ml; Contrast route: INTRAVENOUS (IV); COMPARISON: CT CERVICAL SPINE WO CON 06/18/2023 8:23 PM FINDINGS: Right common carotid artery: Artifact limits evaluation of the right common carotid artery, without occlusion. Right internal carotid artery: Mild irregular contour of the proximal to mid right internal carotid artery. No stenosis using NASCET criteria. Right external carotid artery: No occlusion or significant stenosis. Left common carotid artery: Atherosclerosis of the left carotid bifurcation is identified, without significant stenosis of the distal left common carotid artery. Artifact limits evaluation of the left common carotid artery, without occlusion. Left internal carotid artery: Mild increased tortuosity of the left internal carotid artery. No stenosis using NASCET criteria. No visualized dissection. Left external carotid artery: No occlusion or significant stenosis. Right vertebral artery: There is suboptimal evaluation of V1 and proximal V2 segments of the bilateral vertebral arteries due to artifact and technical limitations. Flow-limiting pathology cannot be excluded. The remaining extracranial vertebral artery segments are patent bilaterally. Left vertebral artery: See above. 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 Pulmonary arteries: There is suboptimal evaluation of the pulmonary arteries due to artifact and poor enhancement. Other arteries: There is suboptimal evaluation of the subclavian arteries due to artifact. Pharynx: Mild symmetric prominence of the palatine tonsils. There is asymmetric decreased aeration of the left pyriform sinus, which is of indeterminate clinical significance. Prominence of adenoids within the posterior nasopharynx. Lymph nodes: A nonspecific right intraparotid lymph node is visualized measuring 7-8 mm. There is a tiny left intraparotid lymph node. Soft tissues: No significant soft tissue swelling. Bones/joints: Straightening of the lordotic curvature of the cervical spine. Degenerative changes are visualized involving the cervical and upper thoracic spine. Varying degrees of spinal canal stenoses and neural foraminal narrowing are visualized at cervical levels. Artifact limits evaluation of the spinal canal. Mild rotation of C1 on C2. Thymus: There is isodensity within the anterior mediastinum, likely representing thymic tissue. IMPRESSION: 1. No occlusion of the extracranial carotid arteries bilaterally on this limited study. 2. The aortic arch is ectatic measuring 3.2 cm in diameter. 3. There is suboptimal evaluation of V1 and proximal V2 segments of the bilateral vertebral arteries due to artifact and technical limitations. Flow-limiting pathology cannot be excluded. Due to these limitations, if further evaluation is clinically indicated, MRA of the neck is recommended with/without contrast. 4. There is asymmetric decreased aeration of the left pyriform sinus, which is of indeterminate clinical significance. 5. Additional findings described above. REFERENCES: NASCET CRITERIA. The degree of stenosis in the cervical segment of the internal carotid artery is based on NASCET criteria. Normal is no stenosis. Mild is less than 50% stenosis. Moderate is 50-69% stenosis. Severe is 70% to 99% stenosis. Total occlusion is no detectable patent lumen.
[2023-06-18] MEDS: HYDROMORPHONE 2MG/ML SYRINGE 0.5 MG IV (20:10)
[2023-06-18] MEDS: SODIUM CHLORIDE 0.9% 10ML SYR (RAD ONLY) 10 ML IV (20:44)
[2023-06-18] MEDS: 0.9 % SODIUM CHLORIDE 50 ML VIAL IV (20:44)
[2023-06-18] MEDS: IOPAMIDOL-370 (76%);100ML BOTTLE 100 ML IV (20:44)
[2023-06-18 21:00] VITALS: BP 128/67; PULSE 85; O2SAT 94
[2023-06-18 21:35] VITALS: BP 128/67; PULSE 82; RESP 18; TEMP 36.8
== END 2023-06-18 21:42 | disposition home or self-care (01) ==
PROVIDERS: Physician Assistant; Emergency Provider Emergency Medicine; PCP Nurse Practitioner
DX: S93.602A Unspecified sprain of left foot, initial encounter (principal); R00.0 Tachycardia, unspecified; S39.012A Strain of muscle, fascia and tendon of lower back, initial encounter; S80.12XA Contusion of left lower leg, initial encounter; S20.229A Contusion of unspecified back wall of thorax, initial encounter; M79.661 Pain in right lower leg; M79.662 Pain in left lower leg; V84.5XXA Driver of special agricultural vehicle injured in nontraffic accident, initial encounter
CPT/HCPCS: 70450; 70496; 70498; 72125; 72128; 72131; 72192; 73590; 73610; 73620; 80048; 85025; 85610; 93005; 96361; 96374; 96375; 99285; J0131; Q9967

== ENCOUNTER 2023-09-26 09:00 | Outpatient (POV) | payer MEDICARE, SELFPAY ==
[2023-09-26 09:12] VITALS: BP 166/89; PULSE 82; RESP 18; O2SAT 93; BMI 50.0
--- NOTE | 2023-09-26 09:40 | A.OFFVIS_ITS ---
HPI Data of Consult Patient: new to practice Consult date: 09/26/23 Requesting Physician: Cailin Dawn APRN Primary Care Provider: Nat Carlton APRN Consult Narrative Reason for consult: Low back pain, left leg pain History of present illness: Mr. Cruz is a 48 year old male who presents today as a new patient. Patient is a referral from Beatriz Carlton's office. Today he rates his pain a 7 out of 10. Patient states his pain is all throughout his low back with radiating numbness and tingling into his left lower extremity. Patient does state that he has had the leg symptoms for years however they did become more intense after a accident where he flipped his riding lawnmower inmate. Patient has had multiple scans due to the worsening pain. Patient has tried oral medications such as Tylenol along with anti-inflammatories and other conservative treatments with minimal improvement. Patient states he has had chiropractor therapy in the past and does continue to do at home stretching exercise over the last 6 weeks with minimal relief. Patient denies any prior surgery history or back injections however does state that he has bad knees and has had injections in these joints. Patient denies any recent physical therapy. His Jese has been reviewed and is appropriate. CC: Cailin Dawn APRN [facility] Disclaimer: The information contained in this section may have been updated after the patient was seen, as this information can be updated by other users. Medical History (Updated 09/26/23 @ 09:43 by Cailin Dawn APRN) Vitamin D deficiency HLD (hyperlipidemia) Prediabetes Reflux esophagitis Asthma HTN (hypertension) Anxiety Depression ANSON (obstructive sleep apnea) Osteoarthritis Carotid artery disease Aortic ectasia Family History (Updated 09/26/23 @ 09:25 by Shayy Mckeon RN) Other Unknown family medical history Social History (Updated 09/26/23 @ 09:26 by Shayy Mckeon RN) Smoking Status: Unknown if ever smoked second hand exposure: Yes alcohol intake: never substance use type: marijuana current occupational status: unemployed Travel in the last 8 weeks: None household members: none housing: apartment 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 @ [employer] current occupational exposures/hazards: No caffeine: Yes Review of Systems Review of Systems Review of systems:: pertinent systems reviewed and negative unless documented below Review of systems (narrative): Review of Systems: General: No recent weight changes, no fever, no sleep disturbances Respiratory: No cough, no shortness of air, no recurring pulmonary infections Cardiovascular/peripheral vascular: No chest pain, no palpitations, no edema, no shortness of breath Gastrointestinal: No new onset incontinence, normal bowel movements reported Genitourinary: No new onset incontinence Musculoskeletal: Low back pain, left leg pain Psychiatric: [Normal mood/affect] Neurological: [Denies weakness in extremities], [denies balance issues] Meds Home Medications and Allergies Home Medications ?Medication ?Instructions ?Recorded ?Confirmed ?Type albuterol sulfate 90 mcg/actuation 1 - 2 puffs IH Q4HP PRN Shortness 03/25/21 09/26/23 Rx aerosol inhaler Of Breath #1 ea duloxetine 60 mg capsule,delayed 60 mg PO DAILY Anxiety 11/29/21 09/26/23 History release diclofenac sodium 75 mg 75 mg PO BID PRN . 02/28/22 09/26/23 History tablet,delayed release lisinopril 20 mg tablet See Rx Instructions .Route 03/30/22 09/26/23 Rx .COMPLEX #30 tabs New Prescriptions to Start Prescriptions: Allergies Allergy/AdvReac Type Severity Reaction Status Date / Time morphine [MORPHINE] Allergy Severe HALLUCINATI Verified 02/28/22 18:09 ON Objective Vital signs: Pulse Resp BP Pulse Ox O2 Del Method 82 18 166/89 H 93 L Room Air 09/26/23 09:12 09/26/23 09:12 09/26/23 09:12 09/26/23 09:12 09/26/23 09:12 Narrative: Physical Exam: General: Alert and oriented x3, no acute distress, pleasant and cooperative Lungs: Respirations even and unlabored, symmetrical chest expansion Eyes: PERRL Musculoskeletal: Flexion and extension of lumbar [spine] somewhat guarded secondary to pain, [antalgic gait noted] Neurological: Speech clear, no gross sensory deficit Additional findings Additional findings: FINDINGS: Bones/joints: There are 5 non rib-bearing lumbar vertebral segments. Lumbar vertebral body height and alignment is preserved. Facet joints are appropriately aligned. Posterior elements are intact. Moderate degenerative disc disease L4-L5 and L5-S1 with vacuum disc phenomena and posterior projecting disc osteophyte complex. Mild loss of disc space remainder of lumbar levels. Bridging endplate osteophyte formation at all lumbar levels. Moderate degenerate facet joint spondylosis greatest at L3 through S1 bilaterally. Spinal canal contents are near completely obscured by attenuation artifact. Degenerative changes bilateral SI joints. Good portions of the sacrum are unremarkable. No concerning bone lesions. Kidneys and ureters: Occluded portions of both kidneys are unremarkable. Vasculature: Abdominal aorta is normal in caliber. Soft tissues: Routine dependent subcutaneous edema posterior to the lumbar spine. No paraspinal mass or fluid collection. Other findings: Considerable attenuation artifact referral to large body habitus, limits detail. IMPRESSION: 1. No acute lumbar fracture or traumatic subluxation. 2. Moderate degenerative disc disease L4-L5 and L5-S1. 3. Spinal canal contents are completely obscured by attenuation artifact. 20: Assessment and Plan *Assessment and plan (1) Degenerative disc disease, lumbar: Status: Acute Category: Medical Code(s): M51.36 - Other intervertebral disc degeneration, lumbar region (2) Lumbar radiculopathy: Status: Acute Category: Medical Code(s): M54.16 - Radiculopathy, lumbar region Plan Patient is experiencing worsening pain throughout his low back and left leg with numbness and tingling. Patient did have limited range of motion of his lumbar spine. Have discussed with patient that he may benefit from lumbar epidural steroid injection. Risk and benefits were discussed with patient and he would like to proceed forward with this plan of care. Patient has tried and failed conservative therapy including continued at home exercising and stretching for longer than 6 weeks. We will submit to insurance for the lumbar epidural steroid injection L4-L5 under fluoroscopy. Patient has been instructed to contact the clinic with any concerns before the next appointment. Dr. Raza has reviewed this note and agrees with this plan of care. This note was dictated using voice recognition software and make contain errors or omissions. All injections are used with Lidocaine or Bupivacaine and Depo Medrol.
== END 2023-09-26 23:59 | disposition home or self-care (01) ==
LOC: SC.PAIN 09:01
PROVIDERS: PCP Nurse Practitioner; Visit Provider Nurse Practitioner Family
DX: M51.16 Intervertebral disc disorders with radiculopathy, lumbar region (principal); F12.90 Cannabis use, unspecified, uncomplicated
CPT/HCPCS: 99202; G0463

== ENCOUNTER 2023-10-09 08:07 | Day surgery (SDC) | payer MEDICARE, SELFPAY ==
[2023-10-09 08:28] VITALS: BP 158/93; PULSE 81; RESP 16; TEMP 36.6; O2SAT 95; BMI 50.0
[2023-10-09] MEDS: methylPREDNISolone ACETATE 80MG/ML VIAL 80 MG (08:43)
[2023-10-09 08:57] VITALS: BP 183/96; PULSE 73; RESP 16; O2SAT 96
--- NOTE | 2023-10-09 09:31 | P.PCN_ITS ---
Procedure Date: 10/09/23 Time: 08:30 Anesthesiologist:: Khadar Fischer CRNA Complications:: None Pre-procedure Diagnosis:: Degenerative disc lumbar spine multilevels. Lumbar radiculopathy. Multilevel disc bulge lumbar spine. Post-procedure Diagnosis:: Same. Indications for Procedure:: Patient is a very pleasant 48-year-old male who comes our clinic today for lumbar epidural steroid injection at L4-5 level. Patient describes low lumbar back pain as constant, dull, aching. Patient also reports bilateral hip and leg radicular symptoms. Patient rates his pain 7/10. Procedure Details:: Procedure: Lumbar epidural steroid injection under fluoroscopy Informed consent was obtained and the risks and benefits of the procedure were explained to the patient. The patient was taken to the procedure room and noninvasive monitors placed, including noninvasive blood pressure cuff and pulse oximeter. The back was viewed using C-arm Fluoroscopy and prepped using Chloraprep as a cleansing solution and the L4-L5 interspace was palpated. Skin a nd subcutaneous tissues were anesthetized using lidocaine 1.5% and a 25-gauge needle. After this, an 18-gauge Touhy epidural needle was placed into the L4-L5 interspace and advanced using fluoroscopic guidance and loss of resistance to air until the epidural space was encountered. After confirmation of needle placement in the epidural space, with dye, a solution containing normal saline, 3 mL and Depo-Medrol 80 mg were incrementally injected into the lumbar epidural space. The patient tolerated the procedure well with no complications. The patient was observed in the Pain Clinic and then discharged home neurologically intact. Plan and Disposition:: Patient was discharged without incident.
== END 2023-10-09 08:58 | disposition home or self-care (01) ==
LOC: SC.PAINP 08:08
PROVIDERS: Visit Provider Nurse Anesthetist, Certified Registered
DX: M51.16 Intervertebral disc disorders with radiculopathy, lumbar region (principal)
CPT/HCPCS: 62323; J1010

== ENCOUNTER 2023-12-03 13:46 | Outpatient (POV) | payer MEDICARE, SELFPAY ==
--- NOTE | 2023-12-03 14:40 | EXP.PAIN.SOA ---
[facility] Disclaimer: The information contained in this section may have been updated after the patient was seen, as this information can be updated by other users. 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 Today he rates his pain a 3 out of 10. He denies any new changes from our last visit. He does state that he has had at least 90% improvement and feels like the injection is still helping. Patient states he has been able to move around easier with overall decreased pain and improved function. His Jese has been reviewed and is appropriate. Review of Systems: General: No recent weight changes, no fever, no sleep disturbances Respiratory: No cough, no shortness of air, no recurring pulmonary infections Cardiovascular/peripheral vascular: No chest pain, no palpitations, no edema, no shortness of breath Gastrointestinal: No new onset incontinence, normal bowel movements reported Genitourinary: No new onset incontinence Musculoskeletal: Low back pain Psychiatric: [Normal mood/affect] Neurological: [Denies weakness in extremities], [denies balance issues] Pain at rest (0-10 scale): 3 Objective Objective:: Physical Exam: General: Alert and oriented x3, no acute distress, pleasant and cooperative Lungs: Respirations even and unlabored, symmetrical chest expansion Eyes: PERRL Musculoskeletal: Flexion and extension of lumbar [spine] somewhat guarded secondary to pain, [antalgic gait noted] Neurological: Speech clear, no gross sensory deficit Has patient had previous pain injection?: Yes Percent improvement in pain since last injection: 90% Conservative treatment options previously tried: Home exercise plan Length of treatment: Longer than 12 weeks Meds Home Medications and Allergies Home Medications ?Medication ?Instructions ?Recorded ?Confirmed ?Type albuterol sulfate 90 mcg/actuation 1 - 2 puffs IH Q4HP PRN Shortness 03/25/21 10/09/23 Rx aerosol inhaler Of Breath #1 ea duloxetine 60 mg capsule,delayed 60 mg PO DAILY Anxiety 11/29/21 10/09/23 History release diclofenac sodium 75 mg 75 mg PO BID PRN . 02/28/22 10/09/23 History tablet,delayed release lisinopril 20 mg tablet See Rx Instructions .Route 03/30/22 10/09/23 Rx .COMPLEX #30 tabs New Prescriptions to Start Prescriptions: Allergies Allergy/AdvReac Type Severity Reaction Status Date / Time morphine [MORPHINE] Allergy Severe HALLUCINATI Verified 10/09/23 08:30 ON Assessment and Plan *Assessment and plan (1) Degenerative disc disease, lumbar: Status: Acute Category: Medical Code(s): M51.36 - Other intervertebral disc degeneration, lumbar region (2) Lumbar radiculopathy: Status: Acute Category: Medical Code(s): M54.16 - Radiculopathy, lumbar region Plan Patient did have significant improvement following his injection and does not require any additional injection therapy at this time. Patient will return to clinic in 1 month for reevaluation of symptoms and plan of care. Patient has been instructed to contact the clinic with any concerns before the next appointment. Dr. Raza has reviewed this note and agrees with this plan of care. This note was dictated using voice recognition software and make contain errors or omissions. All injections are used with Lidocaine or Bupivacaine and Depo Medrol.
[2023-12-03 15:27] VITALS: BP 146/81; PULSE 65; RESP 18; O2SAT 97; BMI 48.7
== END 2023-12-03 23:59 | disposition home or self-care (01) ==
LOC: SC.PAIN 13:47
PROVIDERS: PCP Nurse Practitioner; Visit Provider Nurse Practitioner Family
DX: M51.16 Intervertebral disc disorders with radiculopathy, lumbar region (principal)
CPT/HCPCS: 99212; G0463

== ENCOUNTER 2024-01-07 14:26 | Outpatient (POV) | payer MEDICARE, SELFPAY ==
[2024-01-07 15:24] VITALS: BP 161/80; PULSE 84; RESP 16; O2SAT 93; BMI 47.5
--- NOTE | 2024-01-07 16:03 | A.OFFVIS_ITS ---
[facility] Disclaimer: The information contained in this section may have been updated after the patient was seen, as this information can be updated by other users. 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 H mariola does rate his pain today at 3 out of 10 however states that it will go to more than 5 out of 10 with increased activity. He states last week he had such a bad day that he did not even go to work due to the worsening pain. Patient does state he officially feels like his pain is back to its baseline and that the last epidural has officially worn off. He states that he is experiencing worsening pain in his low back with radiating numbness and tingling down into his bilateral lower extremities. patient did previously get a lumbar epidural back at the beginning of October that did provide 90% improvement and did get significant improved function up until last week. Patient states he would like to see about repeating this injection because it did help so much. Patient has continued at home stretching exercise for longer than 12 weeks along with conservative treatment of oral medications heat and ice and topicals. His Jese has been reviewed and is appropriate.\ Review of Systems: General: No recent weight changes, no fever, no sleep disturbances Respiratory: No cough, no shortness of air, no recurring pulmonary infections Cardiovascular/peripheral vascular: No chest pain, no palpitations, no edema, no shortness of breath Gastrointestinal: No new onset incontinence, normal bowel movements reported Genitourinary: No new onset incontinence Musculoskeletal: Low back pain, bilateral leg numbness and tingling Psychiatric: [Normal mood/affect] Neurological: [Denies weakness in extremities], [denies balance issues] Pain at rest (0-10 scale): 5 Objective Objective:: MARPhysical Exam: General: Alert and oriented x3, no acute distress, pleasant and cooperative Lungs: Respirations even and unlabored, symmetrical chest expansion Eyes: PERRL Musculoskeletal: Flexion and extension of lumbar [spine] somewhat guarded secondary to pain, [antalgic gait noted] positive leg raise Neurological: Speech clear, no gross sensory deficit Has patient had previous pain injection?: No Conservative treatment options previously tried: Home exercise plan Length of treatment: Longer than 12 weeks Meds Home Medications and Allergies Home Medications ?Medication ?Instructions ?Recorded ?Confirmed ?Type albuterol sulfate 90 mcg/actuation 1 - 2 puffs IH Q4HP PRN Shortness 03/25/21 01/07/24 Rx aerosol inhaler Of Breath #1 ea duloxetine 60 mg capsule,delayed 60 mg PO DAILY Anxiety 11/29/21 01/07/24 History release diclofenac sodium 75 mg 75 mg PO BID PRN . 02/28/22 01/07/24 History tablet,delayed release lisinopril 20 mg tablet See Rx Instructions .Route 03/30/22 01/07/24 Rx .COMPLEX #30 tabs New Prescriptions to Start Prescriptions: Allergies Allergy/AdvReac Type Severity Reaction Status Date / Time morphine (MORPHINE) Allergy Severe HALLUCINATI Verified 10/09/23 08:30 ON Assessment and Plan *Assessment and plan (1) Lumbar radiculopathy: Status: Acute Category: Medical Code(s): M54.16 - Radiculopathy, lumbar region (2) Degenerative disc disease, lumbar: Status: Acute Category: Medical Code(s): M51.36 - Other intervertebral disc degeneration, lumbar region Plan Patient is experiencing worsening pain with numbness and tingling into his bilateral lower extremities. Patient did previously have a lumbar epidural back on October 08 that did provide 90% improvement and gave improved function over the last 3 months. I did discuss with patient that I do believe he would benefit from repeat lumbar epidural steroid injection. Risk and benefits were discussed with the patient and he would like to proceed forward with this plan of care. Patient has tried and failed conservative therapy including continued at home stretching exercise for longer than 12 weeks and has been experiencing this pain for longer than a year. Patient will be scheduled for repeat lumbar epidural steroid injection L4-L5 under fluoroscopy. Patient has been instructed to contact the clinic with any concerns before the next appointment. Dr. Raza has reviewed this note and agrees with this plan of care. This note was dictated using voice recognition software and make contain errors or omissions. All injections are used with Lidocaine or Bupivacaine and Depo Medrol.
== END 2024-01-07 23:59 | disposition home or self-care (01) ==
LOC: SC.PAIN 14:28
PROVIDERS: PCP Nurse Practitioner; Visit Provider Nurse Practitioner Family
DX: M51.16 Intervertebral disc disorders with radiculopathy, lumbar region (principal)
CPT/HCPCS: 99212; G0463

== ENCOUNTER 2024-02-12 08:55 | Day surgery (SDC) | payer MEDICARE, SELFPAY ==
[2024-02-12 09:15] VITALS: BP 152/83; PULSE 89; RESP 16; O2SAT 94; BMI 47.5
--- NOTE | 2024-02-12 09:19 | EXP.PAIN.PRO ---
Procedure Date: 02/12/24 Time: 09:00 Anesthesiologist:: Khadar Fischer CRNA Complications:: None Pre-procedure Diagnosis:: Degenerative disc lumbar spine multilevels. Lumbar radiculopathy. Disc bulge lumbar spine L4-5, L5-S1. Lumbar spondylosis. Post-procedure Diagnosis:: Same. Indications for Procedure:: Patient is a 48-year-old male that comes our clinic today for repeat lumbar epidural steroid injection at the L4-5 level. Patient reports significant proved in terms of his overall low back pain as well as bilateral hip and leg radicular symptoms with previous injection same level. He rates his pain today 6/10. He describes low back pain as constant, dull, aching. Patient also reports bilateral hip and leg radicular symptoms. Procedure Details:: Procedure: Lumbar epidural steroid injection under fluoroscopy Informed consent was obtained and the risks and benefits of the procedure were explained to the patient. The patient was taken to the procedure room and noninvasive monitors placed, including noninvasive blood pressure cuff and pulse oximeter. The back was viewed using C-arm Fluoroscopy and prepped using Chloraprep as a cleansing solution and the L4-L5 interspace was palpated. Skin and subcutaneous tissues were anesthetized using lidocaine 1.5% and a 25-gauge needle. After this, an 18-gauge Touhy epidural needle was placed into the L4-L5 interspace and advanced using fluoroscopic guidance and loss of resistance to air until the epidural space was encountered. After confirmation of needle placement in the epidural space, with dye, a solution containing normal saline, 3 mL and Depo-Medrol 80 mg were incrementally injected into the lumbar epidural space. The patient tolerated the procedure well with no complications. The patient was observed in the Pain Clinic and then discharged home neurologically intact. Plan and Disposition:: Patient was discharged without incident.
[2024-02-12 09:21] VITALS: BP 155/100; PULSE 71; PULSE 77; RESP 18; O2SAT 95
[2024-02-12] MEDS: methylPREDNISolone ACETATE 80MG/ML VIAL 80 MG (09:21)
[2024-02-12 09:30] VITALS: BP 156/89; PULSE 77; RESP 16; O2SAT 91
== END 2024-02-12 09:30 | disposition home or self-care (01) ==
PROVIDERS: PCP Nurse Practitioner; Visit Provider Nurse Anesthetist, Certified Registered
DX: M51.16 Intervertebral disc disorders with radiculopathy, lumbar region (principal); M47.26 Other spondylosis with radiculopathy, lumbar region
CPT/HCPCS: 62323; J1010

== ENCOUNTER 2024-03-26 13:18 | Outpatient (POV) | payer MEDICARE, SELFPAY ==
--- NOTE | 2024-03-26 13:29 | A.OFFVIS_ITS ---
[facility] Disclaimer: The information contained in this section may have been updated after the patient was seen, as this information can be updated by other users. 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 Today he rates his pain a 0 out of 10. He denies any new injury or trauma. He states that he has had 100% relief following this injection and feels like it is still providing significant improvement. His Jese has been reviewed and is appropriate. Review of Systems: General: No recent weight changes, no fever, no sleep disturbances Respiratory: No cough, no shortness of air, no recurring pulmonary infections Cardiovascular/peripheral vascular: No chest pain, no palpitations, no edema, no shortness of breath Gastrointestinal: No new onset incontinence, normal bowel movements reported Genitourinary: No new onset incontinence Musculoskeletal: Low back pain Psychiatric: [Normal mood/affect] Neurological: [Denies weakness in extremities], [denies balance issues] Pain at rest (0-10 scale): 0 Objective Objective:: Physical Exam: General: Alert and oriented x3, no acute distress, pleasant and cooperative Lungs: Respirations even and unlabored, symmetrical chest expansion Eyes: PERRL Musculoskeletal: Flexion and extension of lumbar spine within normal limits Neurological: Speech clear, no gross sensory deficit Has patient had previous pain injection?: Yes Percent improvement in pain since last injection: 100% Conservative treatment options previously tried: Home exercise plan Length of treatment: Longer than 12 weeks Meds Home Medications and Allergies Home Medications ?Medication ?Instructions ?Recorded ?Confirmed ?Type albuterol sulfate 90 mcg/actuation 1 - 2 puffs IH Q4HP PRN Shortness 03/25/21 02/12/24 Rx aerosol inhaler Of Breath #1 ea duloxetine 60 mg capsule,delayed 60 mg PO DAILY Anxiety 11/29/21 02/12/24 History release diclofenac sodium 75 mg 75 mg PO BID PRN . 02/28/22 02/12/24 History tablet,delayed release lisinopril 20 mg tablet See Rx Instructions .Route 03/30/22 02/12/24 Rx .COMPLEX #30 tabs New Prescriptions to Start Prescriptions: Allergies Allergy/AdvReac Type Severity Reaction Status Date / Time morphine (MORPHINE) Allergy Severe HALLUCINATI Verified 10/09/23 08:30 ON Assessment and Plan *Assessment and plan (1) Lumbar radiculopathy: Status: Acute Category: Medical Code(s): M54.16 - Radiculopathy, lumbar region (2) Degenerative disc disease, lumbar: Status: Acute Category: Medical Code(s): M51.369 - Other intervertebral disc degeneration, lumbar region without mention of lumbar back pain or lower extremity pain Plan Patient has had significant improvement following this injection and does not require any additional injection therapy at this time. Patient will return to clinic in 6 weeks. Patient has been instructed to contact the clinic with any concerns before the next appointment. Dr. Raza has reviewed this note and agrees with this plan of care. This note was dictated using voice recognition software and make contain errors or omissions. All injections are used with Lidocaine, Bupivacaine and Depo Medrol. Occasionally urine drug screen is needed to verify patient's compliance with our office pain contract. This is ordered based off specific treatments related to chronic pain with the potential to abuse certain medications.
[2024-03-26 13:47] VITALS: BP 137/94; PULSE 102; RESP 14; O2SAT 96; BMI 60.0
== END 2024-03-26 23:59 | disposition home or self-care (01) ==
LOC: SC.PAIN 13:19
PROVIDERS: PCP Nurse Practitioner; Visit Provider Nurse Practitioner Family
DX: M51.16 Intervertebral disc disorders with radiculopathy, lumbar region (principal)
CPT/HCPCS: 99212; G0463

== ENCOUNTER 2024-05-07 13:26 | Outpatient (POV) | payer MEDICARE, SELFPAY ==
--- NOTE | 2024-05-07 13:48 | EXP.PAIN.SOA ---
[facility] Disclaimer: The information contained in this section may have been updated after the patient was seen, as this information can be updated by other users. 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 Today he rates his pain a 0 out of 10. He denies any new changes from our last visit. He does state that he still feels like his last epidural that was done in February at L4-L5 is still working wonderful. Patient states he is able to do more with overall increased function. His Jese has been reviewed and is appropriate. Review of Systems: General: No recent weight changes, no fever, no sleep disturbances Respiratory: No cough, no shortness of air, no recurring pulmonary infections Cardiovascular/peripheral vascular: No chest pain, no palpitations, no edema, no shortness of breath Gastrointestinal: No new onset incontinence, normal bowel movements reported Genitourinary: No new onset incontinence Musculoskeletal: Low back pain Psychiatric: [Normal mood/affect] Neurological: [Denies weakness in extremities], [denies balance issues] Pain at rest (0-10 scale): 0 Objective Objective:: Physical Exam: General: Alert and oriented x3, no acute distress, pleasant and cooperative Lungs: Respirations even and unlabored, symmetrical chest expansion Eyes: PERRL Musculoskeletal: Flexion and extension of lumbar [spine] within normal limits Has patient had previous pain injection?: No Conservative treatment options previously tried: Home exercise plan Length of treatment: Longer than 12 weeks Meds Home Medications and Allergies Home Medications ?Medication ?Instructions ?Recorded ?Confirmed ?Type albuterol sulfate 90 mcg/actuation 1 - 2 puffs IH Q4HP PRN Shortness 03/25/21 03/26/24 Rx aerosol inhaler Of Breath #1 ea duloxetine 60 mg capsule,delayed 60 mg PO DAILY Anxiety 11/29/21 03/26/24 History release diclofenac sodium 75 mg 75 mg PO BID PRN . 02/28/22 03/26/24 History tablet,delayed release lisinopril 20 mg tablet See Rx Instructions .Route 03/30/22 03/26/24 Rx .COMPLEX #30 tabs New Prescriptions to Start Prescriptions: Allergies Allergy/AdvReac Type Severity Reaction Status Date / Time morphine (MORPHINE) Allergy Severe HALLUCINATI Verified 10/09/23 08:30 ON Assessment and Plan *Assessment and plan (1) Lumbar radiculopathy: Status: Acute Category: Medical Code(s): M54.16 - Radiculopathy, lumbar region (2) Degenerative disc disease, lumbar: Status: Acute Category: Medical Code(s): M51.369 - Other intervertebral disc degeneration, lumbar region without mention of lumbar back pain or lower extremity pain Plan Patient has continued to get significant improvement following his lumbar epidural in February and does not require any additional injection therapy at this time. Patient will return to clinic in 3 months. Patient has been instructed to contact the clinic with any concerns before the next appointment. Dr. Raza has reviewed this note and agrees with this plan of care. This note was dictated using voice recognition software and make contain errors or omissions. All injections are used with Lidocaine, Bupivacaine and Depo Medrol. Occasionally urine drug screen is needed to verify patient's compliance with our office pain contract. This is ordered based off specific treatments related to chronic pain with the potential to abuse certain medications.
[2024-05-07 14:42] VITALS: BP 140/85; PULSE 94; RESP 18; O2SAT 98; BMI 47.2
== END 2024-05-07 23:59 | disposition home or self-care (01) ==
LOC: SC.PAIN 13:28
PROVIDERS: PCP Nurse Practitioner; Visit Provider Nurse Practitioner Family
DX: M51.16 Intervertebral disc disorders with radiculopathy, lumbar region (principal)
CPT/HCPCS: 99212; G0463

== ENCOUNTER 2024-06-04 11:33 | Outpatient (POV) | payer MEDICARE, SELFPAY ==
[2024-06-04 11:46] VITALS: BP 145/87; BP 165/89; PULSE 92; RESP 16; O2SAT 95; BMI 48.4
--- NOTE | 2024-06-04 12:05 | EXP.PAIN.SOA ---
[facility] Disclaimer: The information contained in this section may have been updated after the patient was seen, as this information can be updated by other users. 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 He rates it a 5 out of 10. He denies any new falls or injuries. He does state that the pain is just there to his back and denies any radiating symptoms into his legs. Patient does describe it as an aching, throbbing sensation that is worse with certain activities or movement. He does state the pain is interfering with his ability perform activities of daily living such as cooking and cleaning. Patient is interested in additional injection therapy as it has done really well in the past. His Jese has been reviewed and is appropriate. Review of Systems: General: No recent weight changes, no fever, no sleep disturbances Respiratory: No cough, no shortness of air, no recurring pulmonary infections Cardiovascular/peripheral vascular: No chest pain, no palpitations, no edema, no shortness of breath Gastrointestinal: No new onset incontinence, normal bowel movements reported Genitourinary: No new onset incontinence Musculoskeletal: Low back pain Psychiatric: [Normal mood/affect] Neurological: [Denies weakness in extremities], [denies balance issues] Pain at rest (0-10 scale): 5 Objective Objective:: Physical Exam: General: Alert and oriented x3, no acute distress, pleasant and cooperative Lungs: Respirations even and unlabored, symmetrical chest expansion Eyes: PERRL Musculoskeletal: Flexion and extension of lumbar [spine] somewhat guarded secondary to pain, [antalgic gait noted] positive Kemps test Neurological: Speech clear, no gross sensory deficit FINDINGS: Bones/joints: There are 5 non rib-bearing lumbar vertebral segments. Lumbar vertebral body height and alignment is preserved. Facet joints are appropriately aligned. Posterior elements are intact. Moderate degenerative disc disease L4-L5 and L5-S1 with vacuum disc phenomena and posterior projecting disc osteophyte complex. Mild loss of disc space remainder of lumbar levels. Bridging endplate osteophyte formation at all lumbar levels. Moderate degenerate facet joint spondylosis greatest at L3 through S1 bilaterally. Spinal canal contents are near completely obscured by attenuation artifact. Degenerative changes bilateral SI joints. Good portions of the sacrum are unremarkable. No concerning bone lesions. Kidneys and ureters: Occluded portions of both kidneys are unremarkable. Vasculature: Abdominal aorta is normal in caliber. Soft tissues: Routine dependent subcutaneous edema posterior to the lumbar spine. No paraspinal mass or fluid collection. Other findings: Considerable attenuation artifact referral to large body habitus, limits detail. IMPRESSION: 1. No acute lumbar fracture or traumatic subluxation. 2. Moderate degenerative disc disease L4-L5 and L5-S1. 3. Spinal canal contents are completely obscured by attenuation artifact. Has patient had previous pain injection?: No Conservative treatment options previously tried: Home exercise plan Length of treatment: Longer than 12 weeks Meds Home Medications and Allergies Home Medications ?Medication ?Instructions ?Recorded ?Confirmed ?Type albuterol sulfate 90 mcg/actuation 1 - 2 puffs IH Q4HP PRN Shortness 03/25/21 06/04/24 Rx aerosol inhaler Of Breath #1 ea duloxetine 60 mg capsule,delayed 60 mg PO DAILY Anxiety 11/29/21 06/04/24 History release diclofenac sodium 75 mg 75 mg PO BID PRN . 02/28/22 06/04/24 History tablet,delayed release lisinopril 20 mg tablet See Rx Instructions .Route 03/30/22 06/04/24 Rx .COMPLEX #30 tabs New Prescriptions to Start Prescriptions: Allergies Allergy/AdvReac Type Severity Reaction Status Date / Time morphine (MORPHINE) Allergy Severe HALLUCINATI Verified 10/09/23 08:30 ON Assessment and Plan *Assessment and plan (1) Lumbar spondylosis: Status: Acute Category: Medical Code(s): M47.816 - Spondylosis without myelopathy or radiculopathy, lumbar region (2) Low back pain: Status: Acute Category: Medical Code(s): M54.50 - Low back pain, unspecified Plan Patient is experiencing significant pain in his low back that is worse with bending, twisting or lifting. Patient did have limited range of motion of his lumbar spine with a positive Kemps test during today's visit. I did discuss with the patient that I do believe he would benefit from a lumbar medial branch block. Risk and benefits were discussed with the patient and he would like to proceed forward with this plan of care. Patient has tried and failed conservative therapy including oral medications, heat and ice, topicals, at home stretching exercise for longer than 12 weeks. Patient has been experiencing chronic low back pain for years. Patient was counseled that if he does get significant relief with his first lumbar medial branch block that we will plan on repeating it with the plan to progress forward to a lumbar RFA at a later date. Patient agrees with this plan of care. Patient will be scheduled for his first diagnostic lumbar medial branch block bilaterally L4-L5 and L5-S1 under fluoroscopy. Patient did have bone spurs noted at his last imaging at both of these levels. I will also send in a prescription of methocarbamol 750 mg 3 times daily as needed with a 2-week dose. Patient has been instructed to contact the clinic with any concerns before the next appointment. Dr. Raza has reviewed this note and agrees with this plan of care. This note was dictated using voice recognition software and make contain errors or omissions. All injections are used with Lidocaine, Bupivacaine and dexamethasone. Occasionally urine drug screen is needed to verify patient's compliance with our office pain contract. This is ordered based off specific treatments related to chronic pain with the potential to abuse certain medications.
== END 2024-06-04 23:59 | disposition home or self-care (01) ==
PROVIDERS: PCP Nurse Practitioner; Visit Provider Nurse Practitioner Family
DX: M47.816 Spondylosis without myelopathy or radiculopathy, lumbar region (principal); M54.50 Low back pain, unspecified; Z73.89 Other problems related to life management difficulty
CPT/HCPCS: 99212; G0463

== ENCOUNTER 2024-07-01 09:34 | Day surgery (SDC) | payer MEDICARE, SELFPAY ==
[2024-07-01 09:38] VITALS: BP 143/89; PULSE 98; RESP 16; TEMP 36.4; O2SAT 93; BMI 47.5
[2024-07-01] MEDS: LIDOCAINE 1% 5ML PF VIAL 5 ML (09:52)
[2024-07-01] MEDS: DEXAMETHASONE 10MG/ML 1ML VIAL 10 MG (09:52)
[2024-07-01 09:53] VITALS: BP 118/88; PULSE 99; RESP 18; O2SAT 92
[2024-07-01 09:54] VITALS: BP 118/88; PULSE 99; RESP 18; O2SAT 92
--- NOTE | 2024-07-01 09:58 | EXP.PAIN.PRO ---
Procedure Date: 07/01/24 Time: 09:55 Anesthesiologist:: Khadar Fischer CRNA Complications:: None Pre-procedure Diagnosis:: Degenerative disc lumbar spine multilevels. Lumbar radiculopathy. Lumbar disc bulge multilevel lumbar spine. Lumbar spondylosis. Multilevel lumbar facet arthropathy. Post-procedure Diagnosis:: Same. Indications for Procedure:: Patient is a very pleasant 48-year-old male who comes our clinic today for ROUND ONE of lumbar medial branch blocks/facet injections at the bilateral L4-5, L5-S1 level. Patient has responded well to previous lumbar epidural steroid injections at the L4-5 level. However, he is having difficulty with lumbar flexion, extension, left and right rotation. Difficulty standing for any length of time. He rates his pain 7/10. Procedure Details:: Informed consent was obtained and the risk and benefits of the procedure was explained to the patient. Patient was taken to the procedure room where noninvasive monitors were placed, including noninvasive blood pressure cuff as well as pulse oximeter. The area over the lumbar spine was cleansed using chlorhexidine as a cleansing solution. I anesthetized the skin and subcutaneous tissues with 1% Lidocaine. I placed 22-gauge spinal needles into the facet joint/ medial branches of [L3-L4, L4-L5, and L5-S1] bilaterally. Needle placement was confirmed with fluoroscopy. After confirmation of needle placement, each site was injected with 1 mL of 1% lidocaine and 0.25 % Marcaine and 10 mg of Depo-Medrol. A total of 80 mg of depo medrol was used for bilateral medial branch blocks of [L3-L4, L4-L5, and L5-S1] bilaterally. Patient tolerated the procedure without difficulty. There were no complications. Plan and Disposition:: Patient was discharged without incident.
[2024-07-01 10:00] VITALS: BP 138/81; PULSE 91; RESP 16; O2SAT 93
== END 2024-07-01 10:00 | disposition home or self-care (01) ==
PROVIDERS: PCP Nurse Practitioner; Visit Provider Nurse Anesthetist, Certified Registered
DX: M47.816 Spondylosis without myelopathy or radiculopathy, lumbar region (principal); M51.369 Other intervertebral disc degeneration, lumbar region without mention of lumbar back pain or lower extremity pain
CPT/HCPCS: 64493; 64494; J1100

== ENCOUNTER 2024-08-06 13:17 | Outpatient (POV) | payer MEDICARE, SELFPAY ==
--- OUTSIDE RECORDS SUMMARY | 2024-08-06 13:23 | XMS_ITS | Clinical Summary ---
Author Organization Healthcare Address [address] [place] [address] Care Team Providers Care Signal Tower Director Name Role Phone Sidney Judge MD Primary Care Provider + [phone] Family History Medical History Relation Name Comments Other cancer Other Relation Name Status Comments Other Social History Tobacco Use Types Packs/Day Years Used Date Smoking Tobacco: Every Day Alcohol Use Standard Drinks/Week Comments No 0 (1 standard drink = 0.6 oz pur e alcohol) Sex and Gender Information Value Date Recorded Sex Assigned at Not on file Legal Sex Male 6:05 PM EDT Gender Identity Not on file Sexual Orientation Not on file Last Filed Vital Signs Vital Sign Reading Time Taken Comments Blood Pressure 160/93 03/25/2019 1:29 PM EST Pulse 76 03/25/2019 1:29 PM EST Temperature 36.2 C (97.2 F) 03/25/2019 1:29 PM EST Respiratory Rate - - Oxygen Saturation - - Inhaled Oxygen Concentration - - Weight 173 kg (381 lb 13.4 oz) 03/25/2019 1:29 P M EST Height 190.5 cm (6' 3 ) 03/25/2019 1:29 PM EST Body Mass Index 47.73 03/25/2019 1:29 PM EST Plan of Treatment Not on file Care Teams Signal Tower Director Relationship Specialty Start Date End Date Sidney Judge MD [address] [place] [address] PCP - General 06/18/20
--- OUTSIDE RECORDS SUMMARY | 2024-08-06 13:24 | XMS_ITS | Clinical Summary ---
Author Organization [facility] Address [address] [place] [id number] Care Team Providers Care Cascade Operator Name Role Phone Unavailable Primary Care Provider Unavailabl e Source Comments This information has been disclosed to you from confidential records protectedfrom disclosure by state law. You shall make no further disclosure of thisinformation without the specific, written, and informed release of theindividual to whom it pertains, or as otherwise permitted by law. A generalauthorization for the release of medical or other information is not sufficientfor the purposes of therelease of HIV test results or diagnoses. [id number] Health Allergies Active Allergy Reactions Criticality Noted Date Comments Hydromorphone (Bulk) 06/08/2014 Ethyl Chloride Rash Low 07/09/2014 Morphine Other (See Comments) 06/08/2014 Diaphoretic/ H/A, N/V Medications acetaminophen (TYLENOL) 325 MG tablet Take by mouth. Active albuterol (PROVENTIL HFA;VENTOLIN HFA) 90 mcg/actuation inhaler Inhale into the lungs. 08/28/2012 Active diclofenac sodium 1 % Gel Apply topically. 12/15/2013 Active escitalopram oxalate (LEXAPRO) 20 MG tablet Take by mouth. 12/15/2013 Active lisinopril (PRINIVIL,ZESTRI L) 40 MG tablet Take by mouth. 12/15/2013 Active meloxicam (MOBIC) 15 MG tablet Take by mouth. 12/15/2013 Active Active Problems Problem Noted Date Diagnosed Date Partial small bowel obstruction 08/18/2014 Osteoarthrosis, unspecified whether generalized or localized, involving lower leg 07/02/2014 Overview (11/05/2014): ICD-10 Transition Morbid obesity with BMI of 50.0-59.9, adult 05/0 07/2014 HTN (hypertension) 06/10/2014 Asthma 06/10/2014 Anxiety and depression 06/10/2014 GERD (gastroesophageal reflux disease) 5 Knee pain, bilateral 06/08/2014 Immunizations Immunization Administration Dates Next Due Pneumococcal polysaccharide, 23-valent 2 Family History Medical History Relation Comments Colon Cancer Maternal Grandmother Stroke Maternal Grandmother Relation Status Comments Maternal Grandmother Social History Tobacco Use Types Packs/Day Years Used Date Smoking Tobacco: Every Day Cigarettes Alcohol Use Standard Drinks/Week Comments No 0 (1 standard drink = 0.6 oz pur e alcohol) Sex and Gender Information Value Date Recorded Sex Assigned at Not on file Legal Sex Male 6:07 PM EST Gender Identity Not on file Sexual Orientation Not on file Last Filed Vital Signs Vital Sign Reading Time Taken Comments Blood Pressure 126/72 08/18/2014 10:56 AM EDT Pulse 106 08/18/2014 10:56 AM EDT Temperature - - Respiratory Rate - - Oxygen Saturation 97% 08/18/2014 10:56 AM EDT Inhaled Oxygen Concentration 97% 08/18/2014 1 0:56 AM EDT Weight 212.7 kg (469 lb) 08/18/2014 10:56 AM EDT Height 190.5 cm (6' 3 ) 08/18/2014 10:56 AM EDT Body Mass Index 58.62 08/18/2014 10:56 AM EDT Plan of Treatment Not on file
--- OUTSIDE RECORDS SUMMARY | 2024-08-06 13:24 | XMS_ITS | Encounter Summary ---
Author Organization [place] [address] Care Team Providers Care Filling Room Operator Name Role Phone Nat Carlton APRN Primary Care Provider Sirisha Deras MD Unavailable [phone] Reason for Visit * Reason Onset Date Comments Refill 07/23/2024 Disp Refills Sta rt End metFORMIN (GLUCOPHAGE XR) 500 mg Oral ER 24 hr tablet 120 Tablet 5 12/04/2023 - Encounter Details Date Type Department Care Team (Late st Contact Info) Description 07/23/2024 Refill [facility] [address] [place] [id number] Nat Carlton APRN [address] [place] [address] Refill (/ Disp Refills Start End /metFORMIN (GLUCOPHAGE XR) 500 mg Oral ER 24 hr tablet 120 Tablet 5 12/04/2023 - //) Social History Tobacco Use Types Packs/Day Years Used Date Smoking Tobacco: Every Day Cigarettes 1 23 Smokeless Tobacco: Never Alcohol Use Standard Drinks/Week Comments No 0 (1 standard drink = 0.6 oz pur e alcohol) PHQ-2 Answer Date Recorded PHQ-2 Total Score 0 07/11/2023 Sexually Active Control Partners Comments Yes Sex and Gender Information Value Date Recorded Sex Assigned at Not on file Legal Sex Male 4:48 PM EDT Gender Identity Not on file Sexual Orientation Not on file documented as of this encounter Functional Status * Is the person deaf or does he/she have serious difficulty hearing? Answer Date of Assessment Author No 07/11/2023 10:03 AM Aggie Elizabeth CCMA * Is the person blind or does he/she have serious difficulty seeing even when wearing glasses? Answer Date of Assessment Author No 07/11/2023 10:03 AM Aggie Elizabeth CCMA * Does this person have serious difficulty walking or climbing stairs? Answer Date of Assessment Author No 07/11/2023 10:03 AM Aggie Elizabeth CCMA * Does this person have difficulty dressing or bathing? Answer Date of Assessment Author No 07/11/2023 10:03 AM Aggie Elizabeth CCMA * Because of a physical, mental or emotional condition, does this person have difficulty doing errands alone such as visiting a doctor's office or shopping? Answer Date of Assessment Author No 07/11/2023 10:03 AM Aggie Elizabeth CCMA documented as of this encounter Mental Status * Because of a physical, mental or emotional condition, does this person have serious difficulty concentrating, remembering or making decisions? Answer Entry Date Author No 07/11/2023 10:03 AM Aggie Elizabeth CCMA documented in this encounter Ordered Prescriptions Prescription Sig Dispense Quantity Refills Last Filled Start Date End Date metFORMIN (GLUCOPHAGE XR) 500 mg Oral ER 24 hr tabletIndications: Prediabetes Take 2 Tablets by mouth 2 times daily (with meals). Needs an appointment 120 Tablet 07/23/2024 documented in this encounter Miscellaneous Notes * Telephone Encounter - Mary Morse MA - 07/23/2024 10:07 AM EDT Select the most appropriate reason for this telephone message: Medication Refill Who is requesting the refill: Other [employer] Medication(s)Name/Dosage/Frequency: Disp Refills Start End metFORMIN (GLUCOPHAGE XR) 500 mg Oral ER 24 hr tablet 120 Tablet 5 12/04/2023 -- Did patient contact the pharmacy first: No, [facility] notes medication has been past due for 10 days. How many days left on hand: N/A Future appt date w/ prescribing provider: None Pharmacy & Location: [facility] - [place] [id number] - [address] - [phone] [[id number]] Return Method of Communication: N/A Additional Information: N/A documented in this encounter Plan of Treatment Not on file documented as of this encounter Goals Goal Patient Goal Type Associated Problems Recent Progress Patient-Stated? Author Blood Pressure < 140/90 Blood Pressure 172/100(04/23 3:04 PM EDT) No Nat Carlton APRN Maintain a healthy diet, exercise regularly and maintain an ideal body weight General No Nat Carlton APRN Stay Tobacco Free Lifestyle No Nat Carlton APRN documented as of this encounter Visit Diagnoses Diagnosis Prediabetes Other abnormal glucose documented in this encounter Discontinued Medications Medication Sig Discontinue Reason Start Date End Da te metFORMIN (GLUCOPHAGE XR) 500 mg Oral ER 24 hr tabletIndications:Pred iabetes Take 2 Tablets by mouth 2 times daily (with meals). Needs an appointment Reorder 12/04/2023 07/23/2024 documented as of this encounter Care Teams Filling Room Operator Relationship Specialty Start Date End Date Nat Carlton APRN [address] [place] [address] PCP - General Nurse Practitioner-Family 11/26/20 Sirisha Deras MD [address] [place] [address] Consulting Physician Internal Medicine-Endocrinology, Diabetes & Metabolism 08/29/22 documented as of this encounter
--- OUTSIDE RECORDS SUMMARY | 2024-08-06 13:24 | XMS_ITS | Clinical Summary ---
Author Organization [facility] Address [address] [place] [address] Phone Care Team Providers Care Foundry Manager Name Role Phone Nat Carlton APRN Primary Care Provider [phone] Sirisha Deras MD Unavailable [phone] Allergies Active Allergy Reactions Criticality Noted Date Comments Hydromorphone Other (See Comments) 08/18/2014 Fever & hallucinations Morphine Other (See Comments) 10/27/2011 Diaphoretic/ H/A, N/V Medications albuterol (PROVENTIL HFA;VENTOLIN HFA) 90 mcg/actuation Inhl HFA Aerosol InhalerIndicatio ns:Moderate persistent asthma with acute exacerbation Inhale 2 Puffs into the lungs every 4 hours as needed for Wheezing. 1 Each 2 3 Active ergocalciferol (VITAMIN D) 1,250 mcg (50,000 unit) Oral CapsuleIndicatio ns:Vitamin D deficiency Take 1 Capsule by mouth once a week. 12 Capsule 3 4 Active tamsulosin (FLOMAX) 0.4 mg Oral CapsuleIndicatio ns:Urinary frequency Take 1 Capsule by mouth nightly. 90 Capsule 3 4 Active atorvastatin (LIPITOR) 40 mg Oral TabletIndication s:Left-sided carotid artery disease, unspecified type,Hyperlipide milagros with target LDL less than 130 Take 1 Tablet by mouth daily. 90 Tablet 3 4 Active omeprazole (PRILOSEC) 40 mg Oral Capsule, Delayed Release(E.C.)Ind ications:Gastroe sophageal reflux disease with esophagitis without hemorrhage Take 1 Capsule by mouth daily. 90 Capsule 3 4 Active ondansetron (ZOFRAN-ODT) 4 mg Oral Tablet, Rapid DissolveIndicati ons:Gastroesopha geal reflux disease with esophagitis without hemorrhage Take 1 Tablet by mouth every 6 hours as needed. 12 Tablet 4 Active LEVOthyroxine (SYNTHROID) 88 mcg Oral TabletIndication s:Hypothyroidism (acquired) Take 1 Tablet by mouth daily. 90 Tablet 3 4 Active fluticasone propion-salmeter oL (ADVAIR HFA) 230-21 mcg/actuation Inhl HFA Aerosol InhalerIndicatio ns:Moderate persistent asthma without complication Inhale 2 Puffs into the lungs 2 times daily. 12 g 2 4 Active oxybutynin (DITROPAN-XL) 10 mg Oral Tablet Extended Rel 24 hrIndications:No cturnal enuresis Take 1 Tablet by mouth daily. 30 Tablet 2 4 Active lisinopriL (PRINIVIL;ZESTRI L) 20 mg Oral Tablet tablet Take 1 Tablet by mouth daily. 100 Tablet 2 4 Active folic acid (FOLVITE) 1 mg Oral TabletIndication s:Low folate TAKE ONE TABLET BY MOUTH ONCE A DAY 100 Tablet 1 5 Active DULoxetine (CYMBALTA) 60 mg Oral Capsule, Delayed Release(E.C.)Ind ications:Depress ion with anxiety TAKE ONE CAPSULE BY MOUTH 2 TIMES A DAY 60 Capsule 5 Active meloxicam (MOBIC) 15 mg Oral TabletIndication s:Arthralgia, unspecified joint TAKE ONE TABLET BY MOUTH ONCE A DAY 30 Tablet 5 Active polyethylene glycol (GOLYTELY) 236-22.74-6.74 -5.86 gram Oral Recon Soln Take as directed by Doctors Office 4000 mL 5 Active metFORMIN (GLUCOPHAGE XR) 500 mg Oral ER 24 hr tabletIndication s:Prediabetes Take 2 Tablets by mouth 2 times daily (with meals). Needs an appointment 120 Tablet 5 Active Active Problems Patient Care Coordination No te Formatting of this note migh t be different from the original. Jese 11/15/11 SSN [id number] NO CONTROLLED SUBSTANCES-2011 uds +thc Controlled substance agreement signed 09/18/11. Jese as expected 02/18/13 Jese #[id number] as expected for SSN/[place]OR[place]-03/14/12. Care gap audit completed by Cary Torrez RN on 12/26/2022. Problem Noted Date Diagnosed Date Screening for colon cancer 04/23/2024 Assessment & Plan (07/06/2024 8:34 PM EDT): Orders: AMB COLON/EGD W ANESTH COMM ORDER Multilevel degenerative disc disease 07/11/2023 Overview (07/11/2023): Multilevel - no neurogenic sx On mobic. Referral to Dr. Raza for mgmt. Thyroid nodule 07/11/2023 Assessment & Plan (07/11/2023 7:56 AM EDT): 2cm, left lobe Order for FNA biopsy. Aortic ectasia 07/11/2023 Overview (07/11/2023): 3.2cm on ct scan 06/2023 Assessment & Plan (07/11/2023 7:56 AM EDT): Bp control, diabetes control, weight loss. Plan to start statin pending labs. Left-sided carotid artery disease 07/11/2023 Overview (07/11/2023): Atherosclerosis seen on scan Repeat u/s 06/2024 Assessment & Plan (07/11/2023 7:55 AM EDT): Plan to start statin pending labs. Prostate disorder 08/29/2022 Assessment & Plan (08/29/2022 4:14 PM EDT): We will measure PSA in light of potential testosterone therapy Hypogonadism male 04/16/2022 Assessment & Plan (08/29/2022 4:14 PM EDT): The patient was found to have low testosterone level. The nature of his condition as well as the results of work-up were discussed with the patient at length. We will assess pituitary gonadal axis and decide on the need for additional intervention. If secondary hypogonadism is suspected a pituitary MRI may be indicated. Different aspects of testosterone replacement as well as the potential risks including elevated PSA, Hematocrit were discussed with the patient in detail. He is aware of the fact that untreated sleep apnea is a relative contraindication for testosterone therapy. The effect of the weight on testosterone regulation was reviewed with the patient in detail. Low folate 01/06/2022 Overview (10/18/2023): on replacement. Low vitamin B12 level 01/06/2022 Overview (10/18/2023): On replacement. Low testosterone 01/06/2022 Overview (01/06/2022): Not on replacement Prediabetes 11/11/2021 Overview (10/18/2023): Lab Results Component Value Date HGBA1C 5.9 (H) 07/11/2023 On metformin Assessment & Plan (08/29/2022 4:15 PM EDT): The importance of increased physical activity and balanced caloric intake to reduce the risk of developing of type 2 diabetes mellitus was emphasized to the patient. The patient was provided with dietary instructions. He was advised to see dietitian Unfortunately GLP-1 RA is not covered under his insurance. He would benefit from metformin trial. He was provided with instructions on how to titrate the medication. Hyperlipidemia with target LDL less than 130 08/2021 Overview (07/11/2023): Start statin Vitamin D deficiency 11/11/2021 Overview (10/18/2023): Has been on replacement. Class 3 severe obesity due t o excess calories with serious comorbidity and body mass index (BMI) of 50.0 to 59.9 in adult 06/10/2014 Assessment & Plan (07/11/2023 11:13 AM EDT): - complicating many conditions. Would benefit from GLP. Plan to prescribe pending A1C result. Assessment & Plan (08/29/2022 4:16 PM EDT): The patient is to concentrate on lifestyle intervention. We will readdress the indications for bariatric surgery Assessment & Plan (11/25/2020 2:24 PM EDT): - reviewed diet and exercise modifications. Reflux esophagitis 05/08/2014 Overview (07/11/2023): Start PPI Encouraged weight loss. Assessment & Plan (07/06/2024 8:34 PM EDT): Orders: AMB COLON/EGD W ANESTH COMM ORDER Gastritis and duodenitis 05/08/2014 Constipation 03/31/2014 Chronic abdominal pain 01/09/2014 Asthma 11/05/2012 Overview (10/18/2023): Moderate sx To restart ICS/LABA Continue albuterol as needed Work on smoking cessation Tobacco use disorder 03/14/2012 HTN (hypertension) 03/13/2012 Overview (10/18/2023): BP Readings from Last 3 Encounters: 10/18/23 (!) 150/88 07/11/23 (!) 160/98 12/14/22 130/84 On lisionpril Assessment & Plan (10/18/2023 2:07 PM EDT): Not well controlled today - suspect combination of asthma, sleep apnea . Recommend restarting inhaler, get updated sleep studies and monitor bp. If no improvement, may add add't meds. Nausea with vomiting 10/11/2011 Assessment & Plan (07/06/2024 8:34 PM EDT): Orders: AMB COLON/EGD W ANESTH COMM ORDER Depression with anxiety 08/09/2010 Overview (05/12/2022): On disability for depression Increase cymbalta to 60mg BID OA (osteoarthritis) 01/12/2010 Overview (11/25/2020): On mobic Obesity, Class III, BMI 40-49.9 (morbid obesity) 01/12/2010 Assessment & Plan (07/06/2024 8:34 PM EDT): Orders: AMB REFERRAL FOR BARIATRICS-SURGICAL Chronic knee pain 01/12/2010 Overview (05/31/2021): Results for orders placed during the hospital encounter of 04/28/21 MRI KNEE LEFT WO CONTRAST Narrative MRI KNEE LEFT WO CONTRAST 04/28/2021 11:09 AM CLINICAL HISTORY: Left knee pain. COMPARISON: MRI left knee 12/13/2006 at [facility]. TECHNIQUE: Multiplanar, multisequence MR images of the left knee were obtained without the use of contrast. FINDINGS: MENISCI: The medial and lateral menisci are intact. LIGAMENTS: There is mucoid intrasubstance change of the ACL without a high-grade tear. The PCL, MCL, and lateral stabilizing structures are intact. EXTENSOR MECHANISM: The quadriceps and patellar tendons are intact. There is lateral patellar tilt and subluxation with current positioning. OSSEOUS STRUCTURES/ARTICULATIONS: No acute fracture or marrow-replacing process is present. There are tricompartmental osteophytes with progressive cartilage loss, particularly within the patellofemoral compartment. This includes multifocal deep partial and full-thickness cartilage defects throughout the central to lateral patella and trochlea with subchondral edema and cystic changes. There is shallow cartilage thinning of the central to posterior femoral condyles and posterior lateral tibial plateau without a high-grade focal defect. FLUID: Trace joint fluid with a small Handley cyst. Two ossified bodies within the Handley cyst measuring up to 10 x 8 mm. Impression : 1. Progressive osteoarthritis, particularly of the patellofemoral compartment which shows severe lateral-sided cartilage loss with subchondral edema and cystic changes. There are ossified bodies within a small Handley cyst. 2. No meniscal tear or ligamentous injury. - Note: Radiology results need to be interpreted within a comprehensive clinical context. If you have questions about the radiology report, please contact the office of the ordering clinician. Switch mobic to voltaren and encouraged close ortho followup. Assessment & Plan (05/31/2021 1:59 PM EDT): pt was specifically requesting gabapentin today for pain. has taken it in past and effective however he admits to THC use. aware that we cannot prescribed Controlled substance with illegal drug use. ocne he is able to maintain cessation, may reconsider. Obstructive sleep apnea of adult 01/12/2010 Assessment & Plan (08/29/2022 4:15 PM EDT): The patient has symptoms highly suggestive of obstructive sleep apnea. Will refer for sleep study. Assessment & Plan (08/25/2022 11:57 AM EDT): Has referral for sleep lab. Encouraged him to schedule this. Assessment & Plan (11/11/2021 9:49 AM EDT): Due for sleep study to get cpap He has the contact information to arrange this. Assessment & Plan (11/25/2020 2:24 PM EDT): Referral to sleep clinic to get updated sleep studies. Resolved Problems Problem Noted Date Diagnosed Date Resolved Date Prostate cancer screening 08/29/2022 Prostate cancer screening 04/16/2022 Nausea 04/08/2014 11/25/2020 Epigastric abdominal pain 04/08/2014 Acute abdominal pain 01/09/2014 014 Metabolic syndrome 12/15/2013 3 Necrotizing fasciitis 12/25/20112013 Wound infection after surgery 11/21/2011 12/15/2013 MRSA (methicillin resistant staph aureus) culture positive 11/21/2011 12/15/2013 Dehiscence of external operation wound 11/21/2011 12/15/2013 Incisional hernia 10/24/2011 12/15/2013 Leukocytosis 10/11/2011 12/15/2013 Abdominal pain 10/11/2011 12/15/2013 Periumbilical hernia 10/11/2011 014 Partial small bowel obstruction 10/11/2011 12/15/2013 Hernia, abdominal 01/12/2010 12/15/2013 Overview (01/12/2010): S/P repair Encounters Date Type Department Care Team Description 07/23/2024 Refill [facility] [address] [place] [address] Brandt, Nat, MANAGER QUALITY COMPLIANCE Refill (/ Disp Refills Start End /metFORMIN (GLUCOPHAGE XR) 500 mg Oral ER 24 hr tablet 120 Tablet 5 12/04/2023 - //) from Last 3 Months Immunizations Immunization Administration Dates Next Due Influenza Vaccine, Unspecified Formulation 10/10 Pfizer SARS-CoV-2 Vaccine 12+ Yrs (Purple Cap) 1 Pneumococcal Polysaccharide 23 Valent 10/24/2011 Surgical History Surgery Date Site/Laterality Comments HERNIA REPAIR HERNIA REPAIR 06/2010 umbilical hernia repair KNEE SURGERY left knee scope UPPER GASTROINTESTINAL ENDOSCOPY 05/08/2014 N/A ESOPHAGOGASTRODUODENOSCOPY with biopsy; Surgeon: Varinder Tobar MD; Location: [facility]; Service: Endoscopy Medical History Medical History Date Comments Depression with anxiety 08/09/2010 Depression Osteoarthritis Asthma no inh Unspecified sleep apnea no machi ne Tobacco use disorder 03/14/2012 Obesity High blood pressure Family History Medical History Relation Name Comments MVA Brother Suicide Father Depression Maternal Grandmother Anxiety Disorder Mother Bipolar Disorder Mother Cancer Mother cervical Depression Mother Cancer Sister breast Anesth Problems Neg Hx Relation Name Status Comments Brother Father Maternal Grandfather Maternal Grandmother Mother Alive Paternal Grandfather Paternal Grandmother Sister Alive Social History Tobacco Use Types Packs/Day Years Used Date Smoking Tobacco: Every Day Cigarettes 1 23 Smokeless Tobacco: Never Tobacco Cessation:Ready to Q uit: Not Asked; Counseling Given: Not Answered Alcohol Use Standard Drinks/Week Comments No 0 (1 standard drink = 0.6 oz pur e alcohol) PHQ-2 Answer Date Recorded PHQ-2 Total Score 0 07/11/2023 Sexually Active Control Partners Comments Yes Sex and Gender Information Value Date Recorded Sex Assigned at Not on file Legal Sex Male 4:48 PM EDT Gender Identity Not on file Sexual Orientation Not on file Obstetrics History Last Filed Vital Signs Vital Sign Reading Time Taken Comments Blood Pressure 172/100 04/23/2024 3:04 PM EDT has not taken hi bp meds today Pulse 94 11/02/2023 10:17 AM EDT Temperature 36.6 C (97.8 F) 11/02/2023 10:17 AM EDT Respiratory Rate 20 11/02/2023 10:1 7 AM EDT Oxygen Saturation 95% 11/02/2023 10: 17 AM EDT Inhaled Oxygen Concentration - - Weight 168.7 kg (372 lb) 04/23/2024 3:0 4 PM EDT Height 190.5 cm (6' 3 ) 04/23/2024 3:04 PM EDT Body Mass Index 46.5 04/23/2024 3:04 PM EDT Plan of Treatment Health Maintenance Due Date Last Done Comments DTaP/TDaP/Td (1 - Tdap) 1992 Hepatitis B Vaccine (1 of 3 - 19+ 3-dose series) 1992 Pneumococcal Vaccine 50+ (2 of 2 - PCV) 10/23/2012 10/24/2011 Cologuard 2018 Colon Cancer Screening 2018 Colonoscopy 2018 FIT 2018 Sigmoidoscopy 2018 Virtual Colonography 2018 Zoster (1 of 2) 09/25/2023 COVID-19 Vaccine (3 - 2023-2 5 season) 2023 12/01/2020, 11/10/2020 Wellness Exam Medicare 07/11/2024 07/11/2023 Influenza Vaccine (#1) 2024 5 (Declined), 02/24/2014 (Declined), 10/11/2011 Low Dose Lung Cancer Screening 10/22/2024 0 10/23/2023, 08/31/2022 Meningococcal B Vaccine Aged Out No l onger eligible based on patient's age to complete this topic Goals Goal Patient Goal Type Associated Problems Recent Progress Patient-Stated? Author Blood Pressure < 140/90 Blood Pressure 172/100(04/23 3:04 PM EDT) No Brandt, Nat, MANAGER QUALITY COMPLIANCE Maintain a healthy diet, exercise regularly and maintain an ideal body weight General No Brandt, Nat, MANAGER QUALITY COMPLIANCE Stay Tobacco Free Lifestyle No Billings, Nat, MANAGER QUALITY COMPLIANCE Medical Devices Implanted Type Area Sales Attendant Device Identifier Shelf Expiration Date Model / Serial / Lot Mesh [employer] Medium Oval [id number] - [id number] Implanted:Qty: 1 on 06/29/2010 at [facility] Abdomen CR BARD:DAVOL 10/06/2013 [id number] / / [id number] Matrix Tissue Strattice 16cm X 20cm Firm - [id number] Implanted:Qty: 320 on 10/23/2011 by Jt Rivera MD at [facility] Explanted:at [facility] (Quantity not on file) N/A: Abdomen LIFECELL 05/22/2013 [id number] / / [id number] Procedures Procedure Name Priority Date/Time Associated Diagnosis Comments CT LUNG CANCER SCREENING LOW DOSE Routine 10/23/2023 1:55 PM EDT Cigarette nicotine dependence without complication Screening for lung cancer from Last 3 Months or Most Recently Relevant to Health Maintenance Results * CT LUNG CANCER SCREENING LOW DOSE (10/23/2023 1:55 PM EDT) Anatomical Region Laterality Modality Lung Computed Tomogra phy 10/23/2023 1:55 PM EDT Impressions 10/23/2023 2:19 PM EDT Unremarkable low-dose screening chest CT. RECOMMENDATION: Low Dose CT - 1 Yr A summary letter communicating these results will be mailed to the patient's address of record. - Note: Radiology results need to be interpreted within a comprehensive clinical context. If you have questions about the radiology report, please contact the office of the ordering clinician. [email or web address] Narrative 10/23/2023 2:[address] LUNG CANCER SCREENING LOW DOSE 10/23/2023 1:55 PM CLINICAL HISTORY: Asymptomatic patient meeting NCCN high risk criteria for lung screening. F17.210-Nicotine dependence, cigarettes, [id number]-[id number]-CM Z12.2-Encounter for screening for malignant neoplasm of respiratory uvzffa-UVV-29-CM. COMPARISON: 08/31/2022 PROCEDURE COMMENTS: Noncontrast, low-dose, multidetector CT chest per department protocol. Interactive 3-D postprocessing done by the reviewing physician on a SYNGO workstation, using Maximum intensity projections (MIPS) and SYNGO LUNG CAD for improved lesion detection. Ramires images archived to PACS. Dose 1 : CT DLP Total : 84.16 mGycm DLP Spiral Max : 80.4 mGycm Maximum CTDI Vol : 2.02 mGy FINDINGS: No suspicious pulmonary nodule. No acute inflammatory process. Heart and mediastinum unremarkable. Coronary artery calcification: Mild. FOLLOW-UP CODE: Lung-RADS Category 1: Negative: No nodule or definitely benign nodule(s). Continued ANNUAL LOW-DOSE SCREENING CT SCAN ([id number] [id number]) suggested if age <78. Lung-RADS Modifier N/A: No Modifier Needed Procedure Note Chon Dias MD - 10/23/2023 CT LUNG CANCER SCREENING LOW DOSE 10/23/2023 1:55 PM CLINICAL HISTORY: Asymptomatic patient meeting NCCN high risk criteria forlung screening. F17.210-Nicotine dependence, cigarettes,fcepmnbfsfwei-FRR-94-CM Z12.2-Encounter for screening for malignant neoplasm of respiratory bpjscd-SDI-75-CM. COMPARISON: 08/31/2022 PROCEDURE COMMENTS: Noncontrast, low-dose, multidetector CT chest perdepartment protocol. Interactive 3-D postprocessing done by the reviewing physicianon a SYNGO workstation, using Maximum intensity projections (MIPS) and SYNGOLUNG CAD for improved lesion detection. Ramires images archived to PACS. Dose 1 : CT DLP Total : 84.16 mGycm DLP Spiral Max : 80.4 mGycm Maximum CTDI Vol : 2.02 mGy FINDINGS: No suspicious pulmonary nodule. No acute inflammatory process. Heart and mediastinum unremarkable. Coronary artery calcification: Mild. FOLLOW-UP CODE: Lung-RADS Category 1: Negative: No nodule or definitelybenign nodule(s). Continued ANNUAL LOW-DOSE SCREENING CT SCAN (IMG [id number])suggested if age <78. Lung-RADS Modifier N/A: No Modifier Needed IMPRESSION: Unremarkable low-dose screening chest CT. RECOMMENDATION: Low Dose CT - 1 Yr A summary letter communicating these results will be mailed to thepatient's address of record. - Note: Radiology results need to be interpreted within a comprehensiveclinical context. If you have questions about the radiology report, please contactthe office of the ordering clinician. [email or web address] Nat Carlton APRN IMG CT ORDERABLES Final Res ult from Last 3 Months or Most Recently Relevant to Health Maintenance Insurance [employer] MEDICARE MR [facility] MEDICARE MR Care Teams Foundry Manager Relationship Specialty Start Date End Date Nat [place] [address] [place] [address] PCP - General Nurse Practitioner-Family 11/26/20 Sirisha Deras MD [address] [place] [address] Consulting Physician Internal Medicine-Endocrinology, Diabetes & Metabolism 08/29/22
--- NOTE | 2024-08-06 13:45 | A.OFFVIS_ITS ---
[facility] Disclaimer: The information contained in this section may have been updated after the patient was seen, as this information can be updated by other users. 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 Patient states that this injection has worked wonderful and did have 90% improvement and is still doing better. He rates his pain today as 0 out of 10. He denies any new injuries or falls. Patient was prescribed methocarbamol 750 mg 3 times a day from our last appointment and he does state that this has actually been helping with his shoulder pain. Patient is requesting a refill. His Jese has been reviewed and is appropriate. Review of Systems: General: No recent weight changes, no fever, no sleep disturbances Respiratory: No cough, no shortness of air, no recurring pulmonary infections Cardiovascular/peripheral vascular: No chest pain, no palpitations, no edema, no shortness of breath Gastrointestinal: No new onset incontinence, normal bowel movements reported Genitourinary: No new onset incontinence Musculoskeletal: Low back pain, shoulder pain Psychiatric: [Normal mood/affect] Neurological: [Denies weakness in extremities], [denies balance issues] Pain at rest (0-10 scale): 0 Objective Objective:: Physical Exam: General: Alert and oriented x3, no acute distress, pleasant and cooperative Lungs: Respirations even and unlabored, symmetrical chest expansion Eyes: PERRL Musculoskeletal: Flexion and extension of lumbar [spine] within normal limits Neurological: Speech clear, no gross sensory deficit Has patient had previous pain injection?: Yes Percent improvement in pain since last injection: 90% Conservative treatment options previously tried: Home exercise plan Length of treatment: Longer than 12 weeks Meds Home Medications and Allergies Home Medications ?Medication ?Instructions ?Recorded ?Confirmed ?Type albuterol sulfate 90 mcg/actuation 1 - 2 puffs IH Q4HP PRN Shortness 03/25/21 07/01/24 Rx aerosol inhaler Of Breath #1 ea duloxetine 60 mg capsule,delayed 60 mg PO DAILY Anxiet y 11/29/21 07/01/24 History release diclofenac sodium 75 mg 75 mg PO BID PRN . 02/28/22 07/01/24 History tablet,delayed release lisinopril 20 mg tablet See Rx Instructions .Route 0 03/30/22 07/01/24 Rx .COMPLEX #30 tabs methocarbamol 750 mg tablet 750 mg PO TID #42 tabs 07/01/24 Rx New Prescriptions to Start Prescriptions: Allergies Allergy/AdvReac Type Severity Reaction Status Date / Time morphine (MORPHINE) Allergy Severe HALLUCINATI Verified 10/09/23 08:30 ON Assessment and Plan *Assessment and plan (1) Degenerative disc disease, lumbar: Status: Acute Category: Medical Code(s): M51.369 - Other intervertebral disc degeneration, lumbar region without mention of lumbar back pain or lower extremity pain (2) Lumbar spondylosis: Status: Acute Category: Medical Code(s): M47.816 - Spondylosis without myelopathy or radiculopathy, lumbar region Plan Patient has had a very successful initial lumbar medial branch block and does not require any additional injection therapy at this time. I will see the patient back in 6 weeks for additional evaluation. He was counseled that when the pain does start to return we will plan on repeating this lumbar block with the plan to proceed forward with the lumbar RFA at a later date. I will refill the patient's methocarbamol. Patient will return to clinic in 6 weeks. Patient has been instructed to contact the clinic with any concerns before the next appointment. Dr. Raza has reviewed this note and agrees with this plan of care. This note was dictated using voice recognition software and make contain errors or omissions. All injections are used with Lidocaine, Bupivacaine and dexamethasone. Occasionally urine drug screen is needed to verify patient's compliance with our office pain contract. This is ordered based off specific treatments related to chronic pain with the potential to abuse certain medications.
[2024-08-06 14:18] VITALS: BP 150/90; PULSE 77; RESP 18; O2SAT 94; BMI 47.5
== END 2024-08-06 23:59 | disposition home or self-care (01) ==
PROVIDERS: PCP Nurse Practitioner; Visit Provider Nurse Practitioner Family
DX: M51.360 Other intervertebral disc degeneration, lumbar region with discogenic back pain only (principal); M47.816 Spondylosis without myelopathy or radiculopathy, lumbar region; Z79.899 Other long term (current) drug therapy
CPT/HCPCS: 99212; G0463

== ENCOUNTER 2024-09-08 15:36 | Outpatient (POV) | payer MEDICARE, SELFPAY ==
--- OUTSIDE RECORDS SUMMARY | 2024-09-08 15:38 | XMS_ITS | Clinical Summary ---
Author Organization [facility] are Address [address] [place] [address] Phone Care Team Providers Care Learning Disabled Teacher Name Role Phone Unavailable Unavailable Conditions or Problems No information available. Medications No information available. Medications Administered No information available. Allergies, Adverse Reactions, Alerts No information available. Results No information available. Plan of Care No information available. Procedures No information available. Vital Signs No information available. Immunizations No information available. Advance Directives No information available.
--- OUTSIDE RECORDS SUMMARY | 2024-09-08 15:39 | XMS_ITS | Clinical Summary ---
Author Organization [facility] Address [address] [place] [address] Phone Care Team Providers Care Farmer Cash Grain Name Role Phone Nat Carlton APRN Primary Care Provider [phone] Sirisha Deras MD Unavailable [phone] Allergies Active Allergy Reactions Criticality Noted Date [...] different from the original. Jese 11/15/11 SSN [id number] NO CONTROLLED SUBSTANCES-2011 uds +thc Controlled substance agreement signed 09/18/11. Jese as expected 02/18/13 Jese #[id number] as expected for SSN/[place]-03/14/12. Care gap audit [...] pain. COMPARISON: MRI left knee 12/13/2006 at [facility]. TECHNIQUE: Multiplanar, multisequence MR images of the [...] Description 07/23/2024 Refill [facility] [address] [place] [address] Brandt, Nat, INSPECTOR FLOOR Refill (/ Disp Refills Start End /metFORMIN [...] Blood Pressure 172/100(04/23 3:04 PM EDT) No Mallory, Nat, INSPECTOR FLOOR Maintain a healthy diet, exercise regularly and maintain an ideal body weight General No Mallory, Nat, INSPECTOR FLOOR Stay Tobacco Free Lifestyle No Mallory, Nat, INSPECTOR FLOOR Medical Devices Implanted Type Area Steel Layout Worker Device Identifier Shelf Expiration Date Model / Serial / Lot Mesh [employer] Medium Oval [id number] - [id number] Implanted:Qty: 1 on 06/29/2010 at [facility] Abdomen CR BARD:DAVOL 10/06/2013 [id number] / / [id number] Matrix Tissue Strattice 16cm X 20cm Firm - [id number] Implanted:Qty: 320 on 10/23/2011 by Jt Rivera MD at [facility] Explanted:at [facility] (Quantity not on file) N/A: Abdomen LIFECELL 05/22/2013 [id number] / / [id number] Procedures Procedure Name Priority Date/Time Associated Diagnosis [...] contact the office of the ordering clinician. [email or web address] Narrative 10/23/2023 2:[address] LUNG CANCER SCREENING LOW DOSE 10/23/2023 1:55 PM CLINICAL HISTORY: Asymptomatic patient meeting NCCN high risk criteria for lung screening. F17.210-Nicotine dependence, cigarettes, jascvvjczqxog-KVM-89-CM Z12.2-Encounter for screening for malignant neoplasm of respiratory qolynk-YGX-41-CM. COMPARISON: 08/31/2022 PROCEDURE COMMENTS: Noncontrast, low-dose, multidetector [...] Continued ANNUAL LOW-DOSE SCREENING CT SCAN (IMG 31060) suggested if age <78. Lung-RADS Modifier N/A: No Modifier Needed Procedure Note Chon Dias MD - 10/23/2023 CT LUNG CANCER SCREENING LOW DOSE 10/23/2023 1:55 PM CLINICAL HISTORY: Asymptomatic patient meeting NCCN high risk criteria forlung screening. F17.210-Nicotine dependence, cigarettes,sgmmilbuylgme-TTS-94-CM Z12.2-Encounter for screening for malignant neoplasm of respiratory xspkew-GHV-99-CM. COMPARISON: 08/31/2022 PROCEDURE COMMENTS: Noncontrast, low-dose, multidetector [...] Continued ANNUAL LOW-DOSE SCREENING CT SCAN (IMG 05005)suggested if age <78. Lung-RADS Modifier N/A: No Modifier Needed IMPRESSION: Unremarkable low-dose screening chest CT. RECOMMENDATION: Low Dose CT - 1 Yr A summary letter communicating these results will be mailed to thepatient's address of record. - Note: Radiology results need to be interpreted within a comprehensiveclinical context. If you have questions about the radiology report, please contactthe office of the ordering clinician. [email or web address] Nat Carlton APRN IMG CT ORDERABLES Final Res ult from Last 3 Months or Most Recently Relevant to Health Maintenance Insurance [employer] MEDICARE MR [facility] [address] MEDICARE MR Care Teams Farmer Cash Grain Relationship Specialty Start Date End Date Nat Carl[place] [address] [place] [address] PCP - General Nurse Practitioner-Family 11/26/20 Sirisha Deras MD [address] [place] [address] Consulting Physician Internal Medicine-Endocrinology, Diabetes & Metabolism 08/29/22
--- OUTSIDE RECORDS SUMMARY | 2024-09-08 15:39 | XMS_ITS | Clinical Summary ---
Author Organization [facility] Address [address] [place] [id number] Care Team Providers Care Analog Circuit Designer Name Role Phone Unavailable Primary Care Provider [...] therelease of HIV test results or diagnoses. [id number] Health Allergies Active Allergy [...]
--- OUTSIDE RECORDS SUMMARY | 2024-09-08 15:39 | XMS_ITS | Encounter Summary ---
Author Organization [place] [address] Care Team Providers Care Equipment Records Supervisor Name Role Phone Nat Carlton APRN Primary Care Provider Sirisha Deras MD Unavailable [phone] Reason for Visit * Reason Onset Date Comments Refill 07/23/2024 Disp [address]ills [address] End metFORMIN (GLUCOPHAGE XR) 500 mg Oral ER 24 hr tablet 120 Tablet 5 12/04/2023 - Encounter Details Date Type Department Care Team (Late st Contact Info) Description 07/23/2024 Refill [facility] [address] [place] [id number] Nat Carlton APRN [address] [place] [address] Refill (/ Disp Refills Start End /metFORMIN [...] Refill Who is requesting the refill: Other [employer] Medication(s)Name/Dosage/Frequency: Disp Refills Start End metFORMIN (GLUCOPHAGE XR) 500 mg Oral ER 24 hr tablet 120 Tablet 5 12/04/2023 -- Did patient contact the pharmacy first: No, [facility] medication has been past due for 10 days. How many days left on hand: N/A Future appt date w/ prescribing provider: None Pharmacy & Location: [facility] - [place] [address] - [address] - [phone] [[id number]] Return Method of Communication: N/A Additional Information: [...] documented as of this encounter Care Teams Equipment Records Supervisor Relationship Specialty Start Date End Date Nat Carlton APRN [address] [place] [address] PCP - General Nurse Practitioner-Family 11/26/20 Sirisha Deras MD [address] [place] [address] Consulting Physician Internal Medicine-Endocrinology, Diabetes & Metabolism 08/29/22 documented as of this encounter
--- OUTSIDE RECORDS SUMMARY | 2024-09-08 15:39 | XMS_ITS | Clinical Summary ---
Author Organization [facility] Address [address] [place] [address] Care Team Providers Care Tool Room Supervisor Name Role Phone Sidney Judge MD Primary Care Provider [phone] Family History Medical History Relation Name Comments [...] of Treatment Not on file Care Teams Tool Room Supervisor Relationship Specialty Start Date End Date Sidney Judge MD [address] [place] [address] PCP - General 06/18/20
[2024-09-08 15:47] VITALS: BP 136/74; PULSE 80; RESP 14; O2SAT 93; BMI 47.5
--- NOTE | 2024-09-08 15:57 | EXP.PAIN.SOA ---
[facility] Disclaimer: The information contained in this section may have been updated after the patient was seen, as this information can be updated by other users. 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 He rates his pain today at 3 out of 10. He denies any new trauma or injury. He does state overall he is still doing well from his first lumbar medial branch block that was done in June with 90% improvement. He does feel like this is still helping and that his current pain is very much manageable. He is prescribed methocarbamol 750 mg 3 times a day from our office. He denies any side effects or any need for refills currently. His Jese has been reviewed and is appropriate. Review of Systems: General: No recent weight changes, no fever, no sleep disturbances Respiratory: No cough, no shortness of air, no recurring pulmonary infections Cardiovascular/peripheral vascular: No chest pain, no palpitations, no edema, no shortness of breath Gastrointestinal: No new onset incontinence, normal bowel movements reported Genitourinary: No new onset incontinence Musculoskeletal: Low back pain Psychiatric: [Normal mood/affect] Neurological: [Denies weakness in extremities], [denies balance issues] Pain at rest (0-10 scale): 3 Objective Objective:: Physical Exam: General: Alert and oriented x3, no acute distress, pleasant and cooperative Lungs: Respirations even and unlabored, symmetrical chest expansion Eyes: PERRL Musculoskeletal: Flexion and extension of lumbar [spine] somewhat guarded secondary to pain, [antalgic gait noted] Neurological: Speech clear, no gross sensory deficit Has patient had previous pain injection?: No Conservative treatment options previously tried: Home exercise plan Length of treatment: Longer than 12 weeks Meds Home Medications and Allergies Home Medications ?Medication ?Instructions ?Recorded ?Confirmed ?Type albuterol sulfate 90 mcg/actuation 1 - 2 puffs IH Q4HP PRN Shortness 03/25/21 09/08/24 Rx aerosol inhaler Of Breath #1 ea duloxetine 60 mg capsule,delayed 60 mg PO DAILY Anxiety 11/29/21 09/08/24 History release diclofenac sodium 75 mg 75 mg PO BID PRN . 02/28/22 09/08/24 History tablet,delayed release lisinopril 20 mg tablet See Rx Instructions .Route 03/30/22 09/08/24 Rx .COMPLEX #30 tabs methocarbamol 750 mg tablet 750 mg PO TID #90 tabs 08/06/24 09/08/24 Rx New Prescriptions to Start Prescriptions: Allergies Allergy/AdvReac Type Severity Reaction Status Date / Time morphine (MORPHINE) Allergy Severe HALLUCINATI Verified 10/09/23 08:30 ON Assessment and Plan *Assessment and plan (1) Lumbar spondylosis: Status: Acute Category: Medical Code(s): M47.816 - Spondylosis without myelopathy or radiculopathy, lumbar region (2) Low back pain: Status: Acute Category: Medical Code(s): M54.50 - Low back pain, unspecified Plan Patient is still doing well overall and does not require any additional interventions or injection therapy currently. We will follow-up with him in 6 weeks. Patient has been instructed to contact the clinic with any concerns before the next appointment. Dr. Raza has reviewed this note and agrees with this plan of care. This note was dictated using voice recognition software and make contain errors or omissions. All injections are used with Lidocaine, Bupivacaine and dexamethasone. Occasionally urine drug screen is needed to verify patient's compliance with our office pain contract. This is ordered based off specific treatments related to chronic pain with the potential to abuse certain medications.
== END 2024-09-08 23:59 | disposition home or self-care (01) ==
LOC: SC.PAIN 15:37
PROVIDERS: PCP Nurse Practitioner; Visit Provider Nurse Practitioner Family
DX: M54.50 Low back pain, unspecified (principal); Z79.899 Other long term (current) drug therapy
CPT/HCPCS: 99212; G0463